=== PATIENT | female | born 1945 | race Two or more races ===

== ENCOUNTER 2024-06-13 03:31 | Inpatient (IN) | payer OTHER ==
[~2024-06-13] VITALS: Ht 157.5 cm; Wt 59.0 kg
[2024-06-13] VITALS (11 sets, daily range): BP systolic 104–150; BP diastolic 46–67; PULSE 72–97; RESP 14–20; TEMP 97.9–99.2; O2SAT 94–100
[2024-06-13] MEDS ORDERED: AZTREONAM 1GM INJ 1 GM in D5W 5% 50 ML IV ONE (04:00)
--- NOTE | 2024-06-13 04:23 | ED.PDOC ---
Altered Mental Status HPI Comments 79 year old female brought in by EMS presents to the ED with a chief complaint of ALOC onset today (06/13/2024) around 00:00. Per EMS, family members state patient began acting altered around midnight, went to bed, woke up around 03:00 trying to get out of bed, confused, altered, and weak. Patient was diagnosed w ith UTI about 2 weeks ago, finished antibiotics about 3 days ago. Family members noticed patient is acting similar to when she was first diagnosed with UTI. Per family patient's baseline is A&O x4, and is currently A&O x0. Upon EMS arrival, O2 sat was 90% on RA, was placed on 2L and O2 sat improved to 97%, tachycardiac 130-135 bpm, temperature 100.3F, BP initially 130 systolic. PMHx HTN, DM, skin and bone cancer. Chief Complaint: ALOC Time Seen by MD: 03:51 Reviewed Notes: Medications, Allergies Allergies: Coded Allergies: Iodine (Verified Allergy, Unknown, 06/13/24) Levofloxacin (Verified Allergy, Unknown, 06/13/24) Penicillins (Verified Allergy, Unknown, 06/13/24) Sulfa Antibiotics (Verified Allergy, Unknown, 06/13/24) Information Source: Patient, Emergency Med Personnel Mode of Arrival: EMS Severity: Moderate Timing: Hours Duration: Since onset Prehospital treatment: Oxygen (2L) Quality: Decreased Alertness, Change in Behavior Recent: Urinary Symptoms History of: Diabetes Associated Signs and Symptoms: None Past Medical History PAST MEDICAL HISTORY: Cancer (skin, bone), DM, HTN, UTI'S Surgical History: Unknown COST ACCOUNTING MANAGER History: No Pertinent COST ACCOUNTING MANAGER History Family History Family History: Unknown Social History Smoker: Non-Smoker Alcohol: Denies ETOH Use Drugs: Denies Drug Use Lives In: Home Constitutional: reports: fever, weakness; denies: chills, diaphoresis, fatigue, malaise, sweats, others EENTM: denies: blurred vision, double vision, ear bleeding, ear discharge, ear drainage, ear pain, ear ringing, eye pain, eye redness, hearing loss, mouth pain, mouth swelling, nasal discharge, nose bleeding, nose congestion, nose pain, photophobia, tearing, throat pain, throat swelling, voice changes, others Respiratory: denies: cough, hemoptysis, orthopnea, SOB at rest, shortness of breath, SOB with excertion, stridor, wheezing, others Cardiovascular: denies: chest pain, dizzy spells, diaphoresis, Dyspnea on exertion, edema, irregular heart beat, left arm pain, lightheadedness, palpitations, PND, syncope, others Gastrointestinal: denies: abdomen distended, abdominal pain, blood streaked bowels, constipated, diarrhea, dysphagia, difficulty swallowing, hematemesis, melena, nausea, poor appetite, poor fluid intake, rectal bleeding, rectal pain, vomiting, others Genitourinary: denies: abnormal vagina bleeding, burning, dyspareunia, dysuria, flank pain, frequency, hematuria, incontinence, pain, , vagina discharge, urgency, others Neurological: reports: weakness; denies: dizziness, fainting, headache, left sided numbness, left sided weakness, numbness, paresthesia, pre-existing deficit, right sided numbness, right sided weakness, seizure, speech problems, tingling, tremors, others Musculoskeletal: denies: back pain, gout, joint pain, joint swelling, muscle pain, muscle stiffness, neck pain, others Integumetry: denies: bruises, change in color, change in hair/nails, dryness, laceration, lesions, lumps, rash, wounds, others Allergic/Immunocompromised: denies: Difficulty Healing, Frequent Infections, Hives, Itching, others Hematologic/Lymphatic: denies: anemia, blood clots, easy bleeding, easy bruising, swollen glands, others Endocrine: denies: excessive hunger, excessive sweating, excessive thirst, excessive urination, flushing, intolerance to cold, intolerance to heat, unexplained weight gain, unexplained weight loss, others Psychiatric: denies: anxiety, bipolar disorder, depression, hopeless, panic disorder, schizophrenia, sleepless, suicidal, others Unable to Obtain due to: Altered Mental Status All Other Systems: Reviewed and Negative Physical Exam General Appearance: No Apparent Distress HEENT: PERRL/EOMI, Other (Dry mucous membranes) Neck: Full Range of Motion, Non-Tender, Normal Inspection Respiratory: Crackles, Decreased Breath Sounds, No Accessory Muscle Use, No Re spiratory Distress Cardiovascular: No Edema, No JVD, Regular Rate/Rhythm Breast Exam: Deferred Gastrointestinal: Non Tender, Soft Genitalia: Deferred Pelvic: Deferred Rectal: Deferred Extremities: Normal inspection, Normal range of motion, Non-tender, No pedal edema Neurologic: Alert (Somnolent, oriented x1), Other (Moves all extremities. No gross focal deficit. Confused. Does not follow commands.) Cerebellar Function: NOT DONE Reflexes: NOT DONE Skin: Dry, Normal Color, Warm Lymphatic: NOT DONE Was a procedure done? Was a procedure done?: No Differential Diagnosis (ALOC) Differential Diagnosis: Dehydration, Hypoglycemia, Encephalopathy, Sepsis, CVA, Mass Lesion, SAH, Other (UTI, pneumonia, among others) X-Ray, Labs, Meds, VS Vital Signs Date Time Temp Pulse Resp B/P (MAP) Pulse Ox O2 Delivery O2 Flow Rate FiO2 06/13/24 04:37 20 99 Nasal Cannula* 3 32 06/13/24 04:32 100.2 06/13/24 04:00 126 06/13/24 03:52 100.2 117 17 129/89 (102) 98 Lab Test 06/13/24 05:15 06/13/24 04:05 06/13/24 04:02 Range/Units Troponin I High Sensitivity Pending 9 </=34 ng/L White Blood Count 6.9 4.4-10.8 10^3/uL Red Blood Count 4.30 4.0-5.20 10^6/uL Hemoglobin 13.5 12.2-16.2 g/dL Hematocrit 39.8 36.0-46.0 % Mean Corpuscular Volume 92.5 80.0-100.0 fL Mean Corpuscular Hemoglobin 31.3 28.0-32.0 pg Mean Corpuscular Hemoglobin Concent 33.8 32.0-36.0 g/dL Red Cell Distribution Width 14.6 H 11.8-14.3 % Platelet Count 325 140-450 10^3/uL Mean Platelet Volume 7.4 6.9-10.8 fL Neutrophils (%) (Auto) 90.8 H 37.0-80.0 % Lymphocytes (%) (Auto) 5.7 L 10.0-50.0 % Monocytes (%) (Auto) 2.9 0.0-12.0 % Eosinophils (%) (Auto) 0.1 0.0-7.0 % Basophils (%) (Auto) 0.5 0.0-2.0 % Neutrophils # (Auto) 6.3 1.6-8.6 10 ^3/uL Lymphocytes # (Auto) 0.4 0.4-5.4 10 ^3/uL Monocytes # (Auto) 0.2 0-1.3 10 ^3/uL Eosinophils # (Auto) 0 0-0.8 10 ^3/uL Basophils # (Auto) 0 0-0.2 10 ^3/uL Nucleated Red Blood Cells 0.1 % Sodium Level 141 136-145 mmol/L Potassium Level 4.3 3.5-5.1 mmol/L Chloride Level 108 H 98-107 mmol/L Carbon Dioxide Level 23 20-31 mmol/L Anion Gap 10 5-15 Blood Urea Nitrogen 34 H 9-23 mg/dL Creatinine 1.35 H 0.550-1.02 mg/dL Glomerular Filtration Rate Calc 40 >90 mL/min BUN/Creatinine Ratio 25.2 H 10.0-20.0 Serum Glucose 125 H 74-106 mg/dL Lactic Acid Level 0.9 0.4-2.0 mmol/L Calcium Level 9.4 8.7-10.4 mg/dL Total Bilirubin 0.4 0.2-1.0 mg/dL Aspartate Amino Transferase (AST) 23 13-40 U/L Alanine Aminotransferase (ALT) 18 7-40 U/L Alkaline Phosphatase 105 46-116 U/L B-Type Natriuretic Peptide 26.63 0-100 pg/mL Total Protein 5.5 L 5.7-8.2 g/dL Albumin 3.9 3.2-4.8 g/dL POC Glucose 136 H 70-106 mg/dl Current Medications Medications (Trade) Dose Ordered Sig/Ben Route Start Time Stop Time Status Last Admin Acetaminophen (Tylenol Tablet Or Capsule) 1,000 mg ONCE ONCE PO 06/13/24 04:00 06/13/24 04:01 DC 06/13/24 04:32 Vancomycin HCl 250 ml @ 250 mls/hr ONCE ONCE IV 06/13/24 04:00 06/13/24 04:59 DC 06/13/24 04:44 Albuterol (Ventolin Medneb) 2.5 mg ONCE ONCE NEB 06/13/24 04:00 06/13/24 04:01 DC 06/13/24 04:37 Ipratropium [place] (Atrovent Medneb) 0.5 mg ONCE ONCE NEB 06/13/24 04:00 06/13/24 04:01 DC 06/13/24 04:37 PROCEDURE(s): HWOCT - HEAD WITHOUT CONTRAST REASON: aloc ORDER NUMBER(s): [id number], ACCESSION NUMBER(s): [id number] EXAM: CT HEAD WITHOUT CONTRAST INDICATION: aloc TECHNIQUE: CT of the head without intravenous contrast. Coronal and sagittal reformatted images are submitted. Radiation Dose : 1. Head: CT Dose: CTDI volume is 54.7 mGy. Dose-length product is 966.0 mGy*cm The dose indicators for CT are the volume Computed Tomography (CT) Dose Index (CTDIvol) and the Dose Length Product (DLP), and are measured in units of mGy and mGy-cm, respectively. These indicators are not patient dose, but values generated from the CT scanner acquisition factors. The report includes radiation exposure data for exposures received during this examination. All CT scans at this medical facility are performed using dose modulation techniques as appropriate to a performed exam including the following: Automated exposure control was utilized; adjustment of the MA and/or KV according to patient size; and use of iterative reconstruction technique. COMPARISON: None FINDINGS: There is no evidence of acute intracranial hemorrhage, extra-axial collection, mass effect, midline shift, herniation or hydrocephalus. The ventricles, sulci and cisterns are age appropriate. The pastrana-white differentiation is intact. Mastoid air cells are clear. Mucosal thickening is present in the left maxillary sinus. No depressed calvarial fracture. The surrounding soft tissues are unremarkable. IMPRESSION: 1. No evidence of acute intracranial abnormality. EDURE(s): CXRP - CHEST PORTABLE REASON: aloc, fever ORDER NUMBER(s): [id number], ACCESSION NUMBER(s): [id number] CHEST RADIOGRAPH Indication: aloc, fever Technique: Single frontal view of the chest was obtained Comparison: None FINDINGS: Lines and Tubes: None Lungs: Patchy right upper lobe consolidation. Pleura: No effusion. No pneumothorax. Cardiomediastinal contours: Unremarkable Bones: No acute osseous abnormality. IMPRESSION: 1. Patchy right upper lobe consolidation compatible with pneumonia. X-Ray, Labs, Meds, VS Comment 79-year-old female with a history of hypertension, diabetes, cancer and UTIs presenting with altered mental status Vitals remarkable for temperature 100.2, oxygen saturation 90% on room air Exam remarkable for diminished breath sounds, productive sounding cough, bilateral scattered crackles Rhythm strip independently interpreted by me: Sinus tach, rate 115, no ectopy. Chest x-ray IMPRESSION: 1. Patchy right upper lobe consolidation compatible with pneumonia. CT head IMPRESSION: 1. No evidence of acute intracranial abnormality. CBC unremarkable, metabolic panel remarkable for BUN 34, creatinine 1.35, lactate normal, BNP and troponin unremarkable Patient treated with the following in the ED: Albuterol 5 mg/Atrovent 0.5 mg nebulized, aztreonam 1 g IV, vancomycin 1 g IV, Tylenol 1 g p.o. On re-evaluation, patient is more alert and conversant, but still confused. She is not in respiratory distress. Oxygen saturation is normal on nasal cannula. Plan is to admit the patient for IV antibiotics and respiratory support as needed. Time of 1ST Reevaluation: 04:21 Reevaluation 1ST: Unchanged Patient Education/Counseling: Diagnosis, Treatment, Prognosis Family Education/Counseling: No Family Present Additional Information The following tests were ordered, and results were reviewed by me: TROP -x3, UA, CBC, CMP, XY CHEST, BLOOD CULTURE, BNP, CT HEAD WITHOUT CONTRAST I reviewed and agreed with the following test results read by other providers: CT HEAD WITHOUT CONTRAST, XY CHEST Additional Information was gathered from interviewing the following independent historians: EMS I discussed treatment and results with medical personnel and: patient, Departure 1 Departure Time of Disposition: 05:38 Impression: Primary Impression: Metabolic encephalopathy Additional Impression: Pneumonia Qualified Codes: J18.9 - Pneumonia, unspecified organism Disposition: ADMITTED INPATIENT Admit to: Tele Condition: Guarded Critical Care Note Critical Care Time?: No Stability Stability form required: No Heart Score Heart Score: Heart Score Response (Comments) Value History N/A 0 EKG N/A 0 Age N/A 0 Risk Factors N/A 0 Troponin N/A 0 Total 0 I personally scribed for JAYME DIAZ MD ([email or web address]) on 06/13/24 at 04:23. Electronically submitted by Izzy Kwong ([email or web address]). I personally scribed for JAYME DIAZ MD ([email or web address]) on 06/13/24 at 04:24. Electronically submitted by Izzy Kwong ([email or web address]). I personally scribed for JAYME DIAZ MD ([email or web address]) on 06/13/24 at 04:47. Electronically submitted by Izzy Kwong ([email or web address]). JAYME DIAZ MD Jun 13, 2024 04:23
[2024-06-13] MEDS: ACETAMINOPHEN 500 MG TAB or CAP PO ONE (04:32)
[2024-06-13] MEDS: IPRATROPIUM BROM 0.5 MG/2.5ML INH SOL NEB ONE (04:37)
[2024-06-13] MEDS: ALBUTEROL SULF 2.5 MG/0.5ML(0.5%) NEB SOLN NEB ONE (04:37)
[2024-06-13 04:42] LABS: Basophils # (auto) 0 10 ^3/uL (0-0.2); Basophils % (auto) 0.5 % (0.0-2.0); Eosinophils # (auto) 0 10 ^3/uL (0-0.8); Eosinophils % (auto) 0.1 % (0.0-7.0); Hematocrit 39.8 % (36.0-46.0); Hemoglobin 13.5 g/dL (12.2-16.2); Lymphocytes # (auto) 0.4 10 ^3/uL (0.4-5.4); Lymphocytes % (auto) 5.7 % (10.0-50.0); Mean Corpuscular Hemoglobin 31.3 pg (28.0-32.0); Mean Corpuscular Hgb Conc. 33.8 g/dL (32.0-36.0); Mean Corpuscular Volume 92.5 fL (80.0-100.0); Monocytes # (auto) 0.2 10 ^3/uL (0-1.3); Monocytes % (auto) 2.9 % (0.0-12.0); Neutrophils # (auto) 6.3 10 ^3/uL (1.6-8.6); Neutrophils % (auto) 90.8 % (37.0-80.0); Nucleated Red Blood Cells % 0.1 %; Platelet Count (auto) 325 10^3/uL (140-450); Red Cell Distribution Width 14.6 % (11.8-14.3); White Blood Cell 6.9 10^3/uL (4.4-10.8)
[2024-06-13] MEDS: VANCOMYCIN 1GM/250ML KIT 250 ML IV ONE (04:44)
[2024-06-13] MEDS: AZTREONAM 1GM INJ 1 GM in D5W 5% 50 ML IV ONE (04:45)
--- NOTE | 2024-06-13 04:51 | DVH ---
CHEST RADIOGRAPH Indication: aloc, fever Technique: Single frontal view of the chest was obtained Comparison: None FINDINGS: Lines and Tubes: None Lungs: Patchy right upper lobe consolidation. Pleura: No effusion. No pneumothorax. Cardiomediastinal contours: Unremarkable Bones: No acute osseous abnormality. IMPRESSION: 1. Patchy right upper lobe consolidation compatible with pneumonia.
--- NOTE | 2024-06-13 04:51 | DVH ---
EXAM: CT HEAD WITHOUT CONTRAST INDICATION: aloc TECHNIQUE: CT of the head without intravenous contrast. Coronal and sagittal reformatted images are submitted. Radiation Dose : 1. Head: CT Dose: CTDI volume is 54.7 mGy. Dose-length product is 966.0 mGy*cm The dose indicators for CT are the volume Computed Tomography (CT) Dose Index (CTDIvol) and the Dose Length Product (DLP), and are measured in units of mGy and mGy-cm, respectively. These indicators are not patient dose, but values generated from the CT scanner acquisition factors. The report includes radiation exposure data for exposures received during this examination. All CT scans at this medical facility are performed using dose modulation techniques as appropriate to a performed exam including the following: Automated exposure control was utilized; adjustment of the MA and/or KV according to patient size; and use of iterative reconstruction technique. COMPARISON: None FINDINGS: There is no evidence of acute intracranial hemorrhage, extra-axial collection, mass effect, midline s hift, herniation or hydrocephalus. The ventricles, sulci and cisterns are age appropriate. The pastrana-white differentiation is intact. Mastoid air cells are clear. Mucosal thickening is present in the left maxillary sinus. No depressed calvarial fracture. The surrounding soft tissues are unremarkable. IMPRESSION: 1. No evidence of acute intracranial abnormality.
[2024-06-13 04:59] LABS: Alanine Aminotransferase 18 U/L (7-40); Albumin 3.9 g/dL (3.2-4.8); Alkaline Phosphatase 105 U/L (46-116); Anion Gap 10 (5-15); Aspartate Aminotransferase 23 U/L (13-40); BUN/Creatinine Ratio 25.2 (10.0-20.0); Calcium 9.4 mg/dL (8.7-10.4); Carbon Dioxide 23 mmol/L (20-31); Potassium 4.3 mmol/L (3.5-5.1); Sodium 141 mmol/L (136-145)
[2024-06-13 05:00] LABS: Bilirubin, Total 0.4 mg/dL (0.2-1.0)
[2024-06-13 05:03] LABS: Blood Urea Nitrogen 34 mg/dL (9-23); Chloride 108 mmol/L (98-107); Glucose 125 mg/dL (74-106); Total Protein 5.5 g/dL (5.7-8.2)
[2024-06-13] MEDS ORDERED: DEXTROSE (50%) 50ML SYRG IV PRN (07:45)
[2024-06-13] MEDS ORDERED: IPRATROPIUM BROM 0.5 MG/2.5ML INH SOL NEB PRN (07:45)
[2024-06-13] MEDS ORDERED: ALBUTEROL SULF 2.5 MG/0.5ML(0.5%) NEB SOLN NEB PRN (07:45)
[2024-06-13] MEDS ORDERED: VANCOMYCIN PER PHARMACY 0 MG IV SCH (07:45)
--- NOTE | 2024-06-13 09:05 | DVHHP2 ---
History of Present Illness Reason for Visit: ALOC History of Present Illness Laurie Petersen is a 79-year-old female with past medical history of hypertension, diabetes, skin and bone cancer, UTI, and right kidney transplant who presents to the ED for ALOC since midnight. Per EMS reports patient was altered at home and patient was recently diagnosed with a UTI about 2 weeks ago when which she completed her course of antibiotics 3 days ago. Per report family members reported that the behavior with same currently as she had with a UTI. Upon examination patient reports that there is some discomfort in her right chest but no complaints of chest pain. Patient also states that she does not use oxygen at home. Patient denies abdominal pain, nausea, vomiting, diarrhea, recent fall or injury, recent sick contacts, chills, weakness, lightheadedness, and dizziness. Patient did report that she was here recently for a skin infection on her left upper chest. Cardiovascular: HTN Renal/: UTI Endocrine: Diabetes Past Medical History Skin/bone cancer Past Surgical History: Other Past Surgical History Right kidney transplant Family History: DM, Other (Mom and dad with diabetes) Smoke: Quit ALCOHOL: none Drugs: None Lives: with Family Domestic Violence: Neg Review of Systems Constitutional: No: Fever, Chills, Sweats, Weakness, Malaise, Other Eyes: No: Pain, Vision change, Conjunctivae inflammation, Eyelid inflammation, Other, Redness ENT: No: Ear pain, Ear discharge, Nose pain, Nose discharge, Nose congestion, Mouth pain, Mouth swelling, Throat pain, Throat swelling, Other Respiratory: Shortness of breath; No: Cough, Dry, SOB with excertion, Wheezing, Hemoptysis, Pleuritic Pain, Sputum, Wheezing, Other Cardiovascular: No: Chest Pain, Palpitations, Orthopnea, Paroxysmal Noc. Dyspnea, Edema, Lt Headedness, Other Gastrointestinal: No: Nausea, Vomiting, Abdominal Pain, Diarrhea, Constipation, Melena, Hematochezia, Other Genitourinary: No Dysuria, No Frequency, No Incontinence, No Hematuria, No Retention, No Other Musculoskeletal: No: other, neck pain, shoulder pain, arm pain, back pain, hand pain, leg pain, foot pain Skin: Rash, Other (Left upper chest); No: Lesions, Jaundice, Bruising Neurological: Confusion; No: Weakness, Numbness, Incoordination, Change in speech, Seizures, Other Allergies: Coded Allergies: Iodine (Verified Allergy, Unknown, 06/13/24) Levofloxacin (Verified Allergy, Unknown, 06/13/24) Penicillins (Verified Allergy, Unknown, 06/13/24) Sulfa Antibiotics (Verified Allergy, Unknown, 06/13/24) Medications Current Medications Medications Dose Ordered Sig/Ben Route Start Time Stop Time Status Last Admin Dose Admin Sodium Chloride 1,000 ml @ 70 mls/hr [id number] IV 06/13/24 07:45 UNV Ondansetron HCl 4 mg Q4HP PRN IV 06/13/24 07:45 UNV Enoxaparin Sodium 30 mg DAILY SC 06/13/24 10:00 UNV Acetaminophen 650 mg Q6HP PRN PO 06/13/24 07:45 UNV Vancomycin HCl 0 ml @ 0 mls/hr UD IV 06/13/24 07:45 UNV Aztreonam 1 gm/ Dextrose 50 ml @ 100 mls/hr Q8HR IV 06/13/24 14:00 UNV Diagnostic Test (Pha) 1 strip ACHS 06/13/24 11:30 UNV Insulin Human Regular ACHS SC 06/13/24 11:30 UNV Dextrose 50 ml UD PRN IV 06/13/24 07:45 UNV Albuterol 2.5 mg Q6HWA NEB 06/13/24 12:00 UNV Albuterol 2.5 mg Q2HPRN PRN NEB 06/13/24 07:45 UNV Ipratropium [place] 0.5 mg Q6HWA NEB 06/13/24 12:00 UNV Ipratropium [place] 0.5 mg Q2HPRN PRN NEB 06/13/24 07:45 UNV Methylprednisolone Sodium Succinate 40 mg Q8HR IV 06/13/24 14:00 UNV Famotidine 20 mg DAILY IV 06/13/24 10:00 UNV Exam Vital Signs Vital Signs Date Time Temp Pulse Resp B/P (MAP) Pulse Ox O2 Delivery O2 Flow Rate FiO2 06/13/24 05:32 99.6 06/13/24 04:37 20 99 Nasal Cannula* 3 32 06/13/24 04:00 126 06/13/24 03:52 129/89 (102) General Appearance: Alert, Oriented X3, Cooperative, No acute distress HEENT: Atraumatic, PERRLA, EOMI, Mucous membr. moist/pink Respiratory: Normal air movement Cardiovascular: Normal S1, Normal S2, No murmurs Abdominal: Normal bowel sounds, Soft, No tenderness, No hepatospenomegaly, No masses Extremities: No clubbing, No cyanosis, No edema, Normal pulses, No tenderness/swelling Neuro: Normal speech, Strength at 5/5 X4 ext, Normal tone, Sensation intact Psych/Mental Status: Mental status NL, Mood NL Labs/Xrays Labs Test 06/13/24 07:00 06/13/24 04:05 06/13/24 04:02 Range/Units Troponin I High Sensitivity 32 </=34 ng/L White Blood Count 6.9 4.4-10.8 10^3/uL Red Blood Count 4.30 4.0-5.20 10^6/uL Hemoglobin 13.5 12.2-16.2 g/dL Hematocrit 39.8 36.0-46.0 % Mean Corpuscular Volume 92.5 80.0-100.0 fL Mean Corpuscular Hemoglobin 31.3 28.0-32.0 pg Mean Corpuscular Hemoglobin Concent 33.8 32.0-36.0 g/dL Red Cell Distribution Width 14.6 H 11.8-14.3 % Platelet Count 325 140-450 10^3/uL Mean Platelet Volume 7.4 6.9-10.8 fL Neutrophils (%) (Auto) 90.8 H 37.0-80.0 % Lymphocytes (%) (Auto) 5.7 L 10.0-50.0 % Monocytes (%) (Auto) 2.9 0.0-12.0 % Eosinophils (%) (Auto) 0.1 0.0-7.0 % Basophils (%) (Auto) 0.5 0.0-2.0 % Neutrophils # (Auto) 6.3 1.6-8.6 10 ^3/uL Lymphocytes # (Auto) 0.4 0.4-5.4 10 ^3/uL Monocytes # (Auto) 0.2 0-1.3 10 ^3/uL Eosinophils # (Auto) 0 0-0.8 10 ^3/uL Basophils # (Auto) 0 0-0.2 10 ^3/uL Nucleated Red Blood Cells 0.1 % Sodium Level 141 136-145 mmol/L Potassium Level 4.3 3.5-5.1 mmol/L Chloride Level 108 H 98-107 mmol/L Carbon Dioxide Level 23 20-31 mmol/L Anion Gap 10 5-15 Blood Urea Nitrogen 34 H 9-23 mg/dL Creatinine 1.35 H 0.550-1.02 mg/dL Glomerular Filtration Rate Calc 40 >90 mL/min BUN/Creatinine Ratio 25.2 H 10.0-20.0 Serum Glucose 125 H 74-106 mg/dL Lactic Acid Level 0.9 0.4-2.0 mmol/L Calcium Level 9.4 8.7-10.4 mg/dL Total Bilirubin 0.4 0.2-1.0 mg/dL Aspartate Amino Transferase (AST) 23 13-40 U/L Alanine Aminotransferase (ALT) 18 7-40 U/L Alkaline Phosphatase 105 46-116 U/L B-Type Natriuretic Peptide 26.63 0-100 pg/mL Total Protein 5.5 L 5.7-8.2 g/dL Albumin 3.9 3.2-4.8 g/dL POC Glucose 136 H 70-106 mg/dl EXAM: CT HEAD WITHOUT CONTRAST INDICATION: aloc TECHNIQUE: CT of the head without intravenous contrast. Coronal and sagittal reformatted images are submitted. Radiation Dose : 1. Head: CT Dose: CTDI volume is 54.7 mGy. Dose-length product is 966.0 mGy*cm The dose indicators for CT are the volume Computed Tomography (CT) Dose Index (CTDIvol) and the Dose Length Product (DLP), and are measured in units of mGy and mGy-cm, respectively. These indicators are not patient dose, but values generated from the CT scanner acquisition factors. The report includes radiation exposure data for exposures received during this examination. All CT scans at this medical facility are performed using dose modulation techniques as appropriate to a performed exam including the following: Automated exposure control was utilized; adjustment of the MA and/or KV according to patient size; and use of iterative reconstruction technique. COMPARISON: None FINDINGS: There is no evidence of acute intracranial hemorrhage, extra-axial collection, mass effect, midline shift, herniation or hydrocephalus. The ventricles, sulci and cisterns are age appropriate. The pastrana-white differentiation is intact. Mastoid air cells are clear. Mucosal thickening is present in the left maxillary sinus. No depressed calvarial fracture. The surrounding soft tissues are unremarkable. IMPRESSION: 1. No evidence of acute intracranial abnormality. CHEST RADIOGRAPH Indication: aloc, fever Technique: Single frontal view of the chest was obtained Comparison: None FINDINGS: Lines and Tubes: None Lungs: Patchy right upper lobe consolidation. Pleura: No effusion. No pneumothorax. Cardiomediastinal contours: Unremarkable Bones: No acute osseous abnormality. IMPRESSION: 1. Patchy right upper lobe consolidation compatible with pneumonia. Assessment/Plan Assessment/Plan Assessment/Plan: PNA rule out sepsis PEGGY Acute encephalopathy MILENA chest skin lesion Labs Respiratory treatments IV antibiotics-vancomycin +aztreonam Antipyretics Troponin CT head noted BNP noted Blood cultures Chest x-ray UA Lactic Troponin negative x2 IV steroids PPI Lovenox Wound culture Wound consult IV fluids A.m. labs Diabetes type 2 Hemoglobin A1c ISS and Accu-Cheks Chronic hypertension Continue medications History of skin and bone cancer Follow up outpatient with PCP FEN/PPX diet IV fluids DVT prophylaxis-Lovenox PUD prophylaxis-continue home medication, Protonix Admit patient to Med surg Home medications reconciled Discussed plan of care with patient and nurse Plan discussed with: Patient My Orders Orders - CHAYA CRAWFORD [employer] INS[employer] Procedure Category Date Status Time Admit ADMIT 06/13/24 Transmitted 07:33 Allergies ABI 06/13/24 In Process 07:33 Code Status CODE 06/13/24 Transmitted 07:33 Sodium Chloride 0.9% PHA 06/13/24 Logged 07:45 Ondansetron Hcl PHA 06/13/24 Logged (Zofran) 07:45 Complete Blood Count LAB 06/14/24 Verified 04:00 Comprehensive LAB 06/14/24 Verified Metabolic Panel 04:00 Cardiac DIET 06/13/24 Transmitted Diet-2gna,Lofat,Lochol Breakfast Enoxaparin Sodium PHA 06/13/24 Logged (Lovenox) 10:00 Acetaminophen Tablet PHA 06/13/24 Logged (Tylenol Tablet) 07:45 Vancomycin Per PHA 06/13/24 Logged Pharmacy 07:45 Aztreonam 1gm Inj PHA 06/13/24 Logged (Azactam) 14:00 Hemoglobin A1c LAB 06/13/24 Logged 07:35 Glucose Blood PHA 06/13/24 Logged (Accu-Chek Comfort 11:30 Insulin R (Human) PHA 06/13/24 Logged (Insulin R) 11:30 Dextrose 50% Syringe PHA 06/13/24 Logged 07:45 Albuterol Medneb PHA 06/13/24 Logged (Ventolin Medneb) 12:00 Albuterol Medneb PHA 06/13/24 Logged (Ventolin Medneb) 07:45 Ipratropium Medneb PHA 06/13/24 Logged (Atrovent Medneb) 12:00 Ipratropium Medneb PHA 06/13/24 Logged (Atrovent Medneb) 07:45 Methylprednisolone PHA 06/13/24 Logged Sod Succ (Solu Medrol 14:00 Famotidine Injection PHA 06/13/24 Logged (Pepcid Injection) 10:00 Date of Service: Jun 13, 2024 Billing Provider: CHAYA CRAWFORD Common Visit Codes: [id number] INP/OBS CARE (HIGH) CHAYA CRAWFORD Jun 13, 2024 09:05
[2024-06-13] MEDS ORDERED: PREG100C66 PO (09:06)
[2024-06-13] MEDS ORDERED: ATOR20TA50 PO (09:06)
[2024-06-13] MEDS ORDERED: SODI650T PO (09:06)
[2024-06-13] MEDS ORDERED: LOS25T (09:06)
[2024-06-13] MEDS ORDERED: TACR1CAP4 PO (09:06)
[2024-06-13] MEDS ORDERED: PANT40T (09:06)
[2024-06-13] MEDS ORDERED: PRE5T (09:06)
[2024-06-13] MEDS: SODIUM CHLORIDE 0.9% 1,000 ML IV SCH (09:23)
[2024-06-13] MEDS: FAMOTIDINE (10MG/ML) 2ML VL IV SCH (11:37)
[2024-06-13] MEDS: ACCU-CHEK COMFORT CURVE STRIP VI SCH (11:38)
[2024-06-13] MEDS: ENOXAPARIN SOD 30 MG/0.3 ML SYRINGE SC SCH (11:38)
[2024-06-13] MEDS: InsuLIN REG 1unit/0.01ml Soln (100units/ml) SC SCH (11:45)
[2024-06-13] MEDS: IPRATROPIUM BROM 0.5 MG/2.5ML INH SOL NEB SCH (11:46)
[2024-06-13] MEDS: ALBUTEROL SULF 2.5 MG/0.5ML(0.5%) NEB SOLN NEB SCH (11:46)
[2024-06-13] MEDS: methylPREDNISolone SOD SUCC 40 MG/ML VL IV SCH (14:22)
[2024-06-13] MEDS: AZTREONAM 1GM INJ 1 GM in D5W 5% 50 ML IV SCH (16:25)
[2024-06-13] MEDS: ACETAMINOPHEN 325 MG TAB PO PRN (17:44)
[2024-06-13] MEDS ORDERED: DICL75TA3 PO (18:11)
[2024-06-13] MEDS ORDERED: METH-1286 PO (18:11)
[2024-06-13] MEDS ORDERED: POLY335015 PO (18:11)
[2024-06-13] MEDS ORDERED: FLUT1SPR5 (18:11)
[2024-06-13] MEDS ORDERED: IPRA0.03 IN (18:11)
[2024-06-13] MEDS ORDERED: ALBUAER3 IN (18:11)
[2024-06-13] MEDS ORDERED: HYDR-4798 PO (18:11)
[2024-06-13] MEDS ORDERED: DEXA4TAB PO (18:11)
[2024-06-13] MEDS ORDERED: ZINC220C8 PO (18:11)
[2024-06-13] MEDS ORDERED: DARA1SOL2 SC (18:11)
[2024-06-13] MEDS ORDERED: ALBU2TAB11 PO (18:11)
[2024-06-13] MEDS ORDERED: NIFE1TAB31 PO (18:11)
[2024-06-13] MEDS ORDERED: DOCU-94 PO (18:11)
[2024-06-13] MEDS ORDERED: ASCO500T11 PO (18:11)
[2024-06-13] MEDS ORDERED: INSLANTI SC (18:11)
[2024-06-13] MEDS ORDERED: ASPI325T6 PO (18:11)
[2024-06-14] VITALS (11 sets, daily range): BP systolic 138–176; BP diastolic 61–90; PULSE 77–102; RESP 16–20; TEMP 97.5–98.7; O2SAT 95–100
[2024-06-14] MEDS: hydrALAZINE HCL 20 MG/ML VL IV PRN (01:17)
[2024-06-14] MEDS: VANCOMYCIN 750MG KIT 100 ML IV SCH (05:53)
[2024-06-14] MEDS ORDERED: HYDROcodone-ACET 10/325MG TAB PO SCH (07:15)
[2024-06-14] MEDS ORDERED: NIFEdipine ER 30 MG TAB PO SCH (07:15)
[2024-06-14] MEDS: HYDROcodone-ACET 10/325MG TAB PO SCH (08:46)
[2024-06-14] MEDS: ONDANSETRON HCL 4 MG/2 ML VIAL IV PRN (09:55)
[2024-06-14] MEDS: TACROLIMUS 1 MG CAP PO SCH ×2 (10:22→21:10)
[2024-06-14 11:41] LABS: Basophils # (auto) 0 10 ^3/uL (0-0.2); Basophils % (auto) 0.1 % (0.0-2.0); Eosinophils # (auto) 0 10 ^3/uL (0-0.8); Hematocrit 39.1 % (36.0-46.0); Hemoglobin 12.5 g/dL (12.2-16.2); Lymphocytes # (auto) 0.2 10 ^3/uL (0.4-5.4); Lymphocytes % (auto) 2.2 % (10.0-50.0); Mean Corpuscular Hemoglobin 30.8 pg (28.0-32.0); Mean Corpuscular Hgb Conc. 31.9 g/dL (32.0-36.0); Mean Corpuscular Volume 96.5 fL (80.0-100.0); Monocytes # (auto) 0.2 10 ^3/uL (0-1.3); Monocytes % (auto) 1.8 % (0.0-12.0); Neutrophils % (auto) 95.9 % (37.0-80.0); Platelet Count (auto) 302 10^3/uL (140-450); Red Blood Cells 4.06 10^6/uL (4.0-5.20); Red Cell Distribution Width 15.1 % (11.8-14.3); White Blood Cell 11.4 10^3/uL (4.4-10.8)
--- NOTE | 2024-06-14 11:49 | DVHPN2 ---
Subjective 79-year-old female with a history of kidney cancer status post kidney transplant, hypertension, type 2 diabetes came with a chief complaint of right- sided chest pain and right-sided back pain and was diagnosed with pneumonia She takes rejection medications for her kidney transplant at home including prednisone Takes Adah at home for her pain Changes from previous H/P or p: Changes Eyes: No Pain, No Vision change, No Conjunctivae inflammation, No Eyelid inflammation, No Other, No Redness ENT: No Ear pain, No Ear discharge, No Nose pain, No Nose discharge, No Nose congestion, No Mouth pain, No Mouth swelling, No Throat pain, No Throat swelling, No Other Cardiovascular: No Chest Pain, No Palpitations, No Orthopnea, No Paroxysmal Noc. Dyspnea, No Edema, No Lt Headedness, No Other Respiratory: No Cough, No Dry; Shortness of breath; No SOB with excertion, No Wheezing, No Hemoptysis, No Pleuritic Pain, No Sputum, No Other Gastrointestinal: No Nausea, No Vomiting, No Abdominal Pain, No Diarrhea, No Constipation, No Melena, No Hematochezia, No Other Genitourinary: No Dysuria, No Frequency, No Incontinence, No Hematuria, No Retention, No Other Musculoskeletal: No other, No neck pain, No shoulder pain, No arm pain, No back pain, No hand pain, No leg pain, No foot pain Skin: Rash; No Lesions, No Jaundice, No Bruising; Other (Left upper chest) Objective Vitals Vital Signs Date Time Temp Pulse Resp B/P (MAP) Pulse Ox O2 Delivery O2 Flow Rate FiO2 06/14/24 09:00 98.7 102 17 176/90 (118) 97 98.7 06/14/24 06:24 Room Air* 0 21 Intake/Output Intake and Output 06/14/24 07:00 Intake Total 1340 ml Balance 1340 ml Intake Oral 450 ml IV Total 890 ml # Voids 7 # Bowel Movements 3 General Appearance: Alert, Oriented X3, Cooperative, No acute distress Lungs: Clear to auscultation, Normal air movement Cardiovascular: Regular rate, Normal S1, Normal S2 Abdomen: Normal bowel sounds, Soft, No tenderness Extremities: No edema Medications Current Medications Medications Dose Ordered Sig/Ben Route Start Time Stop Time Status Last Admin Dose Admin Sodium Chloride 1,000 ml @ 70 mls/hr [id number] IV 06/13/24 07:45 06/13/24 09:23 70 MLS/HR Ondansetron HCl 4 mg Q4HP PRN IV 06/13/24 07:45 06/14/24 09:55 4 MG Enoxaparin Sodium 30 mg DAILY SC 06/13/24 10:00 06/13/24 11:38 30 MG Acetaminophen 650 mg Q6HP PRN PO 06/13/24 07:45 06/14/24 01:25 650 MG Vancomycin HCl 0 ml @ 0 mls/hr UD IV 06/13/24 07:45 Aztreonam 1 gm/ Dextrose 50 ml @ 100 mls/hr Q8H IV 06/13/24 15:00 06/14/24 06:33 100 MLS/HR Diagnostic Test (Pha) 1 strip ACHS 06/13/24 11:30 06/14/24 11:34 1 STRIP Insulin Human Regular ACHS SC 06/13/24 11:30 06/14/24 06:38 8 UNITS Dextrose 50 ml UD PRN IV 06/13/24 07:45 Albuterol 2.5 mg Q6HWA NEB 06/13/24 12:00 06/14/24 06:23 2.5 MG Albuterol 2.5 mg Q2HPRN PRN NEB 06/13/24 07:45 Ipratropium [place] 0.5 mg Q6HWA NEB 06/13/24 12:00 06/14/24 06:23 0.5 MG Ipratropium [place] 0.5 mg Q2HPRN PRN NEB 06/13/24 07:45 Methylprednisolone Sodium Succinate 40 mg Q8HR IV 06/13/24 14:00 06/14/24 06:26 40 MG Famotidine 20 mg DAILY IV 06/13/24 10:00 06/13/24 11:37 20 MG Vancomycin HCl 100 ml @ 100 mls/hr Q24H IV 06/14/24 06:00 06/14/24 05:53 100 MLS/HR Hydralazine HCl 10 mg Q6HP PRN IV 06/14/24 01:00 06/14/24 08:46 10 MG Ascorbic Acid 250 mg DAILY PO 06/14/24 10:00 Atorvastatin Calcium 20 mg HS PO 06/14/24 22:00 Docusate Sodium 100 mg BID PO 06/14/24 10:00 Insulin Glargine 35 units DAILY SC 06/14/24 10:00 Losartan Potassium 25 mg DAILY PO 06/14/24 10:00 Nifedipine 30 mg PRN PO 06/14/24 07:15 Prednisone 5 mg DAILY PO 06/14/24 10:00 Acetaminophen/ Hydrocodone Bitart 1 tab Q6HPRN PO 06/14/24 08:00 06/14/24 08:46 1 TAB Tacrolimus 2 mg BID PO 06/14/24 22:00 Laboratory Results Laboratory Tests 06/14/24 11:00 Chemistry Test 06/14/24 11:00 Albumin Pending Calcium Level Pending Magnesium Level Pending Total Protein Pending LFT Test 06/14/24 11:00 Alanine Aminotransferase (ALT) Pending Alkaline Phosphatase Pending Aspartate Amino Transferase (AST) Pending Total Bilirubin Pending Microbiology Microbiology Date/Time Source Procedure Growth Status 06/13/24 04:05 Blood Blood Culture - Preliminary NO GROWTH AFTER 24 HOURS OF INCUBATION. Resulted Assessment/Plan Assessment/Plan Community acquired pneumonia, Gram-negative versus Gram-positive Two diabetes Hypertension Chronic kidney disease, status post kidney transplant Plan IV antibiotics vancomycin and aztreonam Oxygen as needed Med neb treatments as needed Resume the home medications including rejection medications Adah p.r.n. for pain control Full code Continue sliding scale insulin Continue Lantus insulin Discontinue Solu-Medrol to help with her hyperglycemia Plan discussed with: Patient My Orders Orders - YAMILETH LOPEZ MD Procedure Category Date Status Time Ascorbic Acid Tablet PHA 06/14/24 In Process (Vitamin C Tablet) 10:00 Atorvastatin (Lipitor) PHA 06/14/24 In Process 22:00 Docusate Sodium PHA 06/14/24 In Process Capsule (Colace 10:00 Insulin Lantus PHA 06/14/24 In Process (Glargine) (Lantus) 10:00 Losartan Tablet PHA 06/14/24 In Process (Cozaar Tablet) 10:00 Nifedipine Er PHA 06/14/24 In Process (Procardia Xl 07:15 Prednisone Tablet PHA 06/14/24 In Process 10:00 Hydrocodone-Acet PHA 06/14/24 In Process 10/325mg Tab (Adah 08:00 Tacrolimus (Prograf) PHA 06/14/24 In Process 22:00 Date of Service: Jun 14, 2024 Billing Provider: YAMILETH LOPEZ MD Common Visit Codes: NOT BILLABLE YAMILETH LOPEZ MD Jun 14, 2024 11:49
[2024-06-14 11:52] LABS: Alanine Aminotransferase 15 U/L (7-40); Albumin 3.9 g/dL (3.2-4.8); Alkaline Phosphatase 99 U/L (46-116); Anion Gap 8 (5-15); Calcium 9.8 mg/dL (8.7-10.4); Carbon Dioxide 21 mmol/L (20-31); Chloride 103 mmol/L (98-107); Magnesium 2.3 mg/dL (1.6-2.6); Potassium 4.5 mmol/L (3.5-5.1)
[2024-06-14 11:55] LABS: Aspartate Aminotransferase 10 U/L (13-40); Bilirubin, Total 0.3 mg/dL (0.2-1.0); Blood Urea Nitrogen 28 mg/dL (9-23); Sodium 132 mmol/L (136-145)
[2024-06-14 11:56] LABS: Total Protein 5.6 g/dL (5.7-8.2)
[2024-06-14 11:57] LABS: Glucose 499 mg/dL (74-106)
[2024-06-14] MEDS: DOCUSATE SOD 100 MG CAP PO SCH (12:25)
[2024-06-14] MEDS: predniSONE 5 MG TAB PO SCH (12:25)
[2024-06-14] MEDS: ASCORBIC ACID 500 MG TAB PO SCH (12:26)
[2024-06-14] MEDS: INSULIN LANTUS (GLARGINE) 1 /0.01ml (100units/ml) SC SCH (12:27)
[2024-06-14] MEDS: LOSARTAN POTASSIUM 25 MG TAB PO SCH (12:29)
[2024-06-14] MEDS ORDERED: NOREPINEPHRINE 8 MG/250ML KIT 250 ML IV ONE (22:05)
[2024-06-14] MEDS: ATORVASTATIN 20 MG TAB PO SCH (22:38)
[2024-06-15] VITALS (12 sets, daily range): BP systolic 133–158; BP diastolic 61–80; PULSE 74–97; RESP 15–19; TEMP 97.5–98.5; O2SAT 95–100
--- NOTE | 2024-06-15 09:55 | DVHINCON2 ---
Date of service: Jun 15, 2024 Family History: Diabetes mellitus G8 MOTHER G8 FATHER FH: heart attack G8 FATHER FH: stroke G8 MOTHER Allergies: Coded Allergies: Iodine (Verified Allergy, Unknown, 06/13/24) Levofloxacin (Verified Allergy, Unknown, 06/13/24) Penicillins (Verified Allergy, Unknown, 06/13/24) Sulfa Antibiotics (Verified Allergy, Unknown, 06/13/24) Home Meds Reported Medications Ipratropium [place] (Ipratropium [place]) 0.03 % Spr, 3 MG IN, SPRAY 06/13/24 Albuterol Sulfate (VENTOLIN MDI) 90 Mcg Ih, 0.5 MG IN, INH 06/13/24 Ascorbic Acid (VITAMIN C TABLET) 500 Mg Tb, 250 MG PO DAILY, TAB 06/13/24 Methenamine Hippurate (Hiprex) 1 Gm Tab, 1 GM PO BID, TAB 06/13/24 Jnoypntxasl-Ghirlbtroiioo-Iaqc (Darzalex Faspro [id number] mg-Ut/15Ml) 1 Capri Capri, 1 CAPRI SC for CHEMO, ML 06/13/24 Diclofenac Sodium (Diclofenac Sodium Dr) 75 Mg Tab, 2 GM PO PRN, TAB 06/13/24 Hydrocodone-Acetaminophen (Hydrocodone Bitartrate/AC 10-325 mg) 1 Tab Tab, 1 TAB PO PRN, TAB 06/13/24 Fluticasone Propionate (Nasal) (Flonase Allergy Relief) 50 Mcg/Act Spr, 50 MG PRN, SPRAY 06/13/24 Albuterol Sulfate (Albuterol Sulfate) 2 Mg Tab, 90 MG PO PRN, MG 06/13/24 Dexamethasone (Dexamethasone) 4 Mg Tab, 40 MG PO QWEEKLY for ONLY ON NON CHEMO WEEKS, MG 06/13/24 Polyethylene Glycol 3350 (Miralax) 17 Gm Pow, 17 GM PO PRN, POW 06/13/24 Insulin Glargine (Lantus) 100 Unit/Ml Inj, 35 UNIT SC DAILY, INJ 06/13/24 Zinc Sulfate (Zinc Sulfate) 220 Mg Cap, 50 MG PO DAILY for 30 Days, MG 06/13/24 Docusate Sodium (Colace) 100 Mg Cap, 100 MG PO BID, CAP 06/13/24 Aspirin (Aspirin) 325 Mg Tab, 81 MG PO DAILY for 30 Days, MG 06/13/24 Nifedipine (Nifedipine Er) 30 Mg Tab, 30 MG PO PRN, TAB 06/13/24 Losartan Potassium (Losartan Potassium) 25 Mg Tab, 1 DAILY 06/13/24 Pantoprazole Sodium Sesquihydr (Pantoprazole Sodium) 40 Mg Tab, 1 DAILY 06/13/24 Sodium Bicarbonate (Sodium Bicarbonate) 650 Mg Tab, 1 TAB PO BID 06/13/24 Prednisone (Prednisone) 5 Mg Tab, 1 DAILY 06/13/24 Tacrolimus (Tacrolimus) 1 Mg Cap, 1 MG PO BID 06/13/24 Atorvastatin Calcium (ATORVASTATIN CALCIUM) 20 Mg Tab, 1 TAB PO HS 06/13/24 Pregabalin (Pregabalin) 100 Mg Cap, 75 MG PO BID 06/13/24 Current Medications Current Medications Medications (Trade) Dose Ordered Sig/Ben Route PRN Reason Start Time Stop Time Status Last Admin Ascorbic Acid (Vitamin C Tablet) 250 mg DAILY PO 06/14/24 10:00 06/14/24 12:26 Atorvastatin Calcium (Lipitor) 20 mg HS PO 06/14/24 22:00 06/14/24 22:38 Docusate Sodium (Colace Capsule) 100 mg BID PO 06/14/24 10:00 06/14/24 22:38 Insulin Glargine (Lantus) 35 units DAILY SC 06/14/24 10:00 06/14/24 12:27 Losartan Potassium (Cozaar Tablet) 25 mg DAILY PO 06/14/24 10:00 06/14/24 12:29 Prednisone 5 mg DAILY PO 06/14/24 10:00 06/14/24 12:25 Tacrolimus (Prograf) 1 mg BID PO 06/14/24 10:00 06/14/24 10:27 DC 06/14/24 10:22 Tacrolimus (Prograf) 2 mg BID PO 06/14/24 22:00 06/15/24 08:41 Vital Signs Vital Signs Date Time Temp Pulse Resp B/P (MAP) Pulse Ox O2 Delivery O2 Flow Rate FiO2 06/15/24 09:00 97.8 88 16 150/76 (100) 97 97.8 06/14/24 20:00 Room Air* 0 21 Labs/Diagnostic Data Labs Test 06/15/24 06:25 06/14/24 11:00 06/13/24 07:00 2/13/25 04:05 Range/Units POC Glucose 152 H 70-106 mg/dl White Blood Count 11.4 #H 4.4-10.8 10^3/uL Red Blood Count 4.06 4.0-5.20 10^6/uL Hemoglobin 12.5 12.2-16.2 g/dL Hematocrit 39.1 36.0-46.0 % Mean Corpuscular Volume 96.5 # 80.0-100.0 fL Mean Corpuscular Hemoglobin 30.8 28.0-32.0 pg Mean Corpuscular Hemoglobin Concent 31.9 L 32.0-36.0 g/dL Red Cell Distribution Width 15.1 H 11.8-14.3 % Platelet Count 302 140-450 10^3/uL Mean Platelet Volume 7.8 6.9-10.8 fL Neutrophils (%) (Auto) 95.9 H 37.0-80.0 % Lymphocytes (%) (Auto) 2.2 L 10.0-50.0 % Monocytes (%) (Auto) 1.8 0.0-12.0 % Eosinophils (%) (Auto) 0.0 0.0-7.0 % Basophils (%) (Auto) 0.1 0.0-2.0 % Neutrophils # (Auto) 11.0 H 1.6-8.6 10 ^3/uL Lymphocytes # (Auto) 0.2 L 0.4-5.4 10 ^3/uL Monocytes # (Auto) 0.2 0-1.3 10 ^3/uL Eosinophils # (Auto) 0 0-0.8 10 ^3/uL Basophils # (Auto) 0 0-0.2 10 ^3/uL Nucleated Red Blood Cells 0.0 % Sodium Level 132 #L 136-145 mmol/L Potassium Level 4.5 3.5-5.1 mmol/L Chloride Level 103 98-107 mmol/L Carbon Dioxide Level 21 20-31 mmol/L Anion Gap 8 5-15 Blood Urea Nitrogen 28 H 9-23 mg/dL Creatinine 1.40 H 0.550-1.02 mg/dL Glomerular Filtration Rate Calc 39 >90 mL/min BUN/Creatinine Ratio 20.0 10.0-20.0 Serum Glucose 499 *H 74-106 mg/dL Calcium Level 9.8 8.7-10.4 mg/dL Magnesium Level 2.3 1.6-2.6 mg/dL Total Bilirubin 0.3 0.2-1.0 mg/dL Aspartate Amino Transferase (AST) 10 L 13-40 U/L Alanine Aminotransferase (ALT) 15 7-40 U/L Alkaline Phosphatase 99 46-116 U/L Total Protein 5.6 L 5.7-8.2 g/dL Albumin 3.9 3.2-4.8 g/dL Troponin I High Sensitivity 32 </=34 ng/L Hemoglobin A1c 7.4 H <5.7 % A1C Lactic Acid Level 0.9 0.4-2.0 mmol/L B-Type Natriuretic Peptide 26.63 0-100 pg/mL Microbiology Date/Time Source Procedure Growth Status 06/13/24 04:05 Blood Blood Culture - Preliminary NO GROWTH AFTER 48 HOURS OF INCUBATION. Resulted Assessment [id number] COMPLEX LEFT UPPER WALL SKIN LESION, CELLULITIS, SKIN CA BX PATH PENDING CONTINUE CLOSE OBSERVATION IV ABX CONSIDER SURGERY BASED ON ONCOLOGY EVAL AND SKIN LESION RECENT BX PATH Plan discussed with: Patient STACI TORRES MD Jun 15, 2024 09:55
--- NOTE | 2024-06-15 10:54 | DVHINCON2 ---
DATE OF CONSULTATION: 06/15/2024 HISTORY OF PRESENT ILLNESS: She is 79 years old, known to me from previous surgery. She had a skin lesion removed left upper chest comes back with another lesion in that same location not a different location. Biopsy has been done by Dermatology. The biopsy is pending. I was asked to see her in regards to that and it looks inflamed and it also looks increased in size according to her. She came in with abdominal pain also and she was diagnosed with UTI about two weeks ago and was given antibiotics and she also has history of pneumonia. PAST MEDICAL HISTORY: Hypertension, diabetes. SURGICAL HISTORY: Significant for kidney transplant. She has history of multiple myeloma. PHYSICAL EXAMINATION: VITAL SIGNS: Afebrile, stable signs. HEENT: No pallor, cyanosis, or jaundice. NECK: Supple, nontender, with no thyromegaly, lymphadenopathy. CHEST AND LUNGS: Clear. The left upper chest indicates a complex infected lesion. Biopsy report pending. ABDOMEN: Soft. NEUROLOGICAL: Not assessed. EXTREMITIES: Unremarkable. CLINICAL IMPRESSION: Left upper chest wall lesion with multiple nodules, rule out skin cancer. There is possibility of ongoing infection and cellulitis for which she has been given antibiotics. At this point, needs close observation and consider the need for surgery based upon the biopsy pathology and ongoing evaluation. MD JHONY Cortés/HOLLIE/EFRAIN TID: [id number] RECEIPT: [id number] cc: Eric Claudio MD
[2024-06-15 11:09] LABS: Basophils # (auto) 0 10 ^3/uL (0-0.2); Basophils % (auto) 0.2 % (0.0-2.0); Eosinophils # (auto) 0 10 ^3/uL (0-0.8); Eosinophils % (auto) 0.2 % (0.0-7.0); Hemoglobin 12.2 g/dL (12.2-16.2); Lymphocytes % (auto) 10.4 % (10.0-50.0); Mean Corpuscular Hemoglobin 31.2 pg (28.0-32.0); Mean Corpuscular Hgb Conc. 32.8 g/dL (32.0-36.0); Monocytes # (auto) 0.5 10 ^3/uL (0-1.3); Monocytes % (auto) 5.2 % (0.0-12.0); Neutrophils # (auto) 7.8 10 ^3/uL (1.6-8.6); Platelet Count (auto) 289 10^3/uL (140-450); White Blood Cell 9.2 10^3/uL (4.4-10.8)
--- NOTE | 2024-06-15 11:18 | DVHPN2 ---
Subjective 79-year-old female with a history of kidney cancer status post kidney transplant, hypertension, type 2 diabetes came with a chief complaint of right- sided chest pain and right-sided back pain and was diagnosed with pneumonia She takes rejection medications for her kidney transplant at home including prednisone Takes [place] at home for her pain Changes from previous H/P or p: Changes Eyes: No Pain, No Vision change, No Conjunctivae inflammation, No Eyelid inflammation, No Other, No Redness ENT: No Ear pain, No Ear discharge, No Nose pain, No Nose discharge, No Nose congestion, No Mouth pain, No Mouth swelling, No Throat pain, No Throat swelling, No Other Cardiovascular: No Chest Pain, No Palpitations, No Orthopnea, No Paroxysmal Noc. Dyspnea, No Edema, No Lt Headedness, No Other Respiratory: No Cough, No Dry; Shortness of breath; No SOB with excertion, No Wheezing, No Hemoptysis, No Pleuritic Pain, No Sputum, No Other Gastrointestinal: No Nausea, No Vomiting, No Abdominal Pain, No Diarrhea, No Constipation, No Melena, No Hematochezia, No Other Genitourinary: No Dysuria, No Frequency, No Incontinence, No Hematuria, No Retention, No Other Musculoskeletal: No other, No neck pain, No shoulder pain, No arm pain, No back pain, No hand pain, No leg pain, No foot pain Skin: Rash; No Lesions, No Jaundice, No Bruising; Other (Left upper chest) Objective Vitals Vital Signs Date Time Temp Pulse Resp B/P (MAP) Pulse Ox O2 Delivery O2 Flow Rate FiO2 06/15/24 09:00 97.8 88 16 150/76 (100) 97 97.8 06/14/24 20:00 Room Air* 0 21 Intake/Output Intake and Output 06/15/24 07:00 Intake Total 1371 ml Balance 1371 ml Intake Oral 1271 ml IV Total 100 ml # Voids 11 # Bowel Movements 6 General Appearance: Alert, Oriented X3, Cooperative, No acute distress Lungs: Clear to auscultation, Normal air movement Cardiovascular: Regular rate, Normal S1, Normal S2 Abdomen: Normal bowel sounds, Soft, No tenderness Extremities: No edema Medications Current Medications Medications Dose Ordered Sig/Ben Route Start Time Stop Time Status Last Admin Dose Admin Ondansetron HCl 4 mg Q4HP PRN IV 06/13/24 07:45 06/15/24 05:16 4 MG Enoxaparin Sodium 30 mg DAILY SC 06/13/24 10:00 06/14/24 12:25 30 MG Acetaminophen 650 mg Q6HP PRN PO 06/13/24 07:45 06/14/24 12:38 650 MG Vancomycin HCl 0 ml @ 0 mls/hr UD IV 06/13/24 07:45 Aztreonam 1 gm/ Dextrose 50 ml @ 100 mls/hr Q8H IV 06/13/24 15:00 06/15/24 06:39 100 MLS/HR Diagnostic Test (Pha) 1 strip ACHS 06/13/24 11:30 06/15/24 06:27 1 STRIP Insulin Human Regular ACHS SC 06/13/24 11:30 06/15/24 06:38 2 UNITS Dextrose 50 ml UD PRN IV 06/13/24 07:45 Albuterol 2.5 mg Q6HWA NEB 06/13/24 12:00 06/14/24 11:51 2.5 MG Albuterol 2.5 mg Q2HPRN PRN NEB 06/13/24 07:45 Ipratropium [place] 0.5 mg Q6HWA NEB 06/13/24 12:00 06/14/24 11:51 0.5 MG Ipratropium [place] 0.5 mg Q2HPRN PRN NEB 06/13/24 07:45 Famotidine 20 mg DAILY IV 06/13/24 10:00 06/14/24 12:25 20 MG Vancomycin HCl 100 ml @ 100 mls/hr Q24H IV 06/14/24 06:00 06/15/24 06:25 100 MLS/HR Hydralazine HCl 10 mg Q6HP PRN IV 06/14/24 01:00 06/14/24 08:46 10 MG Ascorbic Acid 250 mg DAILY PO 06/14/24 10:00 06/14/24 12:26 250 MG Atorvastatin Calcium 20 mg HS PO 06/14/24 22:00 06/14/24 22:38 20 MG Docusate Sodium 100 mg BID PO 06/14/24 10:00 06/14/24 22:38 100 MG Insulin Glargine 35 units DAILY SC 06/14/24 10:00 06/14/24 12:27 35 UNITS Losartan Potassium 25 mg DAILY PO 06/14/24 10:00 06/14/24 12:29 25 MG Nifedipine 30 mg PRN PO 06/14/24 07:15 Prednisone 5 mg DAILY PO 06/14/24 10:00 06/14/24 12:25 5 MG Acetaminophen/ Hydrocodone Bitart 1 tab Q6HPRN PO 06/14/24 08:00 06/15/24 08:41 1 TAB Tacrolimus 2 mg BID PO 06/14/24 22:00 06/15/24 08:41 2 MG Laboratory Results Laboratory Tests 06/14/24 11:00 06/15/24 10:23 Microbiology Microbiology Date/Time Source Procedure Growth Status 06/13/24 04:05 Blood Blood Culture - Preliminary NO GROWTH AFTER 48 HOURS OF INCUBATION. Resulted Assessment/Plan Assessment/Plan Community acquired pneumonia, Gram-negative versus Gram-positive Two diabetes Hypertension Chronic kidney disease, status post kidney transplant Plan IV antibiotics vancomycin and aztreonam Oxygen as needed Med neb treatments as needed Resume the home medications including rejection medications [place] p.r.n. for pain control Full code Continue sliding scale insulin Continue Lantus insulin Discontinue Solu-Medrol to help with her hyperglycemia 06/15/2024: Continue IV antibiotics Left upper chest wall lesion with multiple nodules: Rule out skin cancer and possibly underlying infection with cellulitis: The patient has a dermatology appointment as an outpatient for biopsy Continue IV antibiotics for the cellulitis and pneumonia Dr. Marcello Peñaloza was consulted, he recommended conservative treatment for now Type 2 diabetes: Better controlled Oxygen as needed Med neb treatments as needed Pain control with [place] Full code Plan discussed with: Patient My Orders Orders - YAMILETH LOPEZ MD Procedure Category Date Status Time Apply: ABI 06/14/24 In Process 11:26 Apply Barrier Cream ABI 06/14/24 In Process 11:26 * Surgical Consult CONS 06/15/24 Transmitted Date of Service: Jun 15, 2024 Billing Provider: YAMILETH LOPEZ MD Common Visit Codes: NOT BILLABLE YAMILETH LOPEZ MD Jun 15, 2024 11:18
[2024-06-15] MEDS: METOCLOPRAMIDE HCL 5MG/ml INJ 2ml VIAL IV PRN (21:25)
[2024-06-15] MEDS: MORPHINE SULFATE INJ 2 MG/ml SYRG IV ONE (21:26)
[2024-06-16] VITALS (9 sets, daily range): BP systolic 134–158; BP diastolic 66–85; PULSE 18–101; RESP 16–18; TEMP 97.3–98.5; O2SAT 94–99
[2024-06-16 09:50] LABS: Basophils # (auto) 0 10 ^3/uL (0-0.2); Basophils % (auto) 0.4 % (0.0-2.0); Eosinophils # (auto) 0 10 ^3/uL (0-0.8); Eosinophils % (auto) 0.4 % (0.0-7.0); Hematocrit 39.7 % (36.0-46.0); Hemoglobin 12.8 g/dL (12.2-16.2); Lymphocytes % (auto) 13.3 % (10.0-50.0); Mean Corpuscular Hemoglobin 30.6 pg (28.0-32.0); Mean Corpuscular Hgb Conc. 32.3 g/dL (32.0-36.0); Mean Corpuscular Volume 94.5 fL (80.0-100.0); Monocytes # (auto) 0.5 10 ^3/uL (0-1.3); Monocytes % (auto) 6.7 % (0.0-12.0); Neutrophils # (auto) 5.7 10 ^3/uL (1.6-8.6); Neutrophils % (auto) 79.2 % (37.0-80.0); Nucleated Red Blood Cells % 0.1 %; Platelet Count (auto) 282 10^3/uL (140-450); Red Cell Distribution Width 15.1 % (11.8-14.3); White Blood Cell 7.3 10^3/uL (4.4-10.8)
[2024-06-16 09:54] LABS: Alanine Aminotransferase 12 U/L (7-40); Alkaline Phosphatase 86 U/L (46-116); Anion Gap 9 (5-15); BUN/Creatinine Ratio 15.5 (10.0-20.0); Bilirubin, Total 0.3 mg/dL (0.2-1.0); Blood Urea Nitrogen 22 mg/dL (9-23); Carbon Dioxide 22 mmol/L (20-31); Magnesium 2.2 mg/dL (1.6-2.6); Potassium 4.4 mmol/L (3.5-5.1); Sodium 139 mmol/L (136-145)
[2024-06-16 09:56] LABS: Aspartate Aminotransferase 11 U/L (13-40); Chloride 108 mmol/L (98-107); Glucose 243 mg/dL (74-106); Total Protein 5.6 g/dL (5.7-8.2)
[2024-06-16] MEDS ORDERED: DOXY1CAP57 PO (11:10)
--- NOTE | 2024-06-16 11:13 | DVHDS2 ---
Discharge Summary Date of Admission Jun 13, 2024 at 07:33 Date of Discharge: Jun 16, 2024 Labs/Diagnostic Data: Laboratory Results Test 06/16/24 09:16 06/16/24 05:47 06/13/24 07:00 06/13/24 04:05 White Blood Count 7.3 10^3/uL (4.4-10.8) Red Blood Count 4.20 10^6/uL (4.0-5.20) Hemoglobin 12.8 g/dL (12.2-16.2) Hematocrit 39.7 % (36.0-46.0) Mean Corpuscular Volume 94.5 fL (80.0-100.0) Mean Corpuscular Hemoglobin 30.6 pg (28.0-32.0) Mean Corpuscular Hemoglobin Concent 32.3 g/dL (32.0-36.0) Red Cell Distribution Width 15.1 % (11.8-14.3) Platelet Count 282 10^3/uL (140-450) Mean Platelet Volume 7.5 fL (6.9-10.8) Neutrophils (%) (Auto) 79.2 % (37.0-80.0) Lymphocytes (%) (Auto) 13.3 % (10.0-50.0) Monocytes (%) (Auto) 6.7 % (0.0-12.0) Eosinophils (%) (Auto) 0.4 % (0.0-7.0) Basophils (%) (Auto) 0.4 % (0.0-2.0) Neutrophils # (Auto) 5.7 10 ^3/uL (1.6-8.6) Lymphocytes # (Auto) 1.0 10 ^3/uL (0.4-5.4) Monocytes # (Auto) 0.5 10 ^3/uL (0-1.3) Eosinophils # (Auto) 0 10 ^3/uL (0-0.8) Basophils # (Auto) 0 10 ^3/uL (0-0.2) Nucleated Red Blood Cells 0.1 % Sodium Level 139 mmol/L (136-145) Potassium Level 4.4 mmol/L (3.5-5.1) Chloride Level 108 mmol/L (98-107) Carbon Dioxide Level 22 mmol/L (20-31) Anion Gap 9 (5-15) Blood Urea Nitrogen 22 mg/dL (9-23) Creatinine 1.42 mg/dL (0.550-1.02) Glomerular Filtration Rate Calc 38 mL/min (>90) BUN/Creatinine Ratio 15.5 (10.0-20.0) Serum Glucose 243 mg/dL (74-106) Calcium Level 10.0 mg/dL (8.7-10.4) Magnesium Level 2.2 mg/dL (1.6-2.6) Total Bilirubin 0.3 mg/dL (0.2-1.0) Aspartate Amino Transferase (AST) 11 U/L (13-40) Alanine Aminotransferase (ALT) 12 U/L (7-40) Alkaline Phosphatase 86 U/L (46-116) Total Protein 5.6 g/dL (5.7-8.2) Albumin 4.0 g/dL (3.2-4.8) Vancomycin Level Trough 13.1 ug/mL (5-10) POC Glucose 86 mg/dl (70-106) Troponin I High Sensitivity 32 ng/L (</=34) Hemoglobin A1c 7.4 % A1C (<5.7) Lactic Acid Level 0.9 mmol/L (0.4-2.0) B-Type Natriuretic Peptide 26.63 pg/mL (0-100) Other Laboratory Tests 06/16/24 09:16 Brief Hx & Hospital Course: Final diagnoses: Community acquired pneumonia, Gram-negative versus Gram-positive Type Two diabetes Hypertension Chronic kidney disease, status post kidney transplant She was admitted for pneumonia which cause her to have pain in the right chest area She was given IV antibiotics She also had pain in her anterior left chest area where she had prior surgery for it by Dr. Peñaloza, he saw the patient here recommended outpatient follow up. She has a follow up with Dermatology for a biopsy to rule out skin cancer Overall she improved and she is stable for discharge now, she will be discharged home on doxycycline for 10 days in addition to her regular home medications Follow up as an outpatient as soon as possible Condition at Discharge: Stable Final Diagnosis/Problems List Community acquired pneumonia, Gram-negative versus Gram-positive Two diabetes Hypertension Chronic kidney disease, status post kidney transplant Discharge Disposition: Home SNF Discharge Will this Physician continue t: No Discharge Statement: "Patient was advised to return to the ER or call 911 if any headaches, dizziness, shortness of breath, chest pain, abdominal pain, bleeding, fevers, or worsening of medical condition. Patient was counseled about treatment plan, medications, possible side effects, patientverbalized understanding. All questions were answered to the best of my ability. This discharge took greater then 30 minutes in planning, reviewing documentation, counseling the patient, and discussing with other team members." ASSESSMENT ASSESSMENT Assessment Date of Service: Jun 16, 2024 Billing Provider: YAMILETH LOPEZ MD Common Visit Codes: NOT BILLABLE YAMILETH LOPEZ MD Jun 16, 2024 11:13
== END 2024-06-16 15:40 | disposition home or self-care (01) | DRG 871 ==
LOC: ER 03:31 → EDBD 03:31 → OVERFLOW 07:33 → EAST 15:25
PROVIDERS: ADMIT Internal Medicine Geriatric Medicine; ATTEND Internal Medicine Geriatric Medicine
DX: A41.50 Gram-negative sepsis, unspecified (principal); E11.00 Type 2 diabetes mellitus with hyperosmolarity without nonketotic hyperglycemic-hyperosmolar coma (NKHHC); J15.69 Pneumonia due to other Gram-negative bacteria; G93.41 Metabolic encephalopathy; J15.9 Unspecified bacterial pneumonia; N17.9 Acute kidney failure, unspecified; C90.00 Multiple myeloma not having achieved remission; T86.12 Kidney transplant failure; Y83.0 Surgical operation with transplant of whole organ as the cause of abnormal reaction of the patient, or of later complication, without mention of misadventure at the time of the procedure; I12.9 Hypertensive chronic kidney disease with stage 1 through stage 4 chronic kidney disease, or unspecified chronic kidney disease; E11.22 Type 2 diabetes mellitus with diabetic chronic kidney disease; N18.9 Chronic kidney disease, unspecified; Z88.0 Allergy status to penicillin; Z88.1 Allergy status to other antibiotic agents; Z88.2 Allergy status to sulfonamides; Z88.8 Allergy status to other drugs, medicaments and biological substances; Z91.041 Radiographic dye allergy status; Z79.899 Other long term (current) drug therapy; Z85.828 Personal history of other malignant neoplasm of skin; Z83.3 Family history of diabetes mellitus; Z82.49 Family history of ischemic heart disease and other diseases of the circulatory system; Z82.3 Family history of stroke; Z87.01 Personal history of pneumonia (recurrent); Z85.528 Personal history of other malignant neoplasm of kidney; Y92.89 Other specified places as the place of occurrence of the external cause
CPT/HCPCS: 36415; 70450; 71045; 80053; 80202; 82565; 82962; 83036; 83605; 83735; 83880; 84484; 85025; 87040; 87081; 94640; 96361; 96365; 96372; 96375; G0378; J1815; J2405; J3490; J7060; J7507

== ENCOUNTER 2024-06-24 12:18 | Inpatient (IN) | payer OTHER ==
[~2024-06-24] VITALS: Ht 160 cm; Wt 64.0 kg
[~2024-06-24 12:18] MED LIST: ALBU2TAB11 PO; ALBUAER3 IN; ASCO500T11 PO; ASPI325T6 PO; ATOR20TA50 PO; DARA1SOL2 SC; DEXA4TAB PO; DICL75TA3 PO; DOCU-94 PO; DOXY1CAP57 PO; FLUT1SPR5; HYDR-4798 PO; INSLANTI SC; IPRA0.03 IN; LOS25T; METH-1286 PO; NIFE1TAB31 PO; PANT40T; POLY335015 PO; PRE5T; PREG100C66 PO; SODI650T PO; TACR1CAP4 PO; ZINC220C8 PO
[2024-06-24 12:40] VITALS: PULSE 101; RESP 20; O2SAT 94
--- NOTE | 2024-06-24 12:47 | ED.PDOC ---
History of Present Illness HPI Comments 79-year-old female with PMHx Skin Cancer brought in by EMS presents with a chief complaint of chest pain. Patient states that she was just discharged from this facility on 06/16/2024 with right-sided pneumonia. Patient mentions that since being discharged she has not been feeling better and now has right sided chest discomfort. Patient reports that she has been taking Doxycycline since being discharged from the hospital. No other symptoms or modifying factors present at this time. Chief Complaint: Abdominal Pain Time Seen by MD: 12:31 Primary Care Provider: WANDA Reviewed Notes: Medications, Allergies Allergies: Coded Allergies: Iodine (Verified Allergy, Unknown, 06/13/24) Levofloxacin (Verified Allergy, Unknown, 06/13/24) Penicillins (Verified Allergy, Unknown, 06/13/24) Sulfa Antibiotics (Verified Allergy, Unknown, 06/13/24) Home Meds Active Scripts Doxycycline Monohydrate (Doxycycline Monohydrate) 100 Mg Cap, 1 CAP PO BID, #20 CAP Prov:YAMILETH LOPEZ MD 06/16/24 Reported Medications Ipratropium [place] (Ipratropium [place]) 0.03 % Spr, 3 MG IN, SPRAY 06/13/24 Albuterol Sulfate (VENTOLIN MDI) 90 Mcg Ih, 0.5 MG IN, INH 06/13/24 Ascorbic Acid (VITAMIN C TABLET) 500 Mg Tb, 250 MG PO DAILY, TAB 06/13/24 Methenamine Hippurate (Hiprex) 1 Gm Tab, 1 GM PO BID, TAB 06/13/24 Joqqbiluhpf-Qpowaogocrtfn-Octq (Darzalex Faspro 1800-10156 mg-Ut/15Ml) 1 Capri Capri, 1 CAPRI SC for CHEMO, ML 06/13/24 Diclofenac Sodium (Diclofenac Sodium Dr) 75 Mg Tab, 2 GM PO PRN, TAB 06/13/24 Hydrocodone-Acetaminophen (Hydrocodone Bitartrate/AC 10-325 mg) 1 Tab Tab, 1 TAB PO PRN, TAB 06/13/24 Fluticasone Propionate (Nasal) (Flonase Allergy Relief) 50 Mcg/Act Spr, 50 MG PRN, SPRAY 06/13/24 Albuterol Sulfate (Albuterol Sulfate) 2 Mg Tab, 90 MG PO PRN, MG 06/13/24 Dexamethasone (Dexamethasone) 4 Mg Tab, 40 MG PO QWEEKLY for ONLY ON NON CHEMO WEEKS, MG 06/13/24 Polyethylene Glycol 3350 (Miralax) 17 Gm Pow, 17 GM PO PRN, POW 06/13/24 Insulin Glargine (Lantus) 100 Unit/Ml Inj, 35 UNIT SC DAILY, INJ 06/13/24 Zinc Sulfate (Zinc Sulfate) 220 Mg Cap, 50 MG PO DAILY for 30 Days, MG 06/13/24 Docusate Sodium (Colace) 100 Mg Cap, 100 MG PO BID, CAP 06/13/24 Aspirin (Aspirin) 325 Mg Tab, 81 MG PO DAILY for 30 Days, MG 06/13/24 Nifedipine (Nifedipine Er) 30 Mg Tab, 30 MG PO PRN, TAB 06/13/24 Losartan Potassium (Losartan Potassium) 25 Mg Tab, 1 DAILY 06/13/24 Pantoprazole Sodium Sesquihydr (Pantoprazole Sodium) 40 Mg Tab, 1 DAILY 06/13/24 Sodium Bicarbonate (Sodium Bicarbonate) 650 Mg Tab, 1 TAB PO BID 06/13/24 Prednisone (Prednisone) 5 Mg Tab, 1 DAILY 06/13/24 Tacrolimus (Tacrolimus) 1 Mg Cap, 1 MG PO BID 06/13/24 Atorvastatin Calcium (ATORVASTATIN CALCIUM) 20 Mg Tab, 1 TAB PO HS 06/13/24 Pregabalin (Pregabalin) 100 Mg Cap, 75 MG PO BID 06/13/24 Information Source: Patient, Emergency Med Personnel Mode of Arrival: EMS Severity: Moderate Timing: Days Duration: Since onset Prehospital treatment: None Past Medical History PAST MEDICAL HISTORY: Cancer, DM, HTN, UTI'S Surgical History: Unknown ROTARY DRILL OPERATOR HELPER History: No Pertinent ROTARY DRILL OPERATOR HELPER History Family History Family History: Unknown Social History Smoker: Non-Smoker Alcohol: Denies ETOH Use Drugs: Denies Drug Use Lives In: Home Constitutional: denies: chills, diaphoresis, fatigue, fever, malaise, sweats, weakness, others EENTM: denies: blurred vision, double vision, ear bleeding, ear discharge, ear drainage, ear pain, ear ringing, eye pain, eye redness, hearing loss, mouth pain, mouth swelling, nasal discharge, nose bleeding, nose congestion, nose pain, photophobia, tearing, throat pain, throat swelling, voice changes, others Respiratory: denies: cough, hemoptysis, orthopnea, SOB at rest, shortness of breath, SOB with excertion, stridor, wheezing, others Cardiovascular: reports: chest pain; denies: dizzy spells, diaphoresis, Dyspnea on exertion, edema, irregular heart beat, left arm pain, lightheadedness, palpitations, PND, syncope, others Gastrointestinal: denies: abdomen distended, abdominal pain, blood streaked bowels, constipated, diarrhea, dysphagia, difficulty swallowing, hematemesis, melena, nausea, poor appetite, poor fluid intake, rectal bleeding, rectal pain, vomiting, others Genitourinary: denies: abnormal vagina bleeding, burning, dyspareunia, dysuria, flank pain, frequency, hematuria, incontinence, pain, , vagina di scharge, urgency, others Neurological: denies: dizziness, fainting, headache, left sided numbness, left sided weakness, numbness, paresthesia, pre-existing deficit, right sided numbness, right sided weakness, seizure, speech problems, tingling, tremors, weakness, others Musculoskeletal: denies: back pain, gout, joint pain, joint swelling, muscle pain, muscle stiffness, neck pain, others Integumetry: denies: bruises, change in color, change in hair/nails, dryness, laceration, lesions, lumps, rash, wounds, others Allergic/Immunocompromised: denies: Difficulty Healing, Frequent Infections, Hives, Itching, others Hematologic/Lymphatic: denies: anemia, blood clots, easy bleeding, easy bruising, swollen glands, others Endocrine: denies: excessive hunger, excessive sweating, excessive thirst, excessive urination, flushing, intolerance to cold, intolerance to heat, unexplained weight gain, unexplained weight loss, others Psychiatric: denies: anxiety, bipolar disorder, depression, hopeless, panic disorder, schizophrenia, sleepless, suicidal, others All Other Systems: Reviewed and Negative Physical Exam General Appearance: Mild Distress, Normal HEENT: Normal ENT Inspection, Pharynx Normal, TMs Normal Neck: Full Range of Motion, Non-Tender, Normal, Normal Inspection Respiratory: Chest Non-Tender, Lungs Clear, No Accessory Muscle Use, No Respiratory Distress, Normal Breath Sounds Cardiovascular: No Edema, No JVD, No Murmur, No Gallop, Normal Peripheral Pulses, Regular Rate/Rhythm Breast Exam: Deferred Gastrointestinal: No Organomegaly, Non Tender, No Pulsatile Mass, Normal Bowel Sounds, Soft Genitalia: Deferred Pelvic: Deferred Rectal: Deferred Extremities: No calf tenderness, Normal capillary refill, Normal inspection, Normal range of motion, Non-tender, No pedal edema Musculoskeletal : Apperance: Normal Neurologic: Alert, supervisor dental laboratory II-XII nml as Tested, No Motor Deficits, Normal Affect, Normal Mood, No Sensory Deficits Cerebellar Function: Normal Reflexes: Normal Skin: Dry, Normal Color, Warm Lymphatic: No Adenopathy Was a procedure done? Was a procedure done?: No Differential Dx Considerations may include: ACS, CVA, viral syndrome, pneumonia, UTI X-Ray, Labs, Meds, VS Vital Signs Date Time Temp Pulse Resp B/P (MAP) Pulse Ox O2 Delivery O2 Flow Rate FiO2 06/24/24 14:25 110 16 162/70 06/24/24 14:00 101 20 162/70 (100) 100 06/24/24 13:30 102 06/24/24 13:30 111 18 162/70 06/24/24 12:40 97.5 101 20 171/79 (109) 94 97.5 06/24/24 12:40 101 20 94 Room Air* 0 21 06/24/24 12:25 97.5 109 25 164/84 (110) 96 06/24/24 12:23 105 Lab Test 06/24/24 15:07 06/24/24 13:47 Range/Units Troponin I High Sensitivity 6 6 </=34 ng/L White Blood Count 11.2 H 4.4-10.8 10^3/uL Red Blood Count 4.12 4.0-5.20 10^6/uL Hemoglobin 12.7 12.2-16.2 g/dL Hematocrit 38.5 36.0-46.0 % Mean Corpuscular Volume 93.5 80.0-100.0 fL Mean Corpuscular Hemoglobin 30.7 28.0-32.0 pg Mean Corpuscular Hemoglobin Concent 32.9 32.0-36.0 g/dL Red Cell Distribution Width 15.2 H 11.8-14.3 % Platelet Count 402 140-450 10^3/uL Mean Platelet Volume 7.4 6.9-10.8 fL Neutrophils (%) (Auto) 90.0 H 37.0-80.0 % Lymphocytes (%) (Auto) 5.0 L 10.0-50.0 % Monocytes (%) (Auto) 4.7 0.0-12.0 % Eosinophils (%) (Auto) 0.1 0.0-7.0 % Basophils (%) (Auto) 0.2 0.0-2.0 % Neutrophils # (Auto) 10.1 H 1.6-8.6 10 ^3/uL Lymphocytes # (Auto) 0.6 0.4-5.4 10 ^3/uL Monocytes # (Auto) 0.5 0-1.3 10 ^3/uL Eosinophils # (Auto) 0 0-0.8 10 ^3/uL Basophils # (Auto) 0 0-0.2 10 ^3/uL Nucleated Red Blood Cells 0.0 % Sodium Level Pending Potassium Level Pending Chloride Level Pending Carbon Dioxide Level Pending Anion Gap Pending Blood Urea Nitrogen Pending Creatinine Pending Glomerular Filtration Rate Calc Pending BUN/Creatinine Ratio Pending Serum Glucose Pending Calcium Level Pending Current Medications Medications (Trade) Dose Ordered Sig/Ben Route Start Time Stop Time Status Last Admin Morphine Sulfate 4 mg ONCE ONCE IV 06/24/24 13:30 06/24/24 14:19 DC 06/24/24 13:30 Sodium Chloride 1,000 ml @ 1,000 mls/hr Q1H ONCE IV 06/24/24 13:30 06/24/24 14:29 DC 06/24/24 13:30 Ondansetron HCl (Zofran) 4 mg ONCE ONCE IV 06/24/24 13:30 06/24/24 14:19 DC 06/24/24 14:24 Time of 1ST Reevaluation: 13:01 Reevaluation 1ST: Unchanged Patient Education/Counseling: Diagnosis, Treatment, Prognosis Family Education/Counseling: Diagnosis, Treatment, Prognosis Departure 1 Departure Time of Disposition: 16:34 (Patient presented with acute shortness of breath concerning for acute on chronic COPD Exacerbation, Pneumonia, ACS, CHF, Pneumothorax. Less likely PE, Dissection. Patient does not appear septic at this time.Data: 1. I ordered and reviewed the result of at least 3 labs including a CBC, BMP, and Troponin. 2. I independently interpreted the following tests: Chest X-ray shows a pneumonia.Risk:This patient has a high risk of morbidity due to further diagnostic testing or treatment and may suffer from respiratory or cardiac etiology . Workup reveals a pneumonia, patient will be started on antibiotics, admitted for further workup and possible expert consultation.Patient is likely not septic but we will empirically cover patient with antibiotics.) Impression: Primary Impression: Multifocal pneumonia Additional Impressions: Acute chest pain Shortness of breath Disposition: ADMITTED INPATIENT Admit to: Med Surg Condition: Serious Critical Care Note Critical Care Time?: No Stability Stability form required: No Heart Score Heart Score: Heart Score Response (Comments) Value History N/A 0 EKG N/A 0 Age N/A 0 Risk Factors N/A 0 Troponin N/A 0 Total 0 I personally scribed for KECIA GARCIA MD ([email or web address]) on 06/24/24 at 12:47. Electronically submitted by Sha Limon ([email or web address]). KECIA GARCIA MD Jun 24, 2024 12:47
[2024-06-24] MEDS: SODIUM CHLORIDE 0.9% 1,000 ML IV ONE ×2 (13:30→16:44)
[2024-06-24] MEDS: MORPHINE SULFATE 4 MG/ML SYR/VIAL IV ONE ×3 (13:30→19:11)
[2024-06-24 14:16] LABS: Basophils # (auto) 0 10 ^3/uL (0-0.2); Basophils % (auto) 0.2 % (0.0-2.0); Eosinophils # (auto) 0 10 ^3/uL (0-0.8); Eosinophils % (auto) 0.1 % (0.0-7.0); Hematocrit 38.5 % (36.0-46.0); Hemoglobin 12.7 g/dL (12.2-16.2); Lymphocytes # (auto) 0.6 10 ^3/uL (0.4-5.4); Mean Corpuscular Hemoglobin 30.7 pg (28.0-32.0); Mean Corpuscular Hgb Conc. 32.9 g/dL (32.0-36.0); Mean Corpuscular Volume 93.5 fL (80.0-100.0); Monocytes # (auto) 0.5 10 ^3/uL (0-1.3); Monocytes % (auto) 4.7 % (0.0-12.0); Neutrophils # (auto) 10.1 10 ^3/uL (1.6-8.6); Platelet Count (auto) 402 10^3/uL (140-450); Red Blood Cells 4.12 10^6/uL (4.0-5.20); Red Cell Distribution Width 15.2 % (11.8-14.3); White Blood Cell 11.2 10^3/uL (4.4-10.8)
[2024-06-24] MEDS: MORPHINE SULFATE 4 MG/ML SYR/VIAL ONE (14:23)
[2024-06-24] MEDS: ONDANSETRON HCL 4 MG/2 ML VIAL IV ONE (14:24)
--- NOTE | 2024-06-24 15:01 | DVH ---
EXAM: XY CHEST PORTABLE Indication: weakness Technique: Single frontal view of the chest was obtained Comparison: XY CHEST PORTABLE on DOS: 06/13/24 FINDINGS: Lines and Tubes: None Lungs: Multifocal right lung consolidative opacity. Pleura: Small right pleural effusion. No pneumothorax. Cardiomediastinal contours: Unremarkable Bones: No acute osseous abnormality. IMPRESSION: Multifocal right lung consolidative opacity and small right pleural effusion.
--- NOTE | 2024-06-24 15:12 | DVH ---
EXAM: CT Abdomen and Pelvis Without Intravenous Contrast CLINICAL INDICATION: right flank pain TECHNIQUE: Axial computed tomography images of the abdomen and pelvis without intravenous contrast. This CT exam was performed using one or more of the following dose reduction techniques: automated exposure control, adjustment of the mA and/or kV according to patient size, and/or use of iterative r econstruction technique. CONTRAST: RADIATION DOSE: CTDIvol = 12.08 mGy, DLP = 614.11 mGy-cm COMPARISON: None FINDINGS: LUNG BASES: See below. PLEURAL SPACE: Right pleural effusion with compressive atelectasis. MEDIASTINUM: Small hiatal hernia. ABDOMEN: LIVER: Hepatomegaly with fatty infiltration. GALLBLADDER AND BILE DUCTS: Cholelithiasis. No ductal dilation. PANCREAS: Unremarkable. No ductal dilation. SPLEEN: Unremarkable. No splenomegaly. ADRENALS: Unremarkable. No mass. KIDNEYS AND URETERS: Transplant kidney in the right lower abdominal quadrant. Bilateral atrophic k idneys. No stones within either kidney. No hydronephrosis. STOMACH AND BOWEL: Fecal retention in the colon consistent with constipation. Colonic diverticulos is without acute diverticulitis. No obstruction. PELVIS: APPENDIX: No findings to suggest acute appendicitis. BLADDER: Unremarkable. No stones. REPRODUCTIVE: Unremarkable as visualized. ABDOMEN and PELVIS: INTRAPERITONEAL SPACE: Unremarkable. No free air. No significant fluid collection. BONES/JOINTS: No acute fracture. No dislocation. SOFT TISSUES: Unremarkable. VASCULATURE: Scattered calcified atherosclerotic disease of aorta. No abdominal aortic aneurysm. LYMPH NODES: Unremarkable. No enlarged lymph nodes. OTHER FINDINGS: . . IMPRESSION: 1. Hepatomegaly with fatty infiltration. 2. Cholelithiasis. 3. No obstructive uropathy. 4. Fecal retention in the colon consistent with constipation. 5. Colonic diverticulosis without acute diverticulitis. Degenerative lumbar
[2024-06-24] MEDS: AZTREONAM 1GM INJ 2 GM in D5W 5% 50 ML IV ONE (16:30)
[2024-06-24] MEDS: VANCOMYCIN 1GM/250ML KIT 200 ML IV ONE (17:30)
[2024-06-24] MEDS: AZITHROMYCIN 250 MG TAB PO ONE (18:35)
[2024-06-24] MEDS ORDERED: ALBUTEROL SULF 2.5 MG/0.5ML(0.5%) NEB SOLN NEB PRN (19:00)
[2024-06-24] MEDS ORDERED: DEXTROSE (50%) 50ML SYRG IV PRN (19:00)
[2024-06-24] MEDS ORDERED: VANCOMYCIN PER PHARMACY 0 MG IV SCH (19:00)
[2024-06-24] MEDS ORDERED: ONDANSETRON HCL 4 MG/2 ML VIAL IV PRN (19:00)
[2024-06-24 19:30] VITALS: PULSE 106; RESP 20; O2SAT 92
[2024-06-24 19:51] LABS: Anion Gap 9 (5-15)
[2024-06-24 19:52] LABS: Calcium 9.4 mg/dL (8.7-10.4); Carbon Dioxide 20 mmol/L (20-31); Chloride 106 mmol/L (98-107); Potassium 5.4 mmol/L (3.5-5.1); Sodium 135 mmol/L (136-145)
[2024-06-24 19:59] LABS: Blood Urea Nitrogen 25 mg/dL (9-23); Glucose 278 mg/dL (74-106)
--- NOTE | 2024-06-24 20:50 | DVHHP2 ---
History of Present Illness Reason for Visit: Shortness for breath History of Present Illness 79-year-old female presents for evaluation of shortness for breath. Patient is somewhat confused. She is lethargic and oriented x2. Per ED records personnel patient presented for shortness for breath that has been ongoing since she was discharged from this institution last week. She states having a nonproductive cough. Noted patient to have a skin lesion on her left upper chest, she states she is being followed by Dermatology as an outpatient for treatment. Reports intermittent chills. No other acute complaints. Past Medical History Diabetes mellitus, skin cancer, hypertension, UTIs Past Surgical History Kidney transplant Family History Noncontributory Smoke: No ALCOHOL: none Drugs: None Lives: with Family Review of Systems Review of Systems Review of systems are currently negative otherwise addressed in HPI Allergies: Coded Allergies: Iodine (Verified Allergy, Unknown, 06/13/24) Levofloxacin (Verified Allergy, Unknown, 06/13/24) Penicillins (Verified Allergy, Unknown, 06/13/24) Sulfa Antibiotics (Verified Allergy, Unknown, 06/13/24) Medications Current Medications Medications Dose Ordered Sig/Ben Route Start Time Stop Time Status Last Admin Dose Admin Vancomycin HCl 0 ml @ 0 mls/hr UD IV 06/24/24 19:00 Aztreonam 2 gm/ Dextrose 50 ml @ 100 mls/hr Q12HR IV 06/24/24 22:00 Losartan Potassium 25 mg DAILY PO 06/25/24 10:00 Tacrolimus 2 mg BIDAC PO 06/25/24 07:00 Prednisone 5 mg DAILY PO 06/25/24 10:00 Nifedipine 30 mg DAILY PO 06/25/24 10:00 Atorvastatin Calcium 20 mg HS PO 06/24/24 22:00 Albuterol 2.5 mg Q6HPRN PRN NEB 06/24/24 19:00 Diagnostic Test (Pha) 1 strip ACHS 06/24/24 22:00 Insulin Human Regular HS SC 06/24/24 22:00 Insulin Human Regular AC SC 06/25/24 07:00 Dextrose 50 ml UD PRN IV 06/24/24 19:00 Ondansetron HCl 4 mg Q4HP PRN IV 06/24/24 19:00 Enoxaparin Sodium 40 mg DAILY SC 06/25/24 10:00 Acetaminophen 650 mg Q6HP PRN PO 06/24/24 19:00 Exam Vital Signs Vital Signs Date Time Temp Pulse Resp B/P (MAP) Pulse Ox O2 Delivery O2 Flow Rate FiO2 06/24/24 19:11 103 18 183/31 06/24/24 17:00 98 06/24/24 12:40 97.5 97.5 06/24/24 12:40 Room Air* 0 21 Exam Gen: 79-year-old female in mild distress Skin: Warm, dry, normal color and texture, in lesion to left upper chest HEENT: Normocephalic atraumatic, mucous membranes moist and pink. Neck: Cervical and supraclavicular nodes normal without enlargement, trachea is midline, thyroid gland is normal without masses. Pulmonary: Clear to auscultation and percussion bilaterally. Cardiac: Regular rate and rhythm. No murmur Abdomen: Soft, nontender, nondistended, bowel sounds present all 4 quadrants, no guarding, no rigidity, no organomegaly. Extremities: No cyanosis, clubbing, no edema Neuro: Lethargic, no focal deficits Labs/Xrays ORDERING PHYSICIAN: KECIA GARCIA MD PROCEDURE(s): ABPL - CT AB PEL WO CON-NO ORAL OR IV REASON: right flank pain ORDER NUMBER(s): [id number], ACCESSION NUMBER(s): [id number] EXAM: CT Abdomen and Pelvis Without Intravenous Contrast CLINICAL INDICATION: right flank pain TECHNIQUE: Axial computed tomography images of the abdomen and pelvis without intravenous contrast. This CT exam was performed using one or more of the following dose reduction techniques: automated exposure control, adjustment of the mA and/or kV according to patient size, and/or use of iterative reconstruction technique. CONTRAST: RADIATION DOSE: CTDIvol = 12.08 mGy, DLP = 614.11 mGy-cm COMPARISON: None FINDINGS: LUNG BASES: See below. PLEURAL SPACE: Right pleural effusion with compressive atelectasis. MEDIASTINUM: Small hiatal hernia. ABDOMEN: LIVER: Hepatomegaly with fatty infiltration. GALLBLADDER AND BILE DUCTS: Cholelithiasis. No ductal dilation. PANCREAS: Unremarkable. No ductal dilation. SPLEEN: Unremarkable. No splenomegaly. ADRENALS: Unremarkable. No mass. KIDNEYS AND URETERS: Transplant kidney in the right lower abdominal quadrant. Bilateral atrophic kidneys. No stones within either kidney. No hydronephrosis. STOMACH AND BOWEL: Fecal retention in the colon consistent with constipation. Colonic diverticulosis without acute diverticulitis. No obstruction. PELVIS: APPENDIX: No findings to suggest acute appendicitis. BLADDER: Unremarkable. No stones. REPRODUCTIVE: Unremarkable as visualized. ABDOMEN and PELVIS: INTRAPERITONEAL SPACE: Unremarkable. No free air. No significant fluid collection. BONES/JOINTS: No acute fracture. No dislocation. SOFT TISSUES: Unremarkable. VASCULATURE: Scattered calcified atherosclerotic disease of aorta. No abdominal aortic aneurysm. LYMPH NODES: Unremarkable. No enlarged lymph nodes. OTHER FINDINGS: . . IMPRESSION: 1. Hepatomegaly with fatty infiltration. 2. Cholelithiasis. 3. No obstructive uropathy. 4. Fecal retention in the colon consistent with constipation. 5. Colonic diverticulosis without acute diverticulitis. Degenerative lumbar RING PHYSICIAN: KECIA GARCIA MD PROCEDURE(s): CXRP - CHEST PORTABLE REASON: weakness ORDER NUMBER(s): [id number], ACCESSION NUMBER(s): [id number] EXAM: XY CHEST PORTABLE Indication: weakness Technique: Single frontal view of the chest was obtained Comparison: XY CHEST PORTABLE on DOS: 06/13/24 FINDINGS: Lines and Tubes: None Lungs: Multifocal right lung consolidative opacity. Pleura: Small right pleural effusion. No pneumothorax. Cardiomediastinal contours: Unremarkable Bones: No acute osseous abnormality. IMPRESSION: Multifocal right lung consolidative opacity and small right pleural effusion. Labs Test 06/24/24 18:46 06/24/24 13:47 Range/Units Sodium Level 135 L 136-145 mmol/L Potassium Level 5.4 H 3.5-5.1 mmol/L Chloride Level 106 98-107 mmol/L Carbon Dioxide Level 20 20-31 mmol/L Anion Gap 9 5-15 Blood Urea Nitrogen 25 H 9-23 mg/dL Creatinine 1.19 H 0.550-1.02 mg/dL Glomerular Filtration Rate Calc 47 >90 mL/min BUN/Creatinine Ratio 21.0 H 10.0-20.0 Serum Glucose 278 H 74-106 mg/dL Lactic Acid Level 0.9 0.4-2.0 mmol/L Calcium Level 9.4 8.7-10.4 mg/dL Troponin I High Sensitivity 9 </=34 ng/L White Blood Count 11.2 H 4.4-10.8 10^3/uL Red Blood Count 4.12 4.0-5.20 10^6/uL Hemoglobin 12.7 12.2-16.2 g/dL Hematocrit 38.5 36.0-46.0 % Mean Corpuscular Volume 93.5 80.0-100.0 fL Mean Corpuscular Hemoglobin 30.7 28.0-32.0 pg Mean Corpuscular Hemoglobin Concent 32.9 32.0-36.0 g/dL Red Cell Distribution Width 15.2 H 11.8-14.3 % Platelet Count 402 140-450 10^3/uL Mean Platelet Volume 7.4 6.9-10.8 fL Neutrophils (%) (Auto) 90.0 H 37.0-80.0 % Lymphocytes (%) (Auto) 5.0 L 10.0-50.0 % Monocytes (%) (Auto) 4.7 0.0-12.0 % Eosinophils (%) (Auto) 0.1 0.0-7.0 % Basophils (%) (Auto) 0.2 0.0-2.0 % Neutrophils # (Auto) 10.1 H 1.6-8.6 10 ^3/uL Lymphocytes # (Auto) 0.6 0.4-5.4 10 ^3/uL Monocytes # (Auto) 0.5 0-1.3 10 ^3/uL Eosinophils # (Auto) 0 0-0.8 10 ^3/uL Basophils # (Auto) 0 0-0.2 10 ^3/uL Nucleated Red Blood Cells 0.0 % Assessment/Plan Assessment/Plan Assessment Metabolic encephalopathy Multifocal pneumonia Early sepsis Hypertensive crisis Diabetes mellitus Questionable left upper chest malignant skin lesion Plan Admit the patient to Med surge to the hospitalist Aztreonam/vancomycin Resume home medications Prograf level pending Continue treatment per orders. Plan discussed with: Patient My Orders Orders - NEERAJ MEIER Procedure Category Date Status Time Vancomycin Per PHA 06/24/24 In Process Pharmacy 19:00 Aztreonam 1gm Inj PHA 06/24/24 In Process (Azactam) 22:00 Losartan Tablet PHA 06/25/24 In Process (Cozaar Tablet) 10:00 Prednisone Tablet PHA 06/25/24 In Process 10:00 Nifedipine Er PHA 06/25/24 In Process (Procardia Xl 10:00 Atorvastatin (Lipitor) PHA 06/24/24 In Process 22:00 Albuterol Medneb PHA 06/24/24 In Process (Ventolin Medneb) 19:00 B-Type Natriuretic LAB 06/25/24 Verified Peptide 04:00 Glucose Blood PHA 06/24/24 In Process (Accu-Chek Comfort 22:00 Insulin R (Human) PHA 06/24/24 In Process (Insulin R) 22:00 Insulin R (Human) PHA 06/25/24 In Process (Insulin R) 07:00 Dextrose 50% Syringe PHA 06/24/24 In Process 19:00 Admit ADMIT 06/24/24 Transmitted 18:54 Ondansetron Hcl PHA 06/24/24 In Process (Zofran) 19:00 Enoxaparin Sodium PHA 06/25/24 In Process (Lovenox) 10:00 Complete Blood Count LAB 06/25/24 Verified 04:00 Cardiac DIET 06/25/24 Transmitted Diet-2gna,Lofat,Lochol Breakfast Condition: Stable ABI 06/24/24 In Process 18:54 Acetaminophen Tablet PHA 06/24/24 In Process (Tylenol Tablet) 19:00 Bedrest With Bathroom ABI 06/24/24 In Process Privileg 18:54 Tacrolimus (Prograf) PHA 06/25/24 In Process 07:[address] 06/24/24 Transmitted 20:45 Date of Service: Jun 24, 2024 Billing Provider: NEERAJ MEIER Common Visit Codes: [id number] INP/OBS CARE (HIGH) NEERAJ MEIER Jun 24, 2024 20:50
[2024-06-24] MEDS: ATORVASTATIN 20 MG TAB PO SCH (20:53)
[2024-06-24] MEDS: NIFEdipine ER 30 MG TAB PO ONE (20:53)
[2024-06-24] MEDS: predniSONE 5 MG TAB PO ONE (20:53)
[2024-06-24] MEDS: LOSARTAN POTASSIUM 25 MG TAB PO ONE (20:54)
[2024-06-24] MEDS: ACCU-CHEK COMFORT CURVE STRIP VI SCH (22:00)
--- NOTE | 2024-06-24 22:06 | DVH ---
CT STROKE CTH INDICATION: COMPARISON: CT HEAD WITHOUT CONTRAST on DOS: 06/13/24 TECHNIQUE: CT of the head without intravenous contrast. RADIATION DOSE: CTDIvol: mGy, DLP: mGy*cm FINDINGS: There is no evidence of intracranial hemorrhage, infarct, extra-axial collection, mass effect, midli ne shift, herniation or hydrocephalus. The ventricles, sulci and cisterns are normal. The pastrana-whit e differentiation is normal. Visualized paranasal sinuses and mastoid air cells are clear. Soft tissues and osseous structures ar e unremarkable. IMPRESSION: No abnormality demonstrated.
[2024-06-24] MEDS: AZTREONAM 1GM INJ 2 GM in D5W 5% 50 ML IV SCH (22:16)
[2024-06-24 22:45] VITALS: BP 188/76; PULSE 101; RESP 22; TEMP 98.8; O2SAT 95
[2024-06-24] MEDS: InsuLIN REG 1unit/0.01ml Soln (100units/ml) SC SCH (22:47)
[2024-06-25 07:26] VITALS: O2SAT 94
[2024-06-25 07:27] VITALS: O2SAT 94
[2024-06-25] MEDS: InsuLIN REG 1unit/0.01ml Soln (100units/ml) SC SCH (08:00)
[2024-06-25] MEDS: TACROLIMUS 1 MG CAP PO SCH (08:00)
[2024-06-25 09:06] VITALS: RESP 18
[2024-06-25] MEDS: NIFEdipine ER 30 MG TAB PO SCH (10:00)
[2024-06-25] MEDS: ENOXAPARIN SOD 40 MG/0.4 ML SYRINGE SC SCH (10:00)
[2024-06-25] MEDS: predniSONE 5 MG TAB PO SCH (10:00)
[2024-06-25] MEDS: LOSARTAN POTASSIUM 25 MG TAB PO SCH (10:00)
--- NOTE | 2024-06-25 10:09 | ECG ---
[facility] Test Date: 2024-06-24 Test Time: 13:30:56 Pat Name: ANGIE DE LEON Department: ER Room: 0249T Gender: F Undercutter: DYLAN : 1945 Requested By: KECIA GARCIA Order Number: [id number] Reading MD: Prateek Matthew Measurements Intervals [place] Rate: 102 P: 73 IN: 172 QRS: -52 QRSD: 106 T: 79 QT: 364 QTc: 475 Interpretive Statements Sinus tachycardia Probable left atrial enlargement Left anterior fascicular block Left ventricular hypertrophy Anterior Q waves, possibly due to LVH ST elevation, consider inferior injury Baseline wander in lead(s) I Electronically Signed On 06-29-2024 17:07:57 PST by Prateek Matthew Please click the below link to view image of tracing.
--- NOTE | 2024-06-25 10:09 | ECG ---
[facility] Test Date: 2024-06-24 Test Time: 12:23:32 Pat Name: ANGIE DE LEON Department: er Room: 0249T Gender: F Body Maker: kristine : 1945 Requested By: KECIA GARCIA Order Number: [id number] Reading MD: Prateek Matthew Measurements Intervals [place] Rate: 105 P: 72 HI: 180 QRS: -49 QRSD: 104 T: 79 QT: 351 QTc: 465 Interpretive Statements Sinus tachycardia Left ventricular hypertrophy Inferior infarct, old Anterior Q waves, possibly due to LVH Baseline wander in lead(s) V3 Electronically Signed On 06-29-2024 17:06:43 PST by Prateek [email or web address] Please click the below link to view image of tracing.
--- NOTE | 2024-06-25 13:13 | DVHPN2 ---
Subjective 79-year-old female with a history of type 2 diabetes, hypertension, UTI, gallstones comes with chief complaint of shortness of breaths and altered level of consciousness and weakness Chest x-ray shows pneumonia on the right side She is very confused Changes from previous H/P or p: Changes Objective Vitals Vital Signs Date Time Temp Pulse Resp B/P (MAP) Pulse Ox O2 Delivery O2 Flow Rate FiO2 06/25/24 09:06 18 Room Air* 0 N/A Nasal Cannula* 06/25/24 07:27 94 06/25/24 06:00 100 06/25/24 04:00 156/72 (100) 06/24/24 22:45 98.8 98.8 General Appearance: Alert, Other (Disoriented, hallucinating) Extremities: No edema Medications Current Medications Medications Dose Ordered Sig/Ben Route Start Time Stop Time Status Last Admin Dose Admin Vancomycin HCl 0 ml @ 0 mls/hr UD IV 06/24/24 19:00 Aztreonam 2 gm/ Dextrose 50 ml @ 100 mls/hr Q12HR IV 06/24/24 22:00 06/24/24 22:16 100 MLS/HR Losartan Potassium 25 mg DAILY PO 06/25/24 10:00 Tacrolimus 2 mg BIDAC PO 06/25/24 07:00 Prednisone 5 mg DAILY PO 06/25/24 10:00 Nifedipine 30 mg DAILY PO 06/25/24 10:00 Atorvastatin Calcium 20 mg HS PO 06/24/24 22:00 06/24/24 20:53 20 MG Albuterol 2.5 mg Q6HPRN PRN NEB 06/24/24 19:00 Diagnostic Test (Pha) 1 strip ACHS 06/24/24 22:00 06/24/24 22:00 1 STRIP Insulin Human Regular HS SC 06/24/24 22:00 06/24/24 22:47 4 UNITS Insulin Human Regular AC SC 06/25/24 07:00 Dextrose 50 ml UD PRN IV 06/24/24 19:00 Ondansetron HCl 4 mg Q4HP PRN IV 06/24/24 19:00 Enoxaparin Sodium 40 mg DAILY SC 06/25/24 10:00 Acetaminophen 650 mg Q6HP PRN PO 06/24/24 19:00 Vancomycin HCl 250 ml @ 250 mls/hr Q24H IV 06/25/24 16:00 Laboratory Results Laboratory Tests 06/24/24 13:47 06/24/24 18:46 Chemistry Test 06/24/24 18:46 Calcium Level 9.4 mg/dL (8.7-10.4) Assessment/Plan Assessment/Plan Right lower lobe pneumonia Right pleural effusion Acute kidney injury superimposed on chronic kidney disease History of kidney transplant on antirejection medications Hyperkalemia Acute metabolic encephalopathy Sepsis due to pneumonia Hypertension Type 2 diabetes Recurrent UTIs Skin cancer Gallstones Constipation Diverticulosis Hepatomegaly Plan IV antibiotics aztreonam and vancomycin Oxygen as needed Haldol 2.5 mg IM every 8 hours p.r.n. agitation Sitter at the bedside Telemetry Resume antirejection medications including tacrolimus and prednisone Nifedipine for the hypertension Losartan Accu-Cheks for diabetes control Plan discussed with: Patient My Orders Orders - YAMILETH LOPEZ MD Procedure Category Date Status Time Complete Blood Count LAB 06/25/24 Logged 13:00 Comprehensive LAB 06/25/24 Logged Metabolic Panel 13:00 Magnesium LAB 06/25/24 Logged 13:00 Date of Service: Jun 25, 2024 Billing Provider: YAMILETH LOPEZ MD Common Visit Codes: NOT BILLABLE YAMILETH LOPEZ MD Jun 25, 2024 13:13
[2024-06-25] MEDS: HALOPERIDOL LACTATE 5 MG/ML INJ VIAL IM PRN (17:02)
[2024-06-25 18:30] VITALS: O2SAT 95
[2024-06-25] MEDS: VANCOMYCIN 1GM/250mL NS or D5W KIT IV SCH (20:00)
--- NOTE | 2024-06-25 21:57 | DVHINCON2 ---
Date of service: Jun 25, 2024 Referring Physician Eric Claudio MD Reason for Consultation Dyspnea, pleural effusion, pneumonia History of Present Illness A 79-year-old woman with PMHx of diabetes mellitus, skin cancer, hypertension, and UTIs who presented to ED on 06/24/24 for evaluation of shortness of breath. Patient was somewhat confused, lethargic and oriented x2. Per ED records and personnel, patient presented for shortness for breath that had been ongoing since she was discharged from this hospital last week. Patient also c/o nonproductive cough, intermittent chills. No other acute complaints. She has a skin lesion on her left upper chest, being followed by Dermatology as outpatient for treatment. Patient was admitted for further care and pulmonary consultation is requested for evaluation and management due to these findings. Review of Systems: 14-point review of systems negative unless otherwise noted above. Past Medical History: Diabetes mellitus, skin cancer, hypertension, UTIs Past Surgical History: Kidney transplant Medications: Reviewed. Allergies: Iodine Levofloxacin Penicillins Sulfa Antibiotics Family History: Diabetes, [place], stroke. Social History: Nonsmoker. No alcohol or illicit drug use. Family History: Diabetes mellitus G8 MOTHER G8 FATHER FH: heart attack G8 FATHER FH: stroke G8 MOTHER Allergies: Coded Allergies: Iodine (Verified Allergy, Unknown, 06/13/24) Levofloxacin (Verified Allergy, Unknown, 06/13/24) Penicillins (Verified Allergy, Unknown, 06/13/24) Sulfa Antibiotics (Verified Allergy, Unknown, 06/13/24) Home Meds Active Scripts Doxycycline Monohydrate (Doxycycline Monohydrate) 100 Mg Cap, 1 CAP PO BID, #20 CAP Prov:ERIC CLAUDIO MD 06/16/24 Reported Medications Ipratropium Walnut (Ipratropium Walnut) 0.03 % Spr, 3 MG IN, SPRAY 06/13/24 Albuterol Sulfate (VENTOLIN MDI) 90 Mcg Ih, 0.5 MG IN, INH 06/13/24 Ascorbic Acid (VITAMIN C TABLET) 500 Mg Tb, 250 MG PO DAILY, TAB 06/13/24 Methenamine Hippurate (Hiprex) 1 Gm Tab, 1 GM PO BID, TAB 06/13/24 Grwlpimbnft-Bwxthybilgjaq-Myof (Darzalex Faspro 1800-60976 mg-Ut/15Ml) 1 Capri Capri, 1 CAPRI SC for CHEMO, ML 06/13/24 Diclofenac Sodium (Diclofenac Sodium Dr) 75 Mg Tab, 2 GM PO PRN, TAB 06/13/24 Hydrocodone-Acetaminophen (Hydrocodone Bitartrate/AC 10-325 mg) 1 Tab Tab, 1 TAB PO PRN, TAB 06/13/24 Fluticasone Propionate (Nasal) (Flonase Allergy Relief) 50 Mcg/Act Spr, 50 MG PRN, SPRAY 06/13/24 Albuterol Sulfate (Albuterol Sulfate) 2 Mg Tab, 90 MG PO PRN, MG 06/13/24 Dexamethasone (Dexamethasone) 4 Mg Tab, 40 MG PO QWEEKLY for ONLY ON NON CHEMO WEEKS, MG 06/13/24 Polyethylene Glycol 3350 (Miralax) 17 Gm Pow, 17 GM PO PRN, POW 06/13/24 Insulin Glargine (Lantus) 100 Unit/Ml Inj, 35 UNIT SC DAILY, INJ 06/13/24 Zinc Sulfate (Zinc Sulfate) 220 Mg Cap, 50 MG PO DAILY for 30 Days, MG 06/13/24 Docusate Sodium (Colace) 100 Mg Cap, 100 MG PO BID, CAP 06/13/24 Aspirin (Aspirin) 325 Mg Tab, 81 MG PO DAILY for 30 Days, MG 06/13/24 Nifedipine (Nifedipine Er) 30 Mg Tab, 30 MG PO PRN, TAB 06/13/24 Losartan Potassium (Losartan Potassium) 25 Mg Tab, 1 DAILY 06/13/24 Pantoprazole Sodium Sesquihydr (Pantoprazole Sodium) 40 Mg Tab, 1 DAILY 06/13/24 Sodium Bicarbonate (Sodium Bicarbonate) 650 Mg Tab, 1 TAB PO BID 06/13/24 Prednisone (Prednisone) 5 Mg Tab, 1 DAILY 06/13/24 Tacrolimus (Tacrolimus) 1 Mg Cap, 1 MG PO BID 06/13/24 Atorvastatin Calcium (ATORVASTATIN CALCIUM) 20 Mg Tab, 1 TAB PO HS 06/13/24 Pregabalin (Pregabalin) 100 Mg Cap, 75 MG PO BID 06/13/24 Current Medications Current Medications Medications (Trade) Dose Ordered Sig/Ben Route PRN Reason Start Time Stop Time Status Last Admin Aztreonam 2 gm/ Dextrose 50 ml @ 100 mls/hr Q12HR IV 06/24/24 22:00 06/24/24 22:16 Losartan Potassium (Cozaar Tablet) 25 mg DAILY PO 06/25/24 10:00 Tacrolimus (Prograf) 2 mg BIDAC PO 06/25/24 07:00 Prednisone 5 mg DAILY PO 06/25/24 10:00 Nifedipine (Procardia Xl (Time-Release)) 30 mg DAILY PO 06/25/24 10:00 Atorvastatin Calcium (Lipitor) 20 mg HS PO 06/24/24 22:00 06/24/24 20:53 Diagnostic Test (Pha) (Accu-Chek Comfort Curve T) 1 strip ACHS 06/24/24 22:00 06/24/24 22:00 Insulin Human Regular (InsuLIN R) HS SC 06/24/24 22:00 06/24/24 22:47 Insulin Human Regular (InsuLIN R) AC SC 06/25/24 07:00 Enoxaparin Sodium (Lovenox) 40 mg DAILY SC 06/25/24 10:00 Vancomycin HCl 250 ml @ 250 mls/hr Q24H IV 06/25/24 16:00 Haloperidol Lactate (Haldol) 2.5 mg Q8HP PRN IM AGITATION 06/25/24 13:15 06/25/24 17:02 Vital Signs Vital Signs Date Time Temp Pulse Resp B/P (MAP) Pulse Ox O2 Delivery O2 Flow Rate FiO2 06/25/24 18:30 95 Room Air 06/25/24 18:30 0 21 06/25/24 09:06 18 06/25/24 06:00 100 06/25/24 04:00 156/72 (100) 06/24/24 22:45 98.8 98.8 Physical Exam Gen.: Patient lying in bed in no apparent distress. Breathing on room air. Head: Normocephalic, atraumatic. Eyes: EOMI/PERRLA. Ears: Normal hearing. Normal anatomy. Neck/trachea: Trachea midline, supple. Nose: Normal external anatomy. Mouth: Moist mucous membranes. Chest: Decreased air entry bilaterally. No wheezing or rhonchi. Cardiovascular: Positive S1, positive S2. Regular rate and rhythm. Abdomen: Positive bowel sounds in all 4 quadrants. Soft, non-tender, non- distended. : Deferred. Rectal: Deferred. Skin: Warm, dry. Intact. Extremities: 2+ radial pulses bilaterally. No lower extremity edema. Neuro: Awake, alert, oriented x3. No gross motor or sensory deficits. Cranial nerves II through XII intact. Gait not assessed. Labs/Diagnostic Data Labs Test 06/24/24 22:21 06/24/24 18:46 06/24/24 13:47 Range/Units POC Glucose 231 H 70-106 mg/dl Sodium Level 135 L 136-145 mmol/L Potassium Level 5.4 H 3.5-5.1 mmol/L Chloride Level 106 98-107 mmol/L Carbon Dioxide Level 20 20-31 mmol/L Anion Gap 9 5-15 Blood Urea Nitrogen 25 H 9-23 mg/dL Creatinine 1.19 H 0.550-1.02 mg/dL Glomerular Filtration Rate Calc 47 >90 mL/min BUN/Creatinine Ratio 21.0 H 10.0-20.0 Serum Glucose 278 H 74-106 mg/dL Lactic Acid Level 0.9 0.4-2.0 mmol/L Calcium Level 9.4 8.7-10.4 mg/dL Troponin I High Sensitivity 9 </=34 ng/L White Blood Count 11.2 H 4.4-10.8 10^3/uL Red Blood Count 4.12 4.0-5.20 10^6/uL Hemoglobin 12.7 12.2-16.2 g/dL Hematocrit 38.5 36.0-46.0 % Mean Corpuscular Volume 93.5 80.0-100.0 fL Mean Corpuscular Hemoglobin 30.7 28.0-32.0 pg Mean Corpuscular Hemoglobin Concent 32.9 32.0-36.0 g/dL Red Cell Distribution Width 15.2 H 11.8-14.3 % Platelet Count 402 140-450 10^3/uL Mean Platelet Volume 7.4 6.9-10.8 fL Neutrophils (%) (Auto) 90.0 H 37.0-80.0 % Lymphocytes (%) (Auto) 5.0 L 10.0-50.0 % Monocytes (%) (Auto) 4.7 0.0-12.0 % Eosinophils (%) (Auto) 0.1 0.0-7.0 % Basophils (%) (Auto) 0.2 0.0-2.0 % Neutrophils # (Auto) 10.1 H 1.6-8.6 10 ^3/uL Lymphocytes # (Auto) 0.6 0.4-5.4 10 ^3/uL Monocytes # (Auto) 0.5 0-1.3 10 ^3/uL Eosinophils # (Auto) 0 0-0.8 10 ^3/uL Basophils # (Auto) 0 0-0.2 10 ^3/uL Nucleated Red Blood Cells 0.0 % Microbiology Date/Time Source Procedure Growth Status 06/24/24 18:46 Blood Blood Culture - Preliminary Resulted Assessment Impression: Right lower lobe pneumonia Right pleural effusion PEGGY on CKD Hx of kidney transplant, on antirejection medications Hyperkalemia Acute metabolic encephalopathy Sepsis due to pneumonia Hypertension Type 2 diabetes Recurrent UTIs Skin cancer Gallstones Plan: Supplemental oxygen PRN Titrate to keep O2 sats above 92%. CXR on 06/24/24 demonstrated multifocal right lung consolidative opacity and small right pleural effusion. Antibiotics Steroids, prednisone po Incentive spirometry BP control - antihypertensive medication Antirejection medications due to kidney transplant Note, patient is refusing medications. Monitor renal function due to PEGGY. Monitor electrolytes. Supplement as necessary. Monitor ins and outs. DVT prophylaxis. Prognosis: Poor given patient's multiple co-morbidities. Rest of plan per hospitalist and other consultants. Thank you, Dr. Claudio, for allowing me to participate in this patient's care. Further recommendations will depend on the patient's clinical course. Please do not hesitate to contact me if you have any questions or concerns. This medical document was created using an electronic medical record system with [employer] dictation system. Although these documentations are being carefully reviewed, there may still be some phonetic and typographical changes. The errors are purely typographical, due to imperfection on the software program, and do not reflect any compromise in the patient's medical care. Plan discussed with: Patient, Other (RN/Dr. Claudio) VALERIE SEGURA MD Jun 25, 2024 21:57
[2024-06-25 23:02] VITALS: RESP 18
[2024-06-26] VITALS (9 sets, daily range): BP systolic 121–168; BP diastolic 48–61; PULSE 89–108; RESP 16–20; TEMP 98.1–98.3; O2SAT 94–100
--- NOTE | 2024-06-26 10:25 | ECG ---
[facility] Test Date: 2024-06-25 Test Time: 18:52:19 Pat Name: ANGIE DE LEON Department: ER Room: 0249T Gender: F Complex Director: GP : 1945 Requested By: KECIA GARCIA Order Number: [id number] Reading MD: Prateek Matthew Measurements Intervals [place] Rate: 85 P: 31 NH: 157 QRS: 18 QRSD: 122 T: 201 QT: 454 QTc: 540 Interpretive Statements Sinus rhythm Probable left atrial enlargement Left bundle branch block Electronically Signed On 06-29-2024 17:33:26 PST by Prateek Matthew Please click the below link to view image of tracing.
--- NOTE | 2024-06-26 11:22 | DVHPN2 ---
Subjective The patient is calmer today compared to yesterday She is still confused and refusing care however She is not eating Changes from previous H/P or p: Changes Objective Vitals Vital Signs Date Time Temp Pulse Resp B/P (MAP) Pulse Ox O2 Delivery O2 Flow Rate FiO2 06/26/24 11:05 168/61 06/26/24 09:48 94 Room Air 0.0 06/26/24 09:48 21 06/26/24 06:27 98.3 98 20 98.3 Intake/Output Intake and Output 06/26/24 07:00 Intake Total 0 ml Output Total 0 ml Balance 0 ml Intake Oral 0 ml Output Urine Total 0 ml General Appearance: Alert, Other (Disoriented, hallucinating) Extremities: No edema Medications Current Medications Medications Dose Ordered Sig/Ben Route Start Time Stop Time Status Last Admin Dose Admin Vancomycin HCl 0 ml @ 0 mls/hr UD IV 06/24/24 19:00 Aztreonam 2 gm/ Dextrose 50 ml @ 100 mls/hr Q12HR IV 06/24/24 22:00 06/26/24 10:00 100 MLS/HR Losartan Potassium 25 mg DAILY PO 06/25/24 10:00 06/26/24 11:05 25 MG Tacrolimus 2 mg BIDAC PO 06/25/24 07:00 Prednisone 5 mg DAILY PO 06/25/24 10:00 06/26/24 11:03 5 MG Nifedipine 30 mg DAILY PO 06/25/24 10:00 06/26/24 11:04 30 MG Atorvastatin Calcium 20 mg HS PO 06/24/24 22:00 06/24/24 20:53 20 MG Albuterol 2.5 mg Q6HPRN PRN NEB 06/24/24 19:00 Diagnostic Test (Pha) 1 strip ACHS 06/24/24 22:00 06/26/24 11:05 1 STRIP Insulin Human Regular HS SC 06/24/24 22:00 06/24/24 22:47 4 UNITS Insulin Human Regular AC SC 06/25/24 07:00 06/26/24 06:06 9 UNITS Dextrose 50 ml UD PRN IV 06/24/24 19:00 Ondansetron HCl 4 mg Q4HP PRN IV 06/24/24 19:00 Enoxaparin Sodium 40 mg DAILY SC 06/25/24 10:00 06/26/24 11:04 40 MG Acetaminophen 650 mg Q6HP PRN PO 06/24/24 19:00 Vancomycin HCl 250 ml @ 250 mls/hr Q24H IV 06/25/24 16:00 Haloperidol Lactate 2.5 mg Q8HP PRN IM 06/25/24 13:15 06/26/24 00:43 2.5 MG Laboratory Results Laboratory Tests 06/24/24 13:47 06/24/24 18:46 Microbiology Microbiology Date/Time Source Procedure Growth Status 06/24/24 18:46 Blood Blood Culture - Preliminary Resulted Assessment/Plan Assessment/Plan Right lower lobe pneumonia Right pleural effusion Acute kidney injury superimposed on chronic kidney disease History of kidney transplant on antirejection medications Hyperkalemia Acute metabolic encephalopathy Sepsis due to pneumonia Hypertension Type 2 diabetes Recurrent UTIs Skin cancer Gallstones Constipation Diverticulosis Hepatomegaly Plan IV antibiotics aztreonam and vancomycin Oxygen as needed Haldol 2.5 mg IM every 8 hours p.r.n. agitation Sitter at the bedside Telemetry Resume antirejection medications including tacrolimus and prednisone Nifedipine for the hypertension Losartan Accu-Cheks for diabetes control 06/26/2024: Continue IV antibiotics Continue Haldol p.r.n. The patient refused to get labs today Monitor closely Plan discussed with: Patient My Orders Orders - YAMILETH LOPEZ MD Procedure Category Date Status Time *Consult CONS 06/25/24 Transmitted / 13:09 Haloperidol Lactate PHA 06/25/24 In Process Injection (Haldol) 13:15 Urinalysis LAB 06/25/24 Uncollected 13:11 Urine Bacterial GERMAN 06/25/24 Logged Culture 13:11 Mrsa Screen GERMAN 06/26/24 Uncollected 01:37 Date of Service: Jun 26, 2024 Billing Provider: YAMILETH LOPEZ MD Common Visit Codes: NOT BILLABLE YAMILETH LOPEZ MD Jun 26, 2024 11:22
--- NOTE | 2024-06-26 23:00 | DVHPN2 ---
Progress Note - Dictate Date Seen: Jun 26, 2024 Medical Necessity Reason Pt with a Central, PICC or Fol: No Subjective Patient seen and examined at bedside. Breathing comfortably on room air. Overnight events reviewed. vital signs Vital Sign Date Time Temp Pulse Resp B/P (MAP) Pulse Ox O2 Delivery O2 Flow Rate FiO2 06/26/24 21:00 98.1 94 18 121/51 (74) 100 98.1 06/26/24 19:22 Room Air* 0 21 Total Intake and Output 06/25/24 06/25/24 06/26/24 15:00 23:00 07:00 Intake Total 0 ml Output Total 0 ml Balance 0 ml medications Current Medications Medications Dose Ordered Sig/Ben Route Start Time Stop Time Status Last Admin Dose Admin Vancomycin HCl 0 ml @ 0 mls/hr UD IV 06/24/24 19:00 Aztreonam 2 gm/ Dextrose 50 ml @ 100 mls/hr Q12HR IV 06/24/24 22:00 06/26/24 21:32 100 MLS/HR Losartan Potassium 25 mg DAILY PO 06/25/24 10:00 06/26/24 11:05 25 MG Tacrolimus 2 mg BIDAC PO 06/25/24 07:00 06/26/24 17:56 2 MG Prednisone 5 mg DAILY PO 06/25/24 10:00 06/26/24 11:03 5 MG Nifedipine 30 mg DAILY PO 06/25/24 10:00 06/26/24 11:04 30 MG Atorvastatin Calcium 20 mg HS PO 06/24/24 22:00 06/26/24 21:31 20 MG Albuterol 2.5 mg Q6HPRN PRN NEB 06/24/24 19:00 Diagnostic Test (Pha) 1 strip ACHS 06/24/24 22:00 06/26/24 21:32 1 STRIP Insulin Human Regular HS SC 06/24/24 22:00 06/26/24 21:29 3 UNITS Insulin Human Regular AC SC 06/25/24 07:00 06/26/24 18:28 9 UNITS Dextrose 50 ml UD PRN IV 06/24/24 19:00 Ondansetron HCl 4 mg Q4HP PRN IV 06/24/24 19:00 Enoxaparin Sodium 40 mg DAILY SC 06/25/24 10:00 06/26/24 11:04 40 MG Acetaminophen 650 mg Q6HP PRN PO 06/24/24 19:00 Vancomycin HCl 250 ml @ 250 mls/hr Q24H IV 06/25/24 16:00 06/26/24 15:56 250 MLS/HR Haloperidol Lactate 2.5 mg Q8HP PRN IM 06/25/24 13:15 06/26/24 11:56 2.5 MG objective Gen.: Patient lying in bed in no apparent distress. Breathing on room air. Head: Normocephalic, atraumatic. Eyes: EOMI/PERRLA. Ears: Normal hearing. Normal anatomy. Neck/trachea: Trachea midline, supple. Nose: Normal external anatomy. Mouth: Moist mucous membranes. Chest: Decreased air entry bilaterally. No wheezing or rhonchi. Cardiovascular: Positive S1, positive S2. Regular rate and rhythm. Abdomen: Positive bowel sounds in all 4 quadrants. Soft, non-tender, non- distended. : Deferred. Rectal: Deferred. Skin: Warm, dry. Intact. Extremities: 2+ radial pulses bilaterally. No lower extremity edema. Neuro: Awake, alert, oriented x3. No gross motor or sensory deficits. Cranial nerves II through XII intact. Gait not assessed. laboratory and microbiology Laboratory Tests 06/24/24 18:46 06/24/24 13:47 Test 06/24/24 18:46 Range/Units Serum Glucose 278 H 74-106 mg/dL Assessment/Plan Impression: Right lower lobe pneumonia Right pleural effusion PEGGY on CKD Hx of kidney transplant, on antirejection medications Hyperkalemia Acute metabolic encephalopathy Sepsis due to pneumonia Hypertension Type 2 diabetes Recurrent UTIs Skin cancer Gallstones Events: On room air Supplemental oxygen PRN Improved o2 requirements Continue bronchodilators Continue antibiotics Continue steroids - prednisone PO Labs and imaging reviewed. Rest of plan as noted below. Plan: Supplemental oxygen PRN Titrate to keep O2 sats above 92%. CXR on 06/24/24 demonstrated multifocal right lung consolidative opacity and small right pleural effusion. Antibiotics Steroids, prednisone PO Incentive spirometry BP control - antihypertensive medication Antirejection medications due to kidney transplant Monitor renal function due to PEGGY. Monitor electrolytes. Supplement as necessary. Monitor ins and outs. DVT prophylaxis. Prognosis: Poor given patient's multiple co-morbidities. Rest of plan per hospitalist and other consultants. Thank you, Dr. Claudio, for allowing me to participate in this patient's care. Further recommendations will depend on the patient's clinical course. Please do not hesitate to contact me if you have any questions or concerns. This medical document was created using an electronic medical record system with [employer] dictation system. Although these documentations are being carefully reviewed, there may still be some phonetic and typographical changes. The errors are purely typographical, due to imperfection on the software program, and do not reflect any compromise in the patient's medical care. Plan discussed with: Patient, Other (JAMES Ruiz) VALERIE SEGURA MD Jun 26, 2024 23:00
[2024-06-27] VITALS (12 sets, daily range): BP systolic 111–144; BP diastolic 49–83; PULSE 90–110; RESP 16–20; TEMP 97.6–98.7; O2SAT 94–96
[2024-06-27] MEDS: ACETAMINOPHEN 325 MG TAB PO PRN (00:36)
[2024-06-27 06:55] LABS: Anion Gap 12 (5-15); Potassium 4.3 mmol/L (3.5-5.1); Sodium 142 mmol/L (136-145)
[2024-06-27 07:01] LABS: BUN/Creatinine Ratio 29.9 (10.0-20.0)
[2024-06-27 07:02] LABS: Blood Urea Nitrogen 32 mg/dL (9-23); Carbon Dioxide 18 mmol/L (20-31); Chloride 112 mmol/L (98-107); Glucose 195 mg/dL (74-106)
[2024-06-27 08:22] LABS: Urine Bacteria None Seen /hpf (None Seen)
[2024-06-27 08:54] LABS: Urine Blood Negative /uL (Negative); Urine Clarity Clear (Clear); Urine Color Light-Yellow (Yellow); Urine Protein, UAD TRACE (Negative); Urine Specific Gravity 1.017 (1.001-1.035); Urine Squamous Epithelial Cell FEW /hpf (<5); Urine Urobilinogen Normal (Negative); Urine WBC 1 /HPF (0-5)
--- NOTE | 2024-06-27 11:50 | DVHPN2 ---
Subjective No new complaints Changes from previous H/P or p: Changes Objective Vitals Vital Signs Date Time Temp Pulse Resp B/P (MAP) Pulse Ox O2 Delivery O2 Flow Rate FiO2 06/27/24 10:22 132/68 06/27/24 09:00 98.1 105 20 95 98.1 06/27/24 08:08 Nasal Cannula* 2 28 Intake/Output Intake and Output 06/27/24 07:00 Intake Total 1650 ml Balance 1650 ml Intake Oral 1300 ml IV Total 350 ml # Voids 5 # Bowel Movements 1 General Appearance: Alert, Other (Disoriented, hallucinating) Extremities: No edema Medications Current Medications Medications Dose Ordered Sig/Ben Route Start Time Stop Time Status Last Admin Dose Admin Vancomycin HCl 0 ml @ 0 mls/hr UD IV 06/24/24 19:00 Aztreonam 2 gm/ Dextrose 50 ml @ 100 mls/hr Q12HR IV 06/24/24 22:00 06/27/24 11:07 100 MLS/HR Losartan Potassium 25 mg DAILY PO 06/25/24 10:00 06/27/24 10:21 25 MG Tacrolimus 2 mg BIDAC PO 06/25/24 07:00 06/27/24 06:40 2 MG Prednisone 5 mg DAILY PO 06/25/24 10:00 06/27/24 10:22 5 MG Nifedipine 30 mg DAILY PO 06/25/24 10:00 06/27/24 10:22 30 MG Atorvastatin Calcium 20 mg HS PO 06/24/24 22:00 06/26/24 21:31 20 MG Albuterol 2.5 mg Q6HPRN PRN NEB 06/24/24 19:00 Diagnostic Test (Pha) 1 strip ACHS 06/24/24 22:00 06/27/24 06:41 1 STRIP Insulin Human Regular HS SC 06/24/24 22:00 06/26/24 21:29 3 UNITS Insulin Human Regular AC SC 06/25/24 07:00 06/27/24 06:39 6 UNITS Dextrose 50 ml UD PRN IV 06/24/24 19:00 Ondansetron HCl 4 mg Q4HP PRN IV 06/24/24 19:00 Enoxaparin Sodium 40 mg DAILY SC 06/25/24 10:00 06/27/24 10:23 40 MG Acetaminophen 650 mg Q6HP PRN PO 06/24/24 19:00 06/27/24 00:36 650 MG Vancomycin HCl 250 ml @ 250 mls/hr Q24H IV 06/25/24 16:00 06/26/24 15:56 250 MLS/HR Haloperidol Lactate 2.5 mg Q8HP PRN IM 06/25/24 13:15 06/26/24 11:56 2.5 MG Laboratory Results Laboratory Tests 06/24/24 13:47 06/27/24 06:02 Chemistry Test 06/27/24 06:02 Calcium Level 11.0 mg/dL (8.7-10.4) H Urinalysis Test 06/26/24 21:50 Urine Color Light-yellow (Yellow) Urine Clarity Clear (Clear) Urine pH 6.0 (5.0-9.0) Urine Specific [place] 1.017 (1.001-1.035) Urine Protein Trace (Negative) H Urine Ketones Trace (Negative) Urine Blood Negative /uL (Negative) Urine Nitrite Negative (Negative) Urine Bilirubin Negative (Negative) Urine Urobilinogen Normal mg/dL (Negative) Urine Leukocyte Esterase Negative /uL (Negative) Urine RBC <1 /hpf (0 - 4) Urine Microscopic WBC 1 /HPF (0-5) Urine Squamous Epithelial Cells Few /hpf (<5) Urine Bacteria None seen /hpf (None Seen) Urine Glucose 3+ mg/dL (Normal) H Microbiology Microbiology Date/Time Source Procedure Growth Status 06/26/24 21:50 Voided Urine Urine Culture - Preliminary Resulted 06/26/24 19:55 Nose MRSA Screen - Final Complete 06/24/24 18:46 Blood Blood Culture - Final Staphylococcus epidermidis Complete Assessment/Plan Assessment/Plan Right lower lobe pneumonia Right pleural effusion Acute kidney injury superimposed on chronic kidney disease History of kidney transplant on antirejection medications Hyperkalemia Acute metabolic encephalopathy Sepsis due to pneumonia Hypertension Type 2 diabetes Recurrent UTIs Skin cancer Gallstones Constipation Diverticulosis Hepatomegaly Plan IV antibiotics aztreonam and vancomycin Oxygen as needed Haldol 2.5 mg IM every 8 hours p.r.n. agitation Sitter at the bedside Telemetry Resume antirejection medications including tacrolimus and prednisone Nifedipine for the hypertension Losartan Accu-Cheks for diabetes control 06/26/2024: Continue IV antibiotics Continue Haldol p.r.n. The patient refused to get labs today Monitor closely 06/27/2024: Continue the IV antibiotics P.r.n. Haldol Continue the anti-rejection medications Physical therapy evaluation Monitor closely The rest of the management will depend on the hospital course Plan discussed with: Patient, Son, Other My Orders Orders - YAMILETH LOPEZ MD Procedure Category Date Status Time Pop[employer] Machine Operator ORDERS 06/26/24 Transmitted 12:04 Date of Service: Jun 27, 2024 Billing Provider: YAMILETH LOPEZ MD Common Visit Codes: NOT BILLABLE YAMILETH LOPEZ MD Jun 27, 2024 11:50
[2024-06-27] MEDS: HYDROcodone-ACET 10/325MG TAB PO PRN (22:00)
--- NOTE | 2024-06-27 22:32 | DVHPN2 ---
Progress Note - Dictate Date Seen: Jun 27, 2024 Medical Necessity Reason Pt with a Central, PICC or Fol: No Subjective Patient seen and examined at bedside. Breathing comfortably on room air. Overnight events reviewed. vital signs Vital Sign Date Time Temp Pulse Resp B/P (MAP) Pulse Ox O2 Delivery O2 Flow Rate FiO2 06/27/24 21:00 98.2 106 18 111/66 (81) 96 98.2 06/27/24 19:16 0.0 21 06/27/24 08:30 Room Air* Total Intake and Output 06/26/24 06/26/24 06/27/24 15:00 23:00 07:00 Intake Total 50 ml 1300 ml 300 ml Balance 50 ml 1300 ml 300 ml medications Current Medications Medications Dose Ordered Sig/Ben Route Start Time Stop Time Status Last Admin Dose Admin Vancomycin HCl 0 ml @ 0 mls/hr UD IV 06/24/24 19:00 Aztreonam 2 gm/ Dextrose 50 ml @ 100 mls/hr Q12HR IV 06/24/24 22:00 06/27/24 22:00 100 MLS/HR Losartan Potassium 25 mg DAILY PO 06/25/24 10:00 06/27/24 10:21 25 MG Tacrolimus 2 mg BIDAC PO 06/25/24 07:00 06/27/24 17:17 2 MG Prednisone 5 mg DAILY PO 06/25/24 10:00 06/27/24 10:22 5 MG Nifedipine 30 mg DAILY PO 06/25/24 10:00 06/27/24 10:22 30 MG Atorvastatin Calcium 20 mg HS PO 06/24/24 22:00 06/27/24 21:59 20 MG Albuterol 2.5 mg Q6HPRN PRN NEB 06/24/24 19:00 Diagnostic Test (Pha) 1 strip ACHS 06/24/24 22:00 06/27/24 22:00 1 STRIP Insulin Human Regular HS SC 06/24/24 22:00 06/27/24 22:15 3 UNITS Insulin Human Regular AC SC 06/25/24 07:00 06/27/24 17:04 9 UNITS Dextrose 50 ml UD PRN IV 06/24/24 19:00 Ondansetron HCl 4 mg Q4HP PRN IV 06/24/24 19:00 Enoxaparin Sodium 40 mg DAILY SC 06/25/24 10:00 06/27/24 10:23 40 MG Acetaminophen 650 mg Q6HP PRN PO 06/24/24 19:00 06/27/24 12:10 650 MG Vancomycin HCl 250 ml @ 250 mls/hr Q24H IV 06/25/24 16:00 06/27/24 16:53 250 MLS/HR Haloperidol Lactate 2.5 mg Q8HP PRN IM 06/25/24 13:15 06/26/24 11:56 2.5 MG Acetaminophen/ Hydrocodone Bitart 1 tab Q6HP PRN PO 06/27/24 21:30 06/27/24 22:00 1 TAB objective Gen.: Patient lying in bed in no apparent distress. Breathing on room air. Head: Normocephalic, atraumatic. Eyes: EOMI/PERRLA. Ears: Normal hearing. Normal anatomy. Neck/trachea: Trachea midline, supple. Nose: Normal external anatomy. Mouth: Moist mucous membranes. Chest: Decreased air entry bilaterally. No wheezing or rhonchi. Cardiovascular: Positive S1, positive S2. Regular rate and rhythm. Abdomen: Positive bowel sounds in all 4 quadrants. Soft, non-tender, non- distended. : Deferred. Rectal: Deferred. Skin: Warm, dry. Intact. Extremities: 2+ radial pulses bilaterally. No lower extremity edema. Neuro: Awake, alert, oriented x3. No gross motor or sensory deficits. Cranial nerves II through XII intact. Gait not assessed. laboratory and microbiology Laboratory Tests 06/27/24 06:02 06/24/24 13:47 Test 06/27/24 06:02 Range/Units Serum Glucose 195 H 74-106 mg/dL Assessment/Plan Impression: Right lower lobe pneumonia Right pleural effusion PEGGY on CKD Hx of kidney transplant, on antirejection medications Hyperkalemia Acute metabolic encephalopathy Sepsis due to pneumonia Hypertension Type 2 diabetes Recurrent UTIs Skin cancer Gallstones Events: On room air Supplemental oxygen PRN Improved o2 requirements Patient is feeling better. Continue antibiotics Continue steroids - prednisone PO Incentive spirometry Labs and imaging reviewed. Rest of plan as noted below. Plan: Supplemental oxygen PRN Titrate to keep O2 sats above 92%. CXR on 06/24/24 demonstrated multifocal right lung consolidative opacity and small right pleural effusion. Antibiotics Steroids, prednisone PO Incentive spirometry BP control - antihypertensive medication Antirejection medications due to kidney transplant Monitor renal function due to PEGGY. Monitor electrolytes. Supplement as necessary. Monitor ins and outs. DVT prophylaxis. Prognosis: Guarded given patient's multiple co-morbidities. Rest of plan per hospitalist and other consultants. Thank you, Dr. Claudio, for allowing me to participate in this patient's care. Further recommendations will depend on the patient's clinical course. Please do not hesitate to contact me if you have any questions or concerns. This medical document was created using an electronic medical record system with [employer] dictation system. Although these documentations are being carefully reviewed, there may still be some phonetic and typographical changes. The errors are purely typographical, due to imperfection on the software program, and do not reflect any compromise in the patient's medical care. Plan discussed with: Patient, Other (JAMES Bridges) VALERIE SEGURA MD Jun 27, 2024 22:32
[2024-06-28] VITALS (10 sets, daily range): BP systolic 119–149; BP diastolic 47–72; PULSE 80–103; RESP 17–19; TEMP 97.5–98.5; O2SAT 94–96
[2024-06-28 07:12] LABS: Basophils # (auto) 0 10 ^3/uL (0-0.2); Basophils % (auto) 0.1 % (0.0-2.0); Eosinophils # (auto) 0.1 10 ^3/uL (0-0.8); Eosinophils % (auto) 1.3 % (0.0-7.0); Hematocrit 34.9 % (36.0-46.0); Hemoglobin 11.5 g/dL (12.2-16.2); Lymphocytes # (auto) 0.3 10 ^3/uL (0.4-5.4); Lymphocytes % (auto) 4.1 % (10.0-50.0); Mean Corpuscular Hemoglobin 30.5 pg (28.0-32.0); Mean Corpuscular Hgb Conc. 32.8 g/dL (32.0-36.0); Monocytes # (auto) 0.6 10 ^3/uL (0-1.3); Monocytes % (auto) 6.9 % (0.0-12.0); Neutrophils # (auto) 7.1 10 ^3/uL (1.6-8.6); Neutrophils % (auto) 87.6 % (37.0-80.0); Platelet Count (auto) 408 10^3/uL (140-450); Red Blood Cells 3.75 10^6/uL (4.0-5.20); White Blood Cell 8.1 10^3/uL (4.4-10.8)
[2024-06-28 07:55] LABS: Alanine Aminotransferase 13 U/L (7-40); Albumin 3.6 g/dL (3.2-4.8); Alkaline Phosphatase 73 U/L (46-116); Anion Gap 11 (5-15); Aspartate Aminotransferase 14 U/L (13-40); BUN/Creatinine Ratio 29.4 (10.0-20.0); Blood Urea Nitrogen 30 mg/dL (9-23); Calcium 10.9 mg/dL (8.7-10.4); Carbon Dioxide 18 mmol/L (20-31); Chloride 110 mmol/L (98-107); Glucose 185 mg/dL (74-106); Magnesium 1.9 mg/dL (1.6-2.6); Potassium 4.2 mmol/L (3.5-5.1); Sodium 139 mmol/L (136-145)
[2024-06-28 07:56] LABS: Bilirubin, Total 0.3 mg/dL (0.2-1.0); Total Protein 5.2 g/dL (5.7-8.2)
--- NOTE | 2024-06-28 12:11 | DVHPN2 ---
Subjective She is much better today more alert and oriented and pleasant She is on room air Changes from previous H/P or p: Changes Objective Vitals Vital Signs Date Time Temp Pulse Resp B/P (MAP) Pulse Ox O2 Delivery O2 Flow Rate FiO2 06/28/24 10:38 135/52 06/28/24 09:00 97.5 98 17 95 97.5 06/28/24 08:00 Room Air* 0 21 Intake/Output Intake and Output 06/28/24 07:00 Intake Total 1490 ml Balance 1490 ml Intake Oral 1190 ml IV Total 300 ml # Voids 12 # Bowel Movements 6 General Appearance: Alert, Other (Disoriented, hallucinating) Extremities: No edema Medications Current Medications Medications Dose Ordered Sig/Ben Route Start Time Stop Time Status Last Admin Dose Admin Vancomycin HCl 0 ml @ 0 mls/hr UD IV 06/24/24 19:00 Aztreonam 2 gm/ Dextrose 50 ml @ 100 mls/hr Q12HR IV 06/24/24 22:00 06/28/24 10:59 100 MLS/HR Losartan Potassium 25 mg DAILY PO 06/25/24 10:00 06/28/24 10:38 25 MG Tacrolimus 2 mg BIDAC PO 06/25/24 07:00 06/28/24 06:22 2 MG Prednisone 5 mg DAILY PO 06/25/24 10:00 06/28/24 10:38 5 MG Nifedipine 30 mg DAILY PO 06/25/24 10:00 06/28/24 10:38 30 MG Atorvastatin Calcium 20 mg HS PO 06/24/24 22:00 06/27/24 21:59 20 MG Albuterol 2.5 mg Q6HPRN PRN NEB 06/24/24 19:00 Diagnostic Test (Pha) 1 strip ACHS 06/24/24 22:00 06/28/24 11:00 1 STRIP Insulin Human Regular HS SC 06/24/24 22:00 06/27/24 22:15 3 UNITS Insulin Human Regular AC SC 06/25/24 07:00 06/28/24 11:06 9 UNITS Dextrose 50 ml UD PRN IV 06/24/24 19:00 Ondansetron HCl 4 mg Q4HP PRN IV 06/24/24 19:00 Enoxaparin Sodium 40 mg DAILY SC 06/25/24 10:00 06/28/24 10:39 40 MG Acetaminophen 650 mg Q6HP PRN PO 06/24/24 19:00 06/27/24 12:10 650 MG Vancomycin HCl 250 ml @ 250 mls/hr Q24H IV 06/25/24 16:00 06/27/24 16:53 250 MLS/HR Haloperidol Lactate 2.5 mg Q8HP PRN IM 06/25/24 13:15 06/26/24 11:56 2.5 MG Acetaminophen/ Hydrocodone Bitart 1 tab Q6HP PRN PO 06/27/24 21:30 06/28/24 10:39 1 TAB Laboratory Results Laboratory Tests 06/28/24 05:45 Chemistry Test 06/28/24 05:45 Albumin 3.6 g/dL (3.2-4.8) Calcium Level 10.9 mg/dL (8.7-10.4) H Magnesium Level 1.9 mg/dL (1.6-2.6) Total Protein 5.2 g/dL (5.7-8.2) L LFT Test 06/28/24 05:45 Alanine Aminotransferase (ALT) 13 U/L (7-40) Alkaline Phosphatase 73 U/L (46-116) Aspartate Amino Transferase (AST) 14 U/L (13-40) Total Bilirubin 0.3 mg/dL (0.2-1.0) Urinalysis Test 06/26/24 21:50 Urine Color Light-yellow (Yellow) Urine Clarity Clear (Clear) Urine pH 6.0 (5.0-9.0) Urine Specific [place] 1.017 (1.001-1.035) Urine Protein Trace (Negative) H Urine Ketones Trace (Negative) Urine Blood Negative /uL (Negative) Urine Nitrite Negative (Negative) Urine Bilirubin Negative (Negative) Urine Urobilinogen Normal mg/dL (Negative) Urine Leukocyte Esterase Negative /uL (Negative) Urine RBC <1 /hpf (0 - 4) Urine Microscopic WBC 1 /HPF (0-5) Urine Squamous Epithelial Cells Few /hpf (<5) Urine Bacteria None seen /hpf (None Seen) Urine Glucose 3+ mg/dL (Normal) H Microbiology Microbiology Date/Time Source Procedure Growth Status 06/26/24 21:50 Voided Urine Urine Culture - Preliminary Resulted 06/26/24 19:55 Nose MRSA Screen - Final Complete 06/24/24 18:46 Blood Blood Culture - Final Staphylococcus epidermidis Complete Assessment/Plan Assessment/Plan Right lower lobe pneumonia Right pleural effusion Acute kidney injury superimposed on chronic kidney disease History of kidney transplant on antirejection medications Hyperkalemia Acute metabolic encephalopathy Sepsis due to pneumonia Hypertension Type 2 diabetes Recurrent UTIs Skin cancer Gallstones Constipation Diverticulosis Hepatomegaly Plan IV antibiotics aztreonam and vancomycin Oxygen as needed Haldol 2.5 mg IM every 8 hours p.r.n. agitation Sitter at the bedside Telemetry Resume antirejection medications including tacrolimus and prednisone Nifedipine for the hypertension Losartan Accu-Cheks for diabetes control 06/26/2024: Continue IV antibiotics Continue Haldol p.r.n. The patient refused to get labs today Monitor closely 06/27/2024: Continue the IV antibiotics P.r.n. Haldol Continue the anti-rejection medications Physical therapy evaluation Monitor closely The rest of the management will depend on the hospital course 06/28/2024: Continue the IV antibiotics Physical therapy Out of bed as tolerated Monitor closely in the hospital 1 more day Discharge planning for tomorrow Plan discussed with: Patient My Orders Orders - YAMILETH LOPEZ MD Procedure Category Date Status Time Apply Barrier Cream ABI 06/27/24 In Process 14:05 * Wound Consult CONS 06/27/24 Transmitted Date of Service: Jun 28, 2024 Billing Provider: YAMILETH LOPEZ MD Common Visit Codes: NOT BILLABLE YAMILETH LOPEZ MD Jun 28, 2024 12:11
--- NOTE | 2024-06-28 23:12 | DVHPN2 ---
Progress Note - Dictate Date Seen: Jun 28, 2024 Medical Necessity Reason Pt with a Central, PICC or Fol: No Subjective Patient seen and examined at bedside. Breathing comfortably on room air. Overnight events reviewed. vital signs Vital Sign Date Time Temp Pulse Resp B/P (MAP) Pulse Ox O2 Delivery O2 Flow Rate FiO2 06/28/24 20:48 98.0 103 18 139/69 (92) 94 98.0 06/28/24 20:00 Room Air* 0 21 Total Intake and Output 06/27/24 06/27/24 06/28/24 15:00 23:00 07:00 Intake Total 1190 ml 300 ml Balance 1190 ml 300 ml medications Current Medications Medications Dose Ordered Sig/Ben Route Start Time Stop Time Status Last Admin Dose Admin Vancomycin HCl 0 ml @ 0 mls/hr UD IV 06/24/24 19:00 Aztreonam 2 gm/ Dextrose 50 ml @ 100 mls/hr Q12HR IV 06/24/24 22:00 06/28/24 10:59 100 MLS/HR Losartan Potassium 25 mg DAILY PO 06/25/24 10:00 06/28/24 10:38 25 MG Tacrolimus 2 mg BIDAC PO 06/25/24 07:00 06/28/24 16:53 2 MG Prednisone 5 mg DAILY PO 06/25/24 10:00 06/28/24 10:38 5 MG Nifedipine 30 mg DAILY PO 06/25/24 10:00 06/28/24 10:38 30 MG Atorvastatin Calcium 20 mg HS PO 06/24/24 22:00 06/28/24 21:13 20 MG Albuterol 2.5 mg Q6HPRN PRN NEB 06/24/24 19:00 Diagnostic Test (Pha) 1 strip ACHS 06/24/24 22:00 06/28/24 21:18 1 STRIP Insulin Human Regular HS SC 06/24/24 22:00 06/28/24 21:04 3 UNITS Insulin Human Regular AC SC 06/25/24 07:00 06/28/24 16:54 6 UNITS Dextrose 50 ml UD PRN IV 06/24/24 19:00 Ondansetron HCl 4 mg Q4HP PRN IV 06/24/24 19:00 Enoxaparin Sodium 40 mg DAILY SC 06/25/24 10:00 06/28/24 10:39 40 MG Acetaminophen 650 mg Q6HP PRN PO 06/24/24 19:00 06/27/24 12:10 650 MG Vancomycin HCl 250 ml @ 250 mls/hr Q24H IV 06/25/24 16:00 06/28/24 16:53 250 MLS/HR Haloperidol Lactate 2.5 mg Q8HP PRN IM 06/25/24 13:15 06/26/24 11:56 2.5 MG Acetaminophen/ Hydrocodone Bitart 1 tab Q6HP PRN PO 06/27/24 21:30 06/28/24 21:13 1 TAB objective Gen.: Patient lying in bed in no apparent distress. Breathing on room air. Head: Normocephalic, atraumatic. Eyes: EOMI/PERRLA. Ears: Normal hearing. Normal anatomy. Neck/trachea: Trachea midline, supple. Nose: Normal external anatomy. Mouth: Moist mucous membranes. Chest: Decreased air entry bilaterally. No wheezing or rhonchi. Cardiovascular: Positive S1, positive S2. Regular rate and rhythm. Abdomen: Positive bowel sounds in all 4 quadrants. Soft, non-tender, non- distended. : Deferred. Rectal: Deferred. Skin: Warm, dry. Intact. Extremities: 2+ radial pulses bilaterally. No lower extremity edema. Neuro: Awake, alert, oriented x3. No gross motor or sensory deficits. Cranial nerves II through XII intact. Gait not assessed. laboratory and microbiology Laboratory Tests 06/28/24 05:45 Test 06/28/24 05:45 Range/Units Serum Glucose 185 H 74-106 mg/dL Assessment/Plan Impression: Right lower lobe pneumonia Right pleural effusion PEGGY on CKD Hx of kidney transplant, on antirejection medications Hyperkalemia Acute metabolic encephalopathy Sepsis due to pneumonia Hypertension Type 2 diabetes Recurrent UTIs Skin cancer Gallstones Events: On room air Supplemental oxygen PRN Improved O2 requirements Continue antibiotics Continue steroids - prednisone PO Incentive spirometry Head of bed elevation Aspiration precautions Patient is stable for discharge from the pulmonary standpoint. Labs and imaging reviewed. Rest of plan as noted below. Plan: Supplemental oxygen PRN Titrate to keep O2 sats above 92%. CXR on 06/24/24 demonstrated multifocal right lung consolidative opacity and small right pleural effusion. Antibiotics Steroids, prednisone PO Incentive spirometry BP control - antihypertensive medication Antirejection medications due to kidney transplant Monitor renal function due to PEGGY. Monitor electrolytes. Supplement as necessary. Monitor ins and outs. DVT prophylaxis. Prognosis: Guarded given patient's multiple co-morbidities. Rest of plan per hospitalist and other consultants. Thank you, Dr. Claudio, for allowing me to participate in this patient's care. Further recommendations will depend on the patient's clinical course. Please do not hesitate to contact me if you have any questions or concerns. This medical document was created using an electronic medical record system with [employer] dictation system. Although these documentations are being carefully reviewed, there may still be some phonetic and typographical changes. The errors are purely typographical, due to imperfection on the software program, and do not reflect any compromise in the patient's medical care. Dietary Evaluation Review Comments: Follow a CCHO-60 Renal 50 g protein restriction diet Expected Outcomes/Goals: controlled DM and controlled uremic synptoms Plan discussed with: Patient, Other (RN Summer) VALERIE SEGURA MD Jun 28, 2024 23:12
[2024-06-29] VITALS (7 sets, daily range): BP systolic 125–154; BP diastolic 40–57; PULSE 95–105; RESP 17–19; TEMP 97.9–98; O2SAT 92–96
[2024-06-29 06:42] LABS: Basophils # (auto) 0 10 ^3/uL (0-0.2); Basophils % (auto) 0.4 % (0.0-2.0); Eosinophils # (auto) 0.1 10 ^3/uL (0-0.8); Hematocrit 35.2 % (36.0-46.0); Hemoglobin 11.5 g/dL (12.2-16.2); Lymphocytes # (auto) 0.5 10 ^3/uL (0.4-5.4); Mean Corpuscular Hemoglobin 30.4 pg (28.0-32.0); Mean Corpuscular Hgb Conc. 32.8 g/dL (32.0-36.0); Mean Corpuscular Volume 92.8 fL (80.0-100.0); Monocytes # (auto) 0.5 10 ^3/uL (0-1.3); Monocytes % (auto) 8.9 % (0.0-12.0); Neutrophils % (auto) 81.7 % (37.0-80.0); Nucleated Red Blood Cells % 0.2 %; Platelet Count (auto) 390 10^3/uL (140-450); Red Blood Cells 3.79 10^6/uL (4.0-5.20); Red Cell Distribution Width 14.6 % (11.8-14.3); White Blood Cell 6.1 10^3/uL (4.4-10.8)
--- NOTE | 2024-06-29 11:22 | DVHPN2 ---
Subjective She is much better today more alert and oriented and pleasant She is on room air c/o productive cough Changes from previous H/P or p: Changes Objective Vitals Vital Signs Date Time Temp Pulse Resp B/P (MAP) Pulse Ox O2 Delivery O2 Flow Rate FiO2 06/29/24 10:50 129/40 06/29/24 09:21 100 19 93 06/29/24 08:00 Nasal Cannula* 2 28 06/29/24 05:00 98.0 98.0 Intake/Output Intake and Output 06/29/24 07:00 Intake Total 1507 ml Output Total 250 ml Balance 1257 ml Intake Oral 1207 ml IV Total 300 ml Output Urine Total 250 ml # Voids 3 General Appearance: Alert, Other (Disoriented, hallucinating) Extremities: No edema Medications Current Medications Medications Dose Ordered Sig/Ben Route Start Time Stop Time Status Last Admin Dose Admin Vancomycin HCl 0 ml @ 0 mls/hr UD IV 06/24/24 19:00 Aztreonam 2 gm/ Dextrose 50 ml @ 100 mls/hr Q12HR IV 06/24/24 22:00 06/28/24 10:59 100 MLS/HR Losartan Potassium 25 mg DAILY PO 06/25/24 10:00 06/29/24 10:50 25 MG Tacrolimus 2 mg BIDAC PO 06/25/24 07:00 06/29/24 04:08 2 MG Prednisone 5 mg DAILY PO 06/25/24 10:00 06/29/24 10:49 5 MG Nifedipine 30 mg DAILY PO 06/25/24 10:00 06/29/24 10:50 30 MG Atorvastatin Calcium 20 mg HS PO 06/24/24 22:00 06/28/24 21:13 20 MG Albuterol 2.5 mg Q6HPRN PRN NEB 06/24/24 19:00 Diagnostic Test (Pha) 1 strip ACHS 06/24/24 22:00 06/29/24 10:52 1 STRIP Insulin Human Regular HS SC 06/24/24 22:00 06/28/24 21:04 3 UNITS Insulin Human Regular AC SC 06/25/24 07:00 06/29/24 04:36 3 UNITS Dextrose 50 ml UD PRN IV 06/24/24 19:00 Ondansetron HCl 4 mg Q4HP PRN IV 06/24/24 19:00 Enoxaparin Sodium 40 mg DAILY SC 06/25/24 10:00 06/29/24 10:51 40 MG Acetaminophen 650 mg Q6HP PRN PO 06/24/24 19:00 06/27/24 12:10 650 MG Vancomycin HCl 250 ml @ 250 mls/hr Q24H IV 06/25/24 16:00 06/28/24 16:53 250 MLS/HR Haloperidol Lactate 2.5 mg Q8HP PRN IM 06/25/24 13:15 06/26/24 11:56 2.5 MG Acetaminophen/ Hydrocodone Bitart 1 tab Q6HP PRN PO 06/27/24 21:30 06/29/24 08:39 1 TAB Laboratory Results Laboratory Tests 06/28/24 05:45 06/29/24 05:20 Urinalysis Test 06/26/24 21:50 Urine Color Light-yellow (Yellow) Urine Clarity Clear (Clear) Urine pH 6.0 (5.0-9.0) Urine Specific [place] 1.017 (1.001-1.035) Urine Protein Trace (Negative) H Urine Ketones Trace (Negative) Urine Blood Negative /uL (Negative) Urine Nitrite Negative (Negative) Urine Bilirubin Negative (Negative) Urine Urobilinogen Normal mg/dL (Negative) Urine Leukocyte Esterase Negative /uL (Negative) Urine RBC <1 /hpf (0 - 4) Urine Microscopic WBC 1 /HPF (0-5) Urine Squamous Epithelial Cells Few /hpf (<5) Urine Bacteria None seen /hpf (None Seen) Urine Glucose 3+ mg/dL (Normal) H Microbiology Microbiology Date/Time Source Procedure Growth Status 06/26/24 21:50 Voided Urine Urine Culture - Preliminary Resulted 06/26/24 19:55 Nose MRSA Screen - Final Complete 06/24/24 18:46 Blood Blood Culture - Final Staphylococcus epidermidis Complete Assessment/Plan Assessment/Plan Right lower lobe pneumonia Right pleural effusion Acute kidney injury superimposed on chronic kidney disease History of kidney transplant on antirejection medications Hyperkalemia Acute metabolic encephalopathy Sepsis due to pneumonia Hypertension Type 2 diabetes Recurrent UTIs Skin cancer Gallstones Constipation Diverticulosis Hepatomegaly Plan IV antibiotics aztreonam and vancomycin Oxygen as needed Haldol 2.5 mg IM every 8 hours p.r.n. agitation Sitter at the bedside Telemetry Resume antirejection medications including tacrolimus and prednisone Nifedipine for the hypertension Losartan Accu-Cheks for diabetes control 06/26/2024: Continue IV antibiotics Continue Haldol p.r.n. The patient refused to get labs today Monitor closely 06/27/2024: Continue the IV antibiotics P.r.n. Haldol Continue the anti-rejection medications Physical therapy evaluation Monitor closely The rest of the management will depend on the hospital course 06/28/2024: Continue the IV antibiotics Physical therapy Out of bed as tolerated Monitor closely in the hospital 1 more day Discharge planning for tomorrow 06/29/24: Repeat CXR Sputum C&S Continue Azreonam and Vanco Discussed with her son at the bedside Plan discussed with: Patient, Son My Orders Orders - YAMILETH LOPEZ MD Procedure Category Date Status Time Respiratory Culture GERMAN 06/29/24 Verified W/ Gs 11:19 Chest Portable XY 06/29/24 Verified 11:19 Date of Service: Jun 29, 2024 Billing Provider: YAMILETH LOPEZ MD Common Visit Codes: NOT BILLABLE YAMILETH LOPEZ MD Jun 29, 2024 11:22
--- NOTE | 2024-06-29 12:27 | DVH ---
CHEST RADIOGRAPH Indication: pna Technique: Single frontal view of the chest was obtained COMPARISON: XY CHEST PORTABLE DOS: 06/13/24 FINDINGS: Lines and Tubes: None Lungs: Clear Pleura: Moderate right pleural effusion. Patchy infiltrate of the mid and lower right lung field. Ef facement right hemidiaphragm and right heart border. No pneumothorax. Cardiomediastinal contours: Unremarkable Bones: Unremarkable IMPRESSION: 1. Moderate right pleural effusion. Effacement right hemidiaphragm and right heart border.
--- NOTE | 2024-06-29 23:34 | DVHPN2 ---
Progress Note - Dictate Date Seen: Jun 29, 2024 Medical Necessity Reason Pt with a Central, PICC or Fol: No Subjective Patient seen and examined at bedside. Breathing comfortably on room air. Overnight events reviewed. vital signs Vital Sign Date Time Temp Pulse Resp B/P (MAP) Pulse Ox O2 Delivery O2 Flow Rate FiO2 06/29/24 20:00 101 06/29/24 17:06 97.9 17 130/48 (75) 92 97.9 06/29/24 08:00 Nasal Cannula* 2 28 Total Intake and Output 06/28/24 06/28/24 06/29/24 15:00 23:00 07:00 Intake Total 50 ml 1070 ml 387 ml Output Total 250 ml Balance 50 ml 1070 ml 137 ml medications Current Medications Medications Dose Ordered Sig/Ben Route Start Time Stop Time Status Last Admin Dose Admin Vancomycin HCl 0 ml @ 0 mls/hr UD IV 06/24/24 19:00 Aztreonam 2 gm/ Dextrose 50 ml @ 100 mls/hr Q12HR IV 06/24/24 22:00 06/29/24 10:00 100 MLS/HR Losartan Potassium 25 mg DAILY PO 06/25/24 10:00 06/29/24 10:50 25 MG Tacrolimus 2 mg BIDAC PO 06/25/24 07:00 06/29/24 17:25 2 MG Prednisone 5 mg DAILY PO 06/25/24 10:00 06/29/24 10:49 5 MG Nifedipine 30 mg DAILY PO 06/25/24 10:00 06/29/24 10:50 30 MG Atorvastatin Calcium 20 mg HS PO 06/24/24 22:00 06/29/24 22:31 20 MG Albuterol 2.5 mg Q6HPRN PRN NEB 06/24/24 19:00 Diagnostic Test (Pha) 1 strip ACHS 06/24/24 22:00 06/29/24 22:39 1 STRIP Insulin Human Regular HS SC 06/24/24 22:00 06/29/24 22:40 6 UNITS Insulin Human Regular AC SC 06/25/24 07:00 06/29/24 17:29 6 UNITS Dextrose 50 ml UD PRN IV 06/24/24 19:00 Ondansetron HCl 4 mg Q4HP PRN IV 06/24/24 19:00 Enoxaparin Sodium 40 mg DAILY SC 06/25/24 10:00 06/29/24 10:51 40 MG Acetaminophen 650 mg Q6HP PRN PO 06/24/24 19:00 06/27/24 12:10 650 MG Vancomycin HCl 250 ml @ 250 mls/hr Q24H IV 06/25/24 16:00 06/29/24 16:00 250 MLS/HR Haloperidol Lactate 2.5 mg Q8HP PRN IM 06/25/24 13:15 06/26/24 11:56 2.5 MG Acetaminophen/ Hydrocodone Bitart 1 tab Q6HP PRN PO 06/27/24 21:30 06/29/24 22:32 1 TAB objective Gen.: Patient lying in bed in no apparent distress. Breathing on room air. Head: Normocephalic, atraumatic. Eyes: EOMI/PERRLA. Ears: Normal hearing. Normal anatomy. Neck/trachea: Trachea midline, supple. Nose: Normal external anatomy. Mouth: Moist mucous membranes. Chest: Decreased air entry bilaterally. No wheezing or rhonchi. Cardiovascular: Positive S1, positive S2. Regular rate and rhythm. Abdomen: Positive bowel sounds in all 4 quadrants. Soft, non-tender, non- distended. : Deferred. Rectal: Deferred. Skin: Warm, dry. Intact. Extremities: 2+ radial pulses bilaterally. No lower extremity edema. Neuro: Awake, alert, oriented x3. No gross motor or sensory deficits. Cranial nerves II through XII intact. Gait not assessed. laboratory and microbiology Laboratory Tests 06/29/24 05:20 06/28/24 05:45 Test 06/28/24 05:45 Range/Units Serum Glucose 185 H 74-106 mg/dL Assessment/Plan Impression: Right lower lobe pneumonia Right pleural effusion PEGGY on CKD Hx of kidney transplant, on antirejection medications Hyperkalemia Acute metabolic encephalopathy Sepsis due to pneumonia Hypertension Type 2 diabetes Recurrent UTIs Skin cancer Gallstones Events: On room air Supplemental oxygen PRN Improved O2 requirements CXR reviewed, shows moderate right pleural effusion. Effacement of right hemidiaphragm and right heart border. Continue antibiotics Continue steroids - prednisone PO Incentive spirometry Head of bed elevation Aspiration precautions Patient is stable for discharge from the pulmonary standpoint. Disposition per hospitalist. Labs and imaging reviewed. Rest of plan as noted below. Plan: Supplemental oxygen PRN Titrate to keep O2 sats above 92%. Antibiotics Steroids, prednisone PO Incentive spirometry BP control - antihypertensive medication Antirejection medications due to kidney transplant Monitor renal function due to PEGGY. Monitor electrolytes. Supplement as necessary. Monitor ins and outs. DVT prophylaxis. Prognosis: Guarded given patient's multiple co-morbidities. Rest of plan per hospitalist and other consultants. Thank you, Dr. Claudio, for allowing me to participate in this patient's care. Further recommendations will depend on the patient's clinical course. Please do not hesitate to contact me if you have any questions or concerns. This medical document was created using an electronic medical record system with [employer] dictation system. Although these documentations are being carefully reviewed, there may still be some phonetic and typographical changes. The errors are purely typographical, due to imperfection on the software program, and do not reflect any compromise in the patient's medical care. Dietary Evaluation Review Comments: Follow a CCHO-60 Renal 50 g protein restriction diet Expected Outcomes/Goals: controlled DM and controlled uremic synptoms Plan discussed with: Patient, Other (JAMES Chisholm) VALERIE SEGURA MD Jun 29, 2024 23:34
[2024-06-30] VITALS (7 sets, daily range): BP systolic 126–144; BP diastolic 51–73; PULSE 84–104; RESP 16–18; TEMP 98.1–98.4; O2SAT 91–94
[2024-06-30 07:14] LABS: Basophils # (auto) 0 10 ^3/uL (0-0.2); Basophils % (auto) 0.2 % (0.0-2.0); Eosinophils # (auto) 0 10 ^3/uL (0-0.8); Eosinophils % (auto) 0.1 % (0.0-7.0); Hematocrit 37.9 % (36.0-46.0); Hemoglobin 12.5 g/dL (12.2-16.2); Lymphocytes # (auto) 0.6 10 ^3/uL (0.4-5.4); Lymphocytes % (auto) 8.8 % (10.0-50.0); Mean Corpuscular Hemoglobin 30.8 pg (28.0-32.0); Mean Corpuscular Hgb Conc. 32.9 g/dL (32.0-36.0); Mean Corpuscular Volume 93.6 fL (80.0-100.0); Monocytes # (auto) 0.6 10 ^3/uL (0-1.3); Neutrophils # (auto) 5.6 10 ^3/uL (1.6-8.6); Neutrophils % (auto) 81.9 % (37.0-80.0); Nucleated Red Blood Cells % 0.3 %; Platelet Count (auto) 395 10^3/uL (140-450); Red Blood Cells 4.05 10^6/uL (4.0-5.20); White Blood Cell 6.9 10^3/uL (4.4-10.8)
--- NOTE | 2024-06-30 12:49 | DVHPN2 ---
Subjective Doing better but she still has some cough The chest x-ray was done yesterday still shows right pleural effusion Changes from previous H/P or p: Changes Objective Vitals Vital Signs Date Time Temp Pulse Resp B/P (MAP) Pulse Ox O2 Delivery O2 Flow Rate FiO2 06/30/24 11:19 144/73 06/30/24 08:00 Nasal Cannula* 2 28 06/30/24 07:56 91 06/29/24 20:00 101 06/29/24 17:06 97.9 17 97.9 Intake/Output Intake and Output 06/30/24 07:00 Intake Total 1400 ml Balance 1400 ml Intake Oral 1100 ml IV Total 300 ml # Voids 6 General Appearance: Alert, Other (Disoriented, hallucinating) Extremities: No edema Medications Current Medications Medications Dose Ordered Sig/Ben Route Start Time Stop Time Status Last Admin Dose Admin Vancomycin HCl 0 ml @ 0 mls/hr UD IV 06/24/24 19:00 Aztreonam 2 gm/ Dextrose 50 ml @ 100 mls/hr Q12HR IV 06/24/24 22:00 06/30/24 10:00 100 MLS/HR Losartan Potassium 25 mg DAILY PO 06/25/24 10:00 06/30/24 11:19 25 MG Tacrolimus 2 mg BIDAC PO 06/25/24 07:00 06/30/24 06:15 2 MG Prednisone 5 mg DAILY PO 06/25/24 10:00 06/30/24 11:19 5 MG Nifedipine 30 mg DAILY PO 06/25/24 10:00 06/30/24 11:19 30 MG Atorvastatin Calcium 20 mg HS PO 06/24/24 22:00 06/29/24 22:31 20 MG Albuterol 2.5 mg Q6HPRN PRN NEB 06/24/24 19:00 Diagnostic Test (Pha) 1 strip ACHS 06/24/24 22:00 06/30/24 11:21 1 STRIP Insulin Human Regular HS SC 06/24/24 22:00 06/29/24 22:40 6 UNITS Insulin Human Regular AC SC 06/25/24 07:00 06/30/24 12:08 12 UNITS Dextrose 50 ml UD PRN IV 06/24/24 19:00 Ondansetron HCl 4 mg Q4HP PRN IV 06/24/24 19:00 Enoxaparin Sodium 40 mg DAILY SC 06/25/24 10:00 06/30/24 11:21 40 MG Acetaminophen 650 mg Q6HP PRN PO 06/24/24 19:00 06/27/24 12:10 650 MG Vancomycin HCl 250 ml @ 250 mls/hr Q24H IV 06/25/24 16:00 06/29/24 16:00 250 MLS/HR Haloperidol Lactate 2.5 mg Q8HP PRN IM 06/25/24 13:15 06/26/24 11:56 2.5 MG Acetaminophen/ Hydrocodone Bitart 1 tab Q6HP PRN PO 06/27/24 21:30 06/30/24 12:05 1 TAB Laboratory Results Laboratory Tests 06/28/24 05:45 06/30/24 05:45 Urinalysis Test 06/26/24 21:50 Urine Color Light-yellow (Yellow) Urine Clarity Clear (Clear) Urine pH 6.0 (5.0-9.0) Urine Specific [place] 1.017 (1.001-1.035) Urine Protein Trace (Negative) H Urine Ketones Trace (Negative) Urine Blood Negative /uL (Negative) Urine Nitrite Negative (Negative) Urine Bilirubin Negative (Negative) Urine Urobilinogen Normal mg/dL (Negative) Urine Leukocyte Esterase Negative /uL (Negative) Urine RBC <1 /hpf (0 - 4) Urine Microscopic WBC 1 /HPF (0-5) Urine Squamous Epithelial Cells Few /hpf (<5) Urine Bacteria None seen /hpf (None Seen) Urine Glucose 3+ mg/dL (Normal) H Microbiology Microbiology Date/Time Source Procedure Growth Status 06/26/24 21:50 Voided Urine Urine Culture - Preliminary Resulted 06/26/24 19:55 Nose MRSA Screen - Final Complete 06/24/24 18:46 Blood Blood Culture - Final Staphylococcus epidermidis Complete Assessment/Plan Assessment/Plan Right lower lobe pneumonia Right pleural effusion Acute kidney injury superimposed on chronic kidney disease History of kidney transplant on antirejection medications Hyperkalemia Acute metabolic encephalopathy Sepsis due to pneumonia Hypertension Type 2 diabetes Recurrent UTIs Skin cancer Gallstones Constipation Diverticulosis Hepatomegaly Plan IV antibiotics aztreonam and vancomycin Oxygen as needed Haldol 2.5 mg IM every 8 hours p.r.n. agitation Sitter at the bedside Telemetry Resume antirejection medications including tacrolimus and prednisone Nifedipine for the hypertension Losartan Accu-Cheks for diabetes control 06/26/2024: Continue IV antibiotics Continue Haldol p.r.n. The patient refused to get labs today Monitor closely 06/27/2024: Continue the IV antibiotics P.r.n. Haldol Continue the anti-rejection medications Physical therapy evaluation Monitor closely The rest of the management will depend on the hospital course 06/28/2024: Continue the IV antibiotics Physical therapy Out of bed as tolerated Monitor closely in the hospital 1 more day Discharge planning for tomorrow 06/29/24: Repeat CXR Sputum C&S Continue Azreonam and Vanco Discussed with her son at the bedside 06/30/2024: Pleural effusion: Discussed with Dr. Bedoya he will check to see if she needs thoracentesis Pneumonia: Continue IV antibiotics Metabolic encephalopathy, resolved Generalized weakness: Continue physical therapy Plan discussed with: Patient My Orders Orders - YAMILETH LOPEZ MD Procedure Category Date Status Time Hydrocodone-Acet PHA 06/30/24 Transmitted 10/325mg Tab ([place] 13:00 Date of Service: Jun 30, 2024 Billing Provider: YAMILETH LOPEZ MD Common Visit Codes: NOT BILLABLE YAMILETH LOPEZ MD Jun 30, 2024 12:49
--- NOTE | 2024-06-30 13:54 | DVHNC2 ---
Procedure - Ultrasound-guided RIGHT thoracentesis procedure note: Physician: Dr Marcello Bedoya Time out time: 1301 Patient medications and allergies reviewed. The risks and benefits of the pr ocedure and the sedation options and risk were discussed with the patient. All questions were answered and informed consent was obtained. Patient identification and proposed procedure were verified prior to the procedure by the physician, and a nurse in the patient's room. The heart rate, respiratory rate, oxygen saturations, blood pressure, adequacy of pulmonary ventilation, and response to care were monitored throughout the procedure. The physical status of the patient was reassessed after the procedure. Date: 06/30/2024 Consent: Consent was obtained from patient's healthcare proxy prior to procedure. Indication, risks, and benefits were explained at length. Procedure summary: A time out was performed and a chest x-ray was reviewed prior to procedure. The appropriate site was confirmed and marked. My hands were washed immediately prior to the procedure, I wore a surgical cap, mask with protective eyewear, sterile gown and sterile gloves throughout the procedure. The patient was prepped and draped in a sterile manner using chlorhexidine scrub after the appr opriate level was percussed and confirmed by ultrasound. 1% lidocaine was used to anesthetize the skin, subcutaneous tissue, superior aspect of the rib periosteum and parietal pleura. A finder needle was then introduced over the superior aspect of the rib to locate the pleural fluid; DRE fluid was aspirated. Thoracentesis needle was then introduced through the skin incision into the pleural space using negative aspiration pressure. The thoracentesis catheter was then threaded without difficulty. 600 mL's of DRE colored fluid were removed without difficulty. The catheter was then removed. No immediate complications were noted during the procedure. A postprocedure chest x-ray is pending at the time of this note. The pleural fluid will be sent for cultures and cytology. Estimated blood loss is less than 5 mL's. CPT: 50586 VALERIE BEDOYA MD Jun 30, 2024 13:54
[2024-06-30 16:55] LABS: Body Fluid Polymorphonuclear 56 % (0-25)
[2024-06-30 17:03] LABS: Body Fluid Red Blood Cells 12254 CUMM (0-2000); Body Fluid White Blood Cells 972 CUMM (0-200)
[2024-06-30] MEDS: HYDROcodone-ACET 10/325MG TAB PO PRN (17:09)
--- NOTE | 2024-06-30 21:48 | DVHPN2 ---
Progress Note - Dictate Date Seen: Jun 30, 2024 Medical Necessity Reason Pt with a Central, PICC or Fol: No Subjective Patient seen and examined at bedside. Breathing comfortably on room air. Overnight events reviewed. vital signs Vital Sign Date Time Temp Pulse Resp B/P (MAP) Pulse Ox O2 Delivery O2 Flow Rate FiO2 06/30/24 21:00 98.1 96 18 128/51 (76) 94 98.1 06/30/24 08:00 Nasal Cannula* 2 28 Total Intake and Output 06/29/24 06/29/24 06/30/24 15:00 23:00 07:00 Intake Total 50 ml 1150 ml 200 ml Balance 50 ml 1150 ml 200 ml medications Current Medications Medications Dose Ordered Sig/Ben Route Start Time Stop Time Status Last Admin Dose Admin Vancomycin HCl 0 ml @ 0 mls/hr UD IV 06/24/24 19:00 Aztreonam 2 gm/ Dextrose 50 ml @ 100 mls/hr Q12HR IV 06/24/24 22:00 06/30/24 21:19 100 MLS/HR Losartan Potassium 25 mg DAILY PO 06/25/24 10:00 06/30/24 11:19 25 MG Tacrolimus 2 mg BIDAC PO 06/25/24 07:00 06/30/24 17:07 2 MG Prednisone 5 mg DAILY PO 06/25/24 10:00 06/30/24 11:19 5 MG Nifedipine 30 mg DAILY PO 06/25/24 10:00 06/30/24 11:19 30 MG Atorvastatin Calcium 20 mg HS PO 06/24/24 22:00 06/29/24 22:31 20 MG Albuterol 2.5 mg Q6HPRN PRN NEB 06/24/24 19:00 Cancel Diagnostic Test (Pha) 1 strip ACHS 06/24/24 22:00 06/30/24 17:09 1 STRIP Insulin Human Regular HS SC 06/24/24 22:00 06/29/24 22:40 6 UNITS Insulin Human Regular AC SC 06/25/24 07:00 06/30/24 17:23 2 UNITS Dextrose 50 ml UD PRN IV 06/24/24 19:00 Ondansetron HCl 4 mg Q4HP PRN IV 06/24/24 19:00 Enoxaparin Sodium 40 mg DAILY SC 06/25/24 10:00 06/30/24 11:21 40 MG Acetaminophen 650 mg Q6HP PRN PO 06/24/24 19:00 06/27/24 12:10 650 MG Vancomycin HCl 250 ml @ 250 mls/hr Q24H IV 06/25/24 16:00 06/30/24 16:00 250 MLS/HR Haloperidol Lactate 2.5 mg Q8HP PRN IM 06/25/24 13:15 06/26/24 11:56 2.5 MG Acetaminophen/ Hydrocodone Bitart 1 tab Q4HP PRN PO 06/30/24 14:00 06/30/24 17:09 1 TAB objective Gen.: Patient lying in bed in no apparent distress. Breathing on room air. Head: Normocephalic, atraumatic. Eyes: EOMI/PERRLA. Ears: Normal hearing. Normal anatomy. Neck/trachea: Trachea midline, supple. Nose: Normal external anatomy. Mouth: Moist mucous membranes. Chest: Decreased air entry bilaterally. No wheezing or rhonchi. Cardiovascular: Positive S1, positive S2. Regular rate and rhythm. Abdomen: Positive bowel sounds in all 4 quadrants. Soft, non-tender, non- distended. : Deferred. Rectal: Deferred. Skin: Warm, dry. Intact. Extremities: 2+ radial pulses bilaterally. No lower extremity edema. Neuro: Awake, alert, oriented x3. No gross motor or sensory deficits. Cranial nerves II through XII intact. Gait not assessed. laboratory and microbiology Laboratory Tests 06/30/24 05:45 06/28/24 05:45 Test 06/28/24 05:45 Range/Units Serum Glucose 185 H 74-106 mg/dL Assessment/Plan Impression: Right lower lobe pneumonia Right pleural effusion PEGGY on CKD Hx of kidney transplant, on antirejection medications Hyperkalemia Acute metabolic encephalopathy Sepsis due to pneumonia Hypertension Type 2 diabetes Recurrent UTIs Skin cancer Gallstones Events: On room air Supplemental oxygen PRN CXR showed moderate right pleural effusion. Effacement of right hemidiaphragm and right heart border. S/p right thoracentesis today - 600 mL pj fluid drained from right pleural space. Continue antibiotics Bronchodilators PRN Continue steroids - prednisone PO Incentive spirometry Accu-Cheks, ISS Head of bed elevation Aspiration precautions Patient is stable for discharge from the pulmonary standpoint. Disposition per hospitalist. Labs and imaging reviewed. Rest of plan as noted below. Plan: Supplemental oxygen PRN Titrate to keep O2 sats above 92%. Antibiotics Steroids, prednisone PO Incentive spirometry BP control - antihypertensive medication Antirejection medications due to kidney transplant Monitor renal function due to PEGGY. Monitor electrolytes. Supplement as necessary. Monitor ins and outs. DVT prophylaxis. Prognosis: Guarded given patient's multiple co-morbidities. Rest of plan per hospitalist and other consultants. Thank you, Dr. Claudio, for allowing me to participate in this patient's care. Further recommendations will depend on the patient's clinical course. Please do not hesitate to contact me if you have any questions or concerns. This medical document was created using an electronic medical record system with [employer] dictation system. Although these documentations are being carefully reviewed, there may still be some phonetic and typographical changes. The errors are purely typographical, due to imperfection on the software program, and do not reflect any compromise in the patient's medical care. Dietary Evaluation Review Comments: Follow a CCHO-60 Renal 50 g protein restriction diet Expected Outcomes/Goals: controlled DM and controlled uremic synptoms Plan discussed with: Patient, Other (JAMES Chisholm) VALERIE SEGURA MD Jun 30, 2024 21:48
[2024-07-01 05:00] VITALS: BP 124/67; PULSE 102; RESP 18; TEMP 98.4; O2SAT 94
[2024-07-01 08:00] VITALS: PULSE 94; O2SAT 94
[2024-07-01 08:12] LABS: Basophils # (auto) 0 10 ^3/uL (0-0.2); Basophils % (auto) 0.2 % (0.0-2.0); Eosinophils # (auto) 0 10 ^3/uL (0-0.8); Eosinophils % (auto) 0.2 % (0.0-7.0); Hematocrit 38.7 % (36.0-46.0); Hemoglobin 12.2 g/dL (12.2-16.2); Lymphocytes # (auto) 0.7 10 ^3/uL (0.4-5.4); Lymphocytes % (auto) 9.3 % (10.0-50.0); Mean Corpuscular Hemoglobin 30.6 pg (28.0-32.0); Mean Corpuscular Hgb Conc. 31.5 g/dL (32.0-36.0); Mean Corpuscular Volume 97.1 fL (80.0-100.0); Monocytes # (auto) 0.6 10 ^3/uL (0-1.3); Monocytes % (auto) 7.7 % (0.0-12.0); Neutrophils # (auto) 6.1 10 ^3/uL (1.6-8.6); Neutrophils % (auto) 82.6 % (37.0-80.0); Nucleated Red Blood Cells % 0.1 %; Platelet Count (auto) 361 10^3/uL (140-450); Red Blood Cells 3.99 10^6/uL (4.0-5.20); Red Cell Distribution Width 15.9 % (11.8-14.3); White Blood Cell 7.3 10^3/uL (4.4-10.8)
[2024-07-01 08:53] VITALS: BP 124/58; PULSE 95; RESP 18; TEMP 98.6; O2SAT 94
[2024-07-01] MEDS ORDERED: FLUC200T PO (11:51)
[2024-07-01] MEDS ORDERED: LINE1TAB6 PO (11:51)
[2024-07-01] MEDS ORDERED: NITR-87 PO (11:51)
--- NOTE | 2024-07-01 11:56 | DVHDS2 ---
Discharge Summary Date of Admission Jun 24, 2024 at 18:54 Date of Discharge: Jul 01, 2024 Labs/Diagnostic Data: Laboratory Results Test 07/01/24 11:36 07/01/24 06:46 06/30/24 15:19 06/29/24 15:28 POC Glucose 235 mg/dl (70-106) White Blood Count 7.3 10^3/uL (4.4-10.8) Red Blood Count 3.99 10^6/uL (4.0-5.20) Hemoglobin 12.2 g/dL (12.2-16.2) Hematocrit 38.7 % (36.0-46.0) Mean Corpuscular Volume 97.1 fL (80.0-100.0) Mean Corpuscular Hemoglobin 30.6 pg (28.0-32.0) Mean Corpuscular Hemoglobin Concent 31.5 g/dL (32.0-36.0) Red Cell Distribution Width 15.9 % (11.8-14.3) Platelet Count 361 10^3/uL (140-450) Mean Platelet Volume 7.2 fL (6.9-10.8) Neutrophils (%) (Auto) 82.6 % (37.0-80.0) Lymphocytes (%) (Auto) 9.3 % (10.0-50.0) Monocytes (%) (Auto) 7.7 % (0.0-12.0) Eosinophils (%) (Auto) 0.2 % (0.0-7.0) Basophils (%) (Auto) 0.2 % (0.0-2.0) Neutrophils # (Auto) 6.1 10 ^3/uL (1.6-8.6) Lymphocytes # (Auto) 0.7 10 ^3/uL (0.4-5.4) Monocytes # (Auto) 0.6 10 ^3/uL (0-1.3) Eosinophils # (Auto) 0 10 ^3/uL (0-0.8) Basophils # (Auto) 0 10 ^3/uL (0-0.2) Nucleated Red Blood Cells 0.1 % Creatinine 1.15 mg/dL (0.550-1.02) Glomerular Filtration Rate Calc 49 mL/min (>90) Body Fluid Source Pleural fluid Body Fluid pH 7.0 Body Fluid WBC (Manual) 972 CUMM (0-200) Body Fluid RBC (Manual) 42286 CUMM (0-2000) Body Fluid Mononuclear Cells 44 % Body Fluid Polymorphonuclear Cells 56 % (0-25) Vancomycin Level Trough 17.8 ug/mL (5-10) Test 06/28/24 05:45 06/26/24 21:50 06/24/24 18:46 Sodium Level 139 mmol/L (136-145) Potassium Level 4.2 mmol/L (3.5-5.1) Chloride Level 110 mmol/L (98-107) Carbon Dioxide Level 18 mmol/L (20-31) Anion Gap 11 (5-15) Blood Urea Nitrogen 30 mg/dL (9-23) BUN/Creatinine Ratio 29.4 (10.0-20.0) Serum Glucose 185 mg/dL (74-106) Calcium Level 10.9 mg/dL (8.7-10.4) Magnesium Level 1.9 mg/dL (1.6-2.6) Total Bilirubin 0.3 mg/dL (0.2-1.0) Aspartate Amino Transferase (AST) 14 U/L (13-40) Alanine Aminotransferase (ALT) 13 U/L (7-40) Alkaline Phosphatase 73 U/L (46-116) Total Protein 5.2 g/dL (5.7-8.2) Albumin 3.6 g/dL (3.2-4.8) Urine Color Light-yellow (Yellow) Urine Clarity Clear (Clear) Urine pH 6.0 (5.0-9.0) Urine Specific [place] 1.017 (1.001-1.035) Urine Protein Trace (Negative) Urine Ketones Trace (Negative) Urine Blood Negative /uL (Negative) Urine Nitrite Negative (Negative) Urine Bilirubin Negative (Negative) Urine Urobilinogen Normal mg/dL (Negative) Urine Leukocyte Esterase Negative /uL (Negative) Urine RBC <1 /hpf (0 - 4) Urine Microscopic WBC 1 /HPF (0-5) Urine Squamous Epithelial Cells Few /hpf (<5) Urine Bacteria None seen /hpf (None Seen) Urine Glucose 3+ mg/dL (Normal) Lactic Acid Level 0.9 mmol/L (0.4-2.0) Troponin I High Sensitivity 9 ng/L (</=34) Other Laboratory Tests 07/01/24 06:46 06/28/24 05:45 Brief Hx & Hospital Course: Final diagnoses: Right lower lobe pneumonia Right pleural effusion Acute kidney injury superimposed on chronic kidney disease History of kidney transplant on antirejection medications Hyperkalemia Acute metabolic encephalopathy Sepsis due to pneumonia Hypertension Type 2 diabetes Recurrent UTIs Skin cancer Gallstones Constipation Diverticulosis Hepatomegaly UTI with Alix albicans Patient is a 79-year-old female who has a kidney transplant came with pneumonia and UTI The urine showed yeast The chest x-ray shows right lung pneumonia and right pleural effusion She required thoracentesis of 600 mL drained from the right lung She was started on IV antibiotics Initially she was very confused and hallucinating but slowly with the treatment she improved She was given IV fluids which improved her kidney failure Her mental status improved significantly and she is back to normal and she is completely alert and oriented now She had a thoracentesis yesterday Her breathing is better She is on room air now The blood culture showed 1 bottle of staph epi and the other was negative The urine showed Alix albicans The patient is allergic to penicillin and Levaquin and sulfa and therefore she will be discharged on Zyvox and Diflucan and Macrobid long-term 100 mg daily to prevent UTIs Resume other home medications Follow up with the primary care physician as soon as possible Condition at Discharge: Stable Final Diagnosis/Problems List Right lower lobe pneumonia Right pleural effusion Acute kidney injury superimposed on chronic kidney disease History of kidney transplant on antirejection medications Hyperkalemia Acute metabolic encephalopathy Sepsis due to pneumonia Hypertension Type 2 diabetes Recurrent UTIs Skin cancer Gallstones Constipation Diverticulosis Hepatomegaly UTI with the yeast Discharge Disposition: Home SNF Discharge Will this Physician continue t: No Discharge Instruct/Medications Diet: Cardiac 2g Na,low cholest Activity: No Restrictions, As Tolerated Follow Up/Referral: PCP as soon as possible Medications: Zyvox 600 mg twice a day for 10 days Diflucan 200 mg daily for 7 days Macrobid 100 mg daily Resume other home medications Discharge Statement: "Patient was advised to return to the ER or call 911 if any headaches, dizziness, shortness of breath, chest pain, abdominal pain, bleeding, fevers, or worsening of medical condition. Patient was counseled about treatment plan, medications, possible side effects, patientverbalized understanding. All questions were answered to the best of my ability. This discharge took greater then 30 minutes in planning, reviewing documentation, counseling the patient, and discussing with other team members." ASSESSMENT ASSESSMENT Assessment Right lower lobe pneumonia Right pleural effusion Acute kidney injury superimposed on chronic kidney disease History of kidney transplant on antirejection medications Hyperkalemia Acute metabolic encephalopathy Sepsis due to pneumonia Hypertension Type 2 diabetes Recurrent UTIs Skin cancer Gallstones Constipation Diverticulosis Hepatomegaly UTI with the yeast Date of Service: Jul 01, 2024 Billing Provider: YAMILETH LOPEZ MD Common Visit Codes: NOT BILLABLE YAMILETH LOPEZ MD Jul 01, 2024 11:56
[2024-07-01 13:01] VITALS: BP 120/54; PULSE 100; RESP 18; TEMP 98.1; O2SAT 93
[2024-07-01 13:23] VITALS: BP 124/58
[2024-07-01] MEDS: FLUCONAZOLE 200MG/100ML 100 ML IV ONE (13:44)
--- NOTE | 2024-07-01 22:28 | DVHPN2 ---
Progress Note - Dictate Date Seen: Jul 01, 2024 Medical Necessity Reason Pt with a Central, PICC or Fol: No Subjective Patient seen and examined at bedside. Breathing comfortably on room air. Overnight events reviewed. vital signs Vital Sign Date Time Temp Pulse Resp B/P (MAP) Pulse Ox O2 Delivery O2 Flow Rate FiO2 07/01/24 13:01 98.1 100 18 120/54 (76) 93 98.1 07/01/24 08:00 Room Air* 0 21 Total Intake and Output 06/30/24 06/30/24 07/01/24 15:00 23:00 07:00 Intake Total 500 ml 140 ml Balance 500 ml 140 ml medications Current Medications Medications Dose Ordered Sig/Ben Route Start Time Stop Time Status Last Admin Dose Admin Albuterol 2.5 mg Q6HPRN PRN NEB 06/24/24 19:00 Cancel objective Gen.: Patient lying in bed in no apparent distress. Breathing on room air. Head: Normocephalic, atraumatic. Eyes: EOMI/PERRLA. Ears: Normal hearing. Normal anatomy. Neck/trachea: Trachea midline, supple. Nose: Normal external anatomy. Mouth: Moist mucous membranes. Chest: Decreased air entry bilaterally. No wheezing or rhonchi. Cardiovascular: Positive S1, positive S2. Regular rate and rhythm. Abdomen: Positive bowel sounds in all 4 quadrants. Soft, non-tender, non- distended. : Deferred. Rectal: Deferred. Skin: Warm, dry. Intact. Extremities: 2+ radial pulses bilaterally. No lower extremity edema. Neuro: Awake, alert, oriented x3. No gross motor or sensory deficits. Cranial nerves II through XII intact. Gait not assessed. laboratory and microbiology Laboratory Tests 07/01/24 06:46 06/28/24 05:45 Test 06/28/24 05:45 Range/Units Serum Glucose 185 H 74-106 mg/dL Assessment/Plan Impression: Right lower lobe pneumonia Right pleural effusion PEGGY on CKD Hx of kidney transplant, on antirejection medications Hyperkalemia Acute metabolic encephalopathy Sepsis due to pneumonia Hypertension Type 2 diabetes Recurrent UTIs Skin cancer Gallstones Events: Remains on room air Supplemental oxygen PRN S/p right thoracentesis on 06/30/24 - 600 mL pj fluid drained from right pleural space. CXR shows no pneumothorax post thoracentesis. Complete antibiotics Bronchodilators PRN Continue steroids - prednisone PO Incentive spirometry Accu-Cheks, ISS Head of bed elevation Aspiration precautions Maintain euvolemia Monitor renal function Patient is stable for discharge from the pulmonary standpoint. Disposition per hospitalist. Labs and imaging reviewed. Rest of plan as noted below. Plan: Supplemental oxygen PRN Titrate to keep O2 sats above 92%. Antibiotics Steroids, prednisone PO Incentive spirometry BP control - antihypertensive medication Antirejection medications due to kidney transplant Monitor renal function due to PEGGY. Monitor electrolytes. Supplement as necessary. Monitor ins and outs. DVT prophylaxis. Prognosis: Guarded given patient's multiple co-morbidities. Rest of plan per hospitalist and other consultants. Thank you, Dr. Claudio, for allowing me to participate in this patient's care. Further recommendations will depend on the patient's clinical course. Please do not hesitate to contact me if you have any questions or concerns. This medical document was created using an electronic medical record system with [employer] dictation system. Although these documentations are being carefully reviewed, there may still be some phonetic and typographical changes. The errors are purely typographical, due to imperfection on the software program, and do not reflect any compromise in the patient's medical care. Dietary Evaluation Review Comments: Follow a CCHO-60 Renal 50 g protein restriction diet Expected Outcomes/Goals: controlled DM and controlled uremic synptoms Plan discussed with: Patient, Other (RN) VALERIE SEGURA MD Jul 01, 2024 22:28
[2024-07-02 13:07] LABS: Protein, Body Fluid 3.3 g/dL (.)
== END 2024-07-01 16:00 | disposition home or self-care (01) | DRG 871 ==
LOC: EDBD 12:18 → ER 12:18 → OVERFLOW 18:54 → WEST WING 06-25 22:10 → TELE-WESTW 06-26 14:47 → TELE-EAST 06-26 17:30
PROVIDERS: ADMIT Internal Medicine Geriatric Medicine; ATTEND Internal Medicine Geriatric Medicine
PROC: 05HB33Z Insertion of Infusion Device into Right Basilic Vein, Percutaneous Approach (ICD-10-PCS; 2024-06-24)
PROC: B54MZZA Ultrasonography of Right Upper Extremity Veins, Guidance (ICD-10-PCS; 2024-06-24)
PROC: 0W993ZZ Drainage of Right Pleural Cavity, Percutaneous Approach (ICD-10-PCS; principal; 2024-06-30)
DX: A41.50 Gram-negative sepsis, unspecified (principal); G93.41 Metabolic encephalopathy; J15.69 Pneumonia due to other Gram-negative bacteria; J15.9 Unspecified bacterial pneumonia; N17.9 Acute kidney failure, unspecified; I16.9 Hypertensive crisis, unspecified; J90 Pleural effusion, not elsewhere classified; B37.49 Other urogenital candidiasis; T86.19 Other complication of kidney transplant; Z94.0 Kidney transplant status; E87.5 Hyperkalemia; R16.0 Hepatomegaly, not elsewhere classified; C44.89 Other specified malignant neoplasm of overlapping sites of skin; E11.22 Type 2 diabetes mellitus with diabetic chronic kidney disease; I12.9 Hypertensive chronic kidney disease with stage 1 through stage 4 chronic kidney disease, or unspecified chronic kidney disease; K57.30 Diverticulosis of large intestine without perforation or abscess without bleeding; K80.20 Calculus of gallbladder without cholecystitis without obstruction; N18.9 Chronic kidney disease, unspecified; K59.00 Constipation, unspecified; Z88.0 Allergy status to penicillin; Z88.2 Allergy status to sulfonamides; Z88.8 Allergy status to other drugs, medicaments and biological substances; Z88.1 Allergy status to other antibiotic agents; Z91.041 Radiographic dye allergy status; Z79.899 Other long term (current) drug therapy; Z79.891 Long term (current) use of opiate analgesic; Z79.4 Long term (current) use of insulin; Z79.82 Long term (current) use of aspirin; Z79.1 Long term (current) use of non-steroidal anti-inflammatories (NSAID); Z85.828 Personal history of other malignant neoplasm of skin; Z83.3 Family history of diabetes mellitus; Z82.3 Family history of stroke; Z82.49 Family history of ischemic heart disease and other diseases of the circulatory system; Z87.440 Personal history of urinary (tract) infections; Y92.89 Other specified places as the place of occurrence of the external cause
CPT/HCPCS: 32555; 36415; 70450; 71045; 74176; 80048; 80053; 80202; 81001; 82565; 82962; 83605; 83735; 83986; 84484; 85025; 87040; 87077; 87081; 87086; 87088; 87186; 87205; 89051; 93005; 97110; 97116; 97163; 97530; G0378; J1450; J1815; J7060; J7507